=== PATIENT | male | born 1940 | race Caucasian/White ===

== ENCOUNTER 2017-05-17 13:33 | Inpatient (IN) | payer MEDICARE, BC ==
[2017-05-17] MEDS ORDERED: Amiodarone HCl 450 MG, Admixture Fee 1 EACH in Dextrose 5% in Water 250 ML IVPB SCH ×3 (14:00)
[2017-05-17 14:32] LABS: #Basophils 0.1 thou/uL (0.0-0.2); #Eosinphils 0.2 thou/uL (0.0-0.7); #Lymphocytes 1.9 thou/uL (1.20-3.40); #Monocytes 0.5 thou/uL (0.11-0.59); #Neutrophils 5.9 thou/uL (1.40-6.50); %Eosinophils 1.9 % (0.0-10.0); %Lymphocytes 22.5 % (21.0-51.0); %Monocytes 5.3 % (0.0-10.0); %Neutrophils 69.3 % (42.0-75.0); Hemoglobin 15.1 g/dL (14.0-18.0); Mean Corpuscular HGB CONC 33.8 g/dL (32.0-36.0); Mean Corpuscular Hemoglobin 34.8 pg (27.0-31.0); Mean Platelet Volume 7.6 fL (7.4-10.4); Platelet Count 129 thou/uL (130-400); RBC Distribution Width 12.6 % (11.5-14.5); Red Blood Cell (RBC) Count 4.33 mill/uL (4.70-6.10); White Blood Cell (WBC) Count 8.6 thou/uL (4.8-10.8)
[2017-05-17 14:54] LABS: ALT (SGPT) 25 U/L (8-55); AST (SGOT) 25 U/L (5-34); Albumin 3.4 g/dL (3.4-4.8); Alkaline Phosphatase 64 U/L (40-150); Anion Gap 14 mmol/L (10-20); BUN (Urea Nitrogen) 18 mg/dL (8.4-25.7); Bilirubin, Total 0.6 mg/dL (0.2-1.2); CK (CPK) 366 U/L (30-200); Calc. Creatinine Clearance 0 mL/min (70-130); Calcium 8.9 mg/dL (7.8-10.44); Carbon Dioxide 22 mmol/L (23-31); Chloride 109 mmol/L (98-107); Estimated GFR-MDRD 82; Globulin 2.8 g/dL (2.4-3.5); Glucose 146 mg/dL (83-110); Magnesium 2.1 mg/dL (1.6-2.6); Potassium 3.9 mmol/L (3.5-5.1); Protein, Total 6.2 g/dL (5.8-8.1); Sodium 141 mmol/L (136-145)
[2017-05-17 14:57] LABS: Troponin I Less than 0.010 ng/mL (< 0.028)
[2017-05-17] MEDS ORDERED: Magnesium Sulfate 3 GM in Sodium Chloride 0.9% 100 ML IVPB SCH (15:00)
[2017-05-17 15:01] LABS: CKMB 7.5 ng/mL (0-6.6)
--- NOTE | 2017-05-17 15:41 | CON ---
DATE OF CONSULTATION: 05/17/2017 REASON FOR CONSULTATION: Ventricular tachycardia. HISTORY OF PRESENT ILLNESS: Mr. Waddell is a 77-year-old gentleman. The patient has a long history of PVCs, for which he was asymptomatic. He had a history of cardiac catheterization in the remote past and no significant coronary disease. He was actually seen in the office this week, doing well, asym ptomatic, no complaints. Today, he started having episodes of recurrent near syncope and had some ch est discomfort. He called an ambulance and was found to be in a wide complex tachycardia and was bro ught here and was found to have ventricular tachycardia, rate of 200 with the same morphology as his PVCs. He has received amiodarone, now he is having nonsustained ventricular tachycardia and he is cu rrently on amiodarone drip, improving. He is asymptomatic now and doing well. PAST MEDICAL HISTORY: He had a history of PVCs which he had a high burden, although he is fairly asy mptomatic. He underwent cardiac catheterization in 2011. In August, he was found to have 20% LAD ryan que, 20% right coronary plaque, normal ejection fraction. The patient had an echocardiogram done in 05/2016. The ejection fraction 55% to 60%, did have frequent PVCs that time. The patient otherwise had an EKG done recently again showing frequent monomorphic PVCs. MEDICATIONS: Bisoprolol, pravastatin, and Ecotrin. ALLERGIES: None known. SOCIAL HISTORY: No alcohol or tobacco abuse. FAMILY HISTORY: Negative for heart disease at a young age. REVIEW OF SYSTEMS: GENERAL: Beginning to feel better, overall felt very weak when he had the tachycardia. VISION: No changes. HEARING: No changes. PULMONARY: No cough or wheezing. CARDIAC: He had near syncope and chest pain when his heart rate was 200 beats per minute, but these symptoms resolved quickly when tachycardia improved. PHYSICAL EXAMINATION: GENERAL: This is a pleasant gentleman who is resting comfortably now, feeling much better. VITAL SIGNS: His pulse now is 100 beats per minute, still has some nonsustained V-tach intermittentl y, but not the sustained ventricular tachycardia he was having, still having frequent PVCs. NECK: Neck veins are normal. Carotid normal upstrokes. No bruits. HEENT: Eyes: Sclerae nonicteric. LUNGS: Lungs clear anteriorly and laterally. CARDIAC: Frequent episodes of rapid heart rate. No murmur, rub or gallop. ABDOMEN: Soft and nontender. No hepatosplenomegaly. EXTREMITIES: No clubbing or cyanosis. There is no edema. Peripheral pulses are intact. SKIN: Warm and dry. LABORATORY DATA: Laboratories all pending. ASSESSMENT: 1. Ventricular tachycardia, sustained, responded to amiodarone. 2. Normal left ventricular function. 3. Minimal atherosclerosis of the coronaries in 2011. PLAN: 1. Intravenous amiodarone. 2. We will give intravenous magnesium. 3. Arranging for an electrophysiologic consultation. The patient likely will need ablation of ventr icular tachycardia, for which he is highly symptomatic.
--- NOTE | 2017-05-17 15:45 | HP ---
PRIMARY CARE PHYSICIAN: Dr. Luke Hung. PRIMARY DORMITORY SUPERVISOR: Dr. Zapata. REASON FOR ADMISSION: Ventricular tachycardia, presyncope, chest pain. HISTORY OF PRESENT ILLNESS: A 77-year-old male with history of SVT and premature ventricular complex es as well as dyslipidemia who presented today in the emergency room with complaint of dizziness and chest pain. The patient reports that this morning he was not feeling good. He was feeling intermitt ently dizziness as if he is going to pass out. He did not have any associated initially chest pain, palpitation or shortness of breath. He was having increasing number of dizzy spell and woozy spell w ithout any associated symptoms. He was ignoring to come to emergency room, but after lunch, he start ed having chest pain which was substernal in location associated with dizziness which was little bit more prolonged and he was feeling mild shortness of breath, mild nausea and that is why he called par amedics and paramedics brought him to the emergency room. When he came to emergency room, he was having ventricular tachycardia with heart rate about 200. He was given adenosine without any relief. The patient also took aspirin 2 times at home, one in [facility] and one after lunch. Patient was given amiodarone drip and after that his ventricular tachycardia was aborted, but subsequently patient kept getting short runs of ventricular tachycardia and multiple PVCs. Dr. Zapata was notified and Dr. Zapata saw this patient in the emergency room and he recommended CCU admission for close monitoring. When I saw this patient in the emergency room, he was having intermittent bouts of short run of ventr icular tachycardia though patient was not symptomatic. He denies any excessive caffeinated product. He denies any dyspnea on exertion. He denies any angina. He denies any UTI symptoms. He denies an y constipation, diarrhea, melena or hematochezia. He denies any abdominal pain. He denies any alcoh ol abuse. REVIEW OF SYSTEMS: The following complete review of systems was negative, unless otherwise mentioned in the HPI or below: Constitutional: Weight loss or gain, ability to conduct usual activities. Skin: Rash, itching. Eyes: Double vision, pain. ENT/Mouth: Nose bleeding, neck stiffness, pain, tenderness. Cardiovascular: Palpitations, dyspnea on exertion, orthopnea. Respiratory: Shortness of breath, wheezing, cough, hemoptysis, fever or night sweats. Gastrointestinal: Poor appetite, abdominal pain, heartburn, nausea, vomiting, constipation, or diarr hea. Genitourinary: Urgency, frequency, dysuria, nocturia. Musculoskeletal: Pain, swelling. Neurologic/Psychiatric: Anxiety, depression. Allergy/Immunologic: Skin rash, bleeding tendency. Please see my HPI for pertinent positives and negatives. All other review of systems reviewed and ne gative except as mentioned in the HPI. ADDITIONAL INFORMATION: This patient saw yesterday Dr. Zapata in his office and at that time, everyt winter was normal. The patient also has a history of dyslipidemia and he was self-cutting down his sta tin therapy because of muscle cramps. The patient also had cardiac catheterization few years ago whi ch was normal. He also had stress test which was also unremarkable. The patient is not sure when he had echocardiography. PAST MEDICAL HISTORY: Hypertension, dyslipidemia, chronic low back pain, history of irregular heartb eats. PAST SURGICAL HISTORY: Cardiac catheterization by Dr. Zapata. PAST PSYCHIATRIC HISTORY: Reviewed and negative. SOCIAL HISTORY: Patient is and lives at home with his . He drinks alcohol occasionally and rarely. He denies any smoking. He quit smoking in 1979. He denies any other illicit drug abuse . He is retired. FAMILY HISTORY: No strong family history of premature coronary artery disease, stroke or cancer. ALLERGIES: No known drug allergies. CURRENT HOME MEDICATIONS: Flexeril 10 mg t.i.d., Tylenol #3 one or two tablets q.4 hourly p.r.n., as pirin 325 mg p.o. daily, pravastatin 80 mg p.o. at bedtime, bisoprolol 5 mg p.o. daily. EMERGENCY ROOM COURSE: Patient has received magnesium sulfate 3 g, amiodarone 150 mg bolus x2 and th en drip started, IV fluid is given. PHYSICAL EXAMINATION: VITAL SIGNS: On arrival, blood pressure 94/85, pulse 215, respiratory rate 22, temperature 97.8, sat uration 97% on room air, weight 102.06 kilograms. GENERAL: Patient is currently alert, oriented, no acute distress. HEAD: Normocephalic, atraumatic. EYES: Pupils round, reactive to light. Extraocular muscles intact. ENT: Oropharynx within normal limits. Moist mucous membranes. No oral lesions. No pharyngeal eryt glenn, no exudate. NECK: Supple, no JVD, no thyromegaly, no carotid bruit, no jugular venous distention. LUNGS: Clear to auscultation without any rhonchi or rales. CARDIAC: S1, S2 appears irregular. No murmur elicited, no gallop, no rub. ABDOMEN: Soft, bowel sounds present, obesity present. No suprapubic tenderness. BACK: Examination unremarkable, no CVA tenderness. EXTREMITIES: Upper extremity passive movements of all joints are normal. Lower extremities: No celeste ma. Good peripheral pulsation. SKIN: No skin rash. HEMATOLOGICAL SYSTEM: No lymphadenopathy. PSYCHIATRIC: Normal affect. NEUROLOGIC: The patient is alert and oriented x3. Cranial nerves II-XII intact. Motor and sensatio n within normal limits. No focal neurological deficit noted. IMAGING DATA AND SIGNIFICANT LABORATORY DATA: 1. All EKG done in Emergency Room and reviewed. The patient has junctional rhythm, multiple PVCs, s hort run of ventricular tachycardia and one prolonged episode of ventricular tachycardia. 2. CBC: WBC 8.6, hemoglobin 15.1, MCV 103, platelet 129. 3. BMP: Sodium 141, potassium 3.9, chloride 109, carbon dioxide 22, BUN 18, creatinine 0.90, glucos e 146, calcium 8.9, magnesium 2.1. 4. LFT: AST 25, ALT 25, alkaline phosphatase 64, albumin 3.4, CK 366, troponin I less than 0.010, B ASSISTANT FRONT END MANAGER 160.9. ASSESSMENT AND PLAN/IMPRESSION: 1. Ventricular tachycardia, asymptomatic. Patient is hemodynamically unstable in the emergency room , he was hypotensive, he was having chest pain and angina. This patient currently is on amiodarone d rip. I spoke with Dr. Zapata and we will keep in CCU for close monitoring. Patient is also going to get magnesium sulfate in emergency room. We will continue amiodarone drip per protocol. Cardiology will be consulted. We will obtain echocardiography. This patient will need electrophysiologic cons ultation and possibly this patient will need ventricular tachycardia ablation in [place]. We will do serial cardiac enzymes to rule out acute coronary syndrome. Meanwhile, we will continue with aspirin 325 mg p.o. daily. 2. Hypertension. If blood pressure permits, then we will continue bisoprolol 5 mg p.o. daily. 3. Dyslipidemia. We will check lipid profile. We will continue pravastatin 80 mg p.o. at bedtime. We will monitor total CK. 4. Elevated BNP. We will obtain echocardiography to assess ejection fraction and other structural a bnormality. 5. Elevated total CK, may be related with his statin therapy. We will monitor CK level. 6. Macrocytosis and mild thrombocytopenia. We will start folic acid and vitamin B12 therapy. 7. Obesity. Dietary education given and weight loss education given. Healthy lifestyle measures di scussed with the patient. 8. Deep venous thrombosis prophylaxis, Lovenox 40 mg subcutaneously daily. 9. Gastrointestinal prophylaxis. Pepcid 20 mg p.o. b.i.d. 10. Code status: The patient is FULL CODE. The patient's is surrogate decision maker. Disposition plan based on clinical course. We are expecting patient's stay in the hospital more than 2 midnights. Plan of care discussed with the patient in detail in the emergency room.
[2017-05-17] MEDS ORDERED: Zolpidem Tartrate 5 MG TAB PO PRN (17:17)
[2017-05-17] MEDS ORDERED: Loratadine 10 MG TAB PO PRN (17:17)
[2017-05-17] MEDS ORDERED: Labetalol HCl 100 MG/20 ML VIAL SLOW IVP PRN (17:17)
[2017-05-17] MEDS ORDERED: Acetaminophen 325 MG TAB PO PRN (17:17)
[2017-05-17] MEDS ORDERED: Milk Of Magnesia 30 ML UDCUP PO PRN (17:17)
[2017-05-17] MEDS ORDERED: Senokot 8.6 MG TAB PO PRN (17:17)
[2017-05-17] MEDS ORDERED: Eucerin (Mineral Oil/Petrolatum,White) 30 gm Jar TOP PRN (17:17)
[2017-05-17] MEDS ORDERED: Chloraseptic Spray 180 ml Bottle PO PRN (17:17)
[2017-05-17] MEDS ORDERED: Metoclopramide HCl 10 MG/2 ML VIAL IVP PRN (17:17)
[2017-05-17] MEDS ORDERED: Nitroglycerin 0.4 MG TAB (25 Tab Bottle) SL PRN (17:17)
[2017-05-17] MEDS ORDERED: Sodium Chloride 0.65% Nasal 44 ML BOT EA NARE PRN (17:17)
[2017-05-17] MEDS ORDERED: HYDROcodone/Acetaminophen 5/325 mg Tablet PO PRN (17:17)
[2017-05-17] MEDS ORDERED: Diabetic Tussin 200 MG/10 ML UDCUP PO PRN (17:17)
[2017-05-17] MEDS ORDERED: Cyclobenzaprine 10 MG TAB PO PRN (17:17)
[2017-05-17] MEDS ORDERED: Loperamide HCl 2 MG CAP PO PRN (17:17)
[2017-05-17] MEDS ORDERED: Artificial Tears 18 DROP/0.9 ML EA EYE PRN (17:17)
[2017-05-17] MEDS ORDERED: Mag-Al 1200 mg/1200 mg/30 ML UDCUP PO PRN (17:17)
[2017-05-17] MEDS ORDERED: Metoprolol Tartrate 5 MG/5 ML VIAL ONE (18:07)
--- NOTE | 2017-05-17 20:03 | RAD ---
AP VIEW OF THE CHEST: 05/17/17 INDICATION: SVT COMPARISON: Prior exam dated 11/17/15. IMPRESSION: No acute abnormality. COMMENTS: Pacer pads overlie the chest wall. Heart size is within normal limits. The lungs are clear. No pleura l effusion or pneumothorax is evident. No acute osseous abnormality is evident. POS: [facility]
[2017-05-17] MEDS ORDERED: Metoprolol Tartrate 5 MG/5 ML VIAL IVP SCH (20:15)
[2017-05-17] MEDS: Metoprolol Tartrate 50 MG TAB PO SCH (20:36)
[2017-05-17] MEDS: Amiodarone HCl 450 MG in Dextrose 5% in Water 250 ML IVPB SCH ×2 (20:36)
[2017-05-17] MEDS: Famotidine 20 MG TAB PO SCH (20:36)
[2017-05-17] MEDS ORDERED: Pravastatin Sodium 40 MG TAB PO SCH (21:00)
[2017-05-17] MEDS: Nitroglycerin 2% Ointment 1 INCH/1 GM Packet TOP SCH (21:52)
[2017-05-18 04:18] LABS: #Basophils 0.1 thou/uL (0.0-0.2); #Eosinphils 0.3 thou/uL (0.0-0.7); #Lymphocytes 2.4 thou/uL (1.20-3.40); #Monocytes 0.7 thou/uL (0.11-0.59); #Neutrophils 5.7 thou/uL (1.40-6.50); %Basophils 0.8 % (0.0-1.0); %Eosinophils 2.9 % (0.0-10.0); %Lymphocytes 26.6 % (21.0-51.0); %Monocytes 7.9 % (0.0-10.0); %Neutrophils 61.8 % (42.0-75.0); Hemoglobin 14.7 g/dL (14.0-18.0); Mean Corpuscular HGB CONC 33.4 g/dL (32.0-36.0); Mean Corpuscular Hemoglobin 34.4 pg (27.0-31.0); Mean Platelet Volume 7.9 fL (7.4-10.4); Platelet Count 136 thou/uL (130-400); RBC Distribution Width 12.6 % (11.5-14.5); Red Blood Cell (RBC) Count 4.27 mill/uL (4.70-6.10); White Blood Cell (WBC) Count 9.2 thou/uL (4.8-10.8)
[2017-05-18 04:52] LABS: Anion Gap 10 mmol/L (10-20); BUN (Urea Nitrogen) 16 mg/dL (8.4-25.7); Calc. Creatinine Clearance 132 mL/min (70-130); Calcium 8.6 mg/dL (7.8-10.44); Carbon Dioxide 25 mmol/L (23-31); Cardiac Risk 3.7 (Less than 4.5); Chloride 110 mmol/L (98-107); Cholesterol 127 mg/dl (< 200 Desired); Estimated GFR-MDRD Greater than 90; Glucose 107 mg/dL (83-110); HDL Cholesterol 34 mg/dL (>60 Neg Risk); LDL Cholesterol, Calculated 72 mg/dL; Magnesium 2.2 mg/dL (1.6-2.6); Potassium 3.9 mmol/L (3.5-5.1); Sodium 141 mmol/L (136-145); Triglycerides 103 mg/dL (Less than 150)
[2017-05-18] MEDS: Nitroglycerin 2% Ointment 1 INCH/1 GM Packet TOP SCH ×2 (06:33→15:01)
[2017-05-18] MEDS: Metoprolol Tartrate 50 MG TAB PO SCH (08:46)
[2017-05-18] MEDS: Famotidine 20 MG TAB PO SCH (08:49)
[2017-05-18] MEDS ORDERED: Folic Acid 1 MG TAB PO SCH (09:00)
[2017-05-18] MEDS ORDERED: Aspirin 325 MG TAB PO SCH (09:00)
[2017-05-18] MEDS ORDERED: Cyanocobalamin (Vitamin B-12) 1,000 MCG TAB PO SCH (09:00)
[2017-05-18] MEDS ORDERED: Prevnar 13-Val Conj/PF 0.5 ML SYRINGE IM ONE (09:00)
[2017-05-18] MEDS ORDERED: Enoxaparin Sodium 40 MG/0.4 ML SYRINGE SC SCH (09:00)
--- NOTE | 2017-05-18 10:24 | PDOC.PN ---
- Subjective Encounter Start Date: 05/18/17 Encounter Start Time: 09:30 -: old records requested/rev Patient seen and examined. No new complaints. No overnight events still has NSVT - Objective Resuscitation Status: Resuscitation Status FULL:Full Resuscitation MAR Reviewed: Yes Vital Signs & Weight: Vital Signs (12 hours) Temp Pulse Resp Pulse Ox 05/18/17 08:00 97.9 F 77 16 98 05/18/17 07:00 97.9 F 05/18/17 03:00 98.0 F 05/17/17 23:00 98.7 F Weight Admit Weight 246 lb 11.156 oz Weight 246 lb 11.156 oz Most Recent Monitor Data Heart Rate from ECG 74 NIBP 134/82 NIBP BP-Mean 98 Respiration from ECG 25 SpO2 100 I&O: 05/17/17 05/18/17 05/19/17 06:59 06:59 06:59 Intake Total 453 250 Output Total 1070 200 Balance -617 50 Result Diagrams: 05/18/17 03:16 05/18/17 03:16 EKG Reviewed by me: Yes (NSVT) Phys Exam - Physical Examination Constitutional: NAD HEENT: PERRLA, moist MMs, sclera anicteric Neck: no JVD, supple Respiratory: no wheezing, no rales, no rhonchi Cardiovascular: no significant murmur, no rub, irregular Gastrointestinal: soft, non-tender, no distention, positive bowel sounds Musculoskeletal: no edema, pulses present Neurological: non-focal, normal sensation, moves all 4 limbs Psychiatric: normal affect, A&O x 3 Skin: no rash, normal turgor Dx/Plan (1) Chest pain Code(s): R07.9 - CHEST PAIN, UNSPECIFIED Status: Acute (2) Demand ischemia Code(s): I24.8 - OTHER FORMS OF ACUTE ISCHEMIC HEART DISEASE Status: Acute (3) Dizziness Code(s): R42 - DIZZINESS AND GIDDINESS Status: Acute (4) Elevated brain natriuretic peptide (BNP) level Code(s): R79.89 - OTHER SPECIFIED ABNORMAL FINDINGS OF BLOOD CHEMISTRY Status : Acute (5) Ventricular tachycardia Code(s): I47.2 - VENTRICULAR TACHYCARDIA Status: Acute (6) Chronic low back pain Code(s): M54.5 - LOW BACK PAIN; G89.29 - OTHER CHRONIC PAIN Status: Chronic (7) Dyslipidemia Code(s): E78.5 - HYPERLIPIDEMIA, UNSPECIFIED Status: Chronic (8) Hypertension Code(s): I10 - ESSENTIAL (PRIMARY) HYPERTENSION Status: Chronic (9) Macrocytosis Code(s): D75.89 - OTHER SPECIFIED DISEASES OF BLOOD AND BLOOD-FORMING ORGANS Status: Chronic (10) Obesity (BMI 30-39.9) Code(s): E66.9 - OBESITY, UNSPECIFIED Status: Chronic - Plan cont current plan of care * continue amiodaron drip * EP consulted and he will need ablation of VT * so will transfer to [facility] [place] * medication reviewed as below * symptomatic treatment * paper work done. Review of Systems - Review of Systems ENT: negative: Ear Pain, Ear Discharge, Nose Pain, Nose Discharge, Nose Congestion, Mouth Pain, Mouth Swelling, Throat Pain, Throat Swelling, Other Respiratory: negative: Cough, Dry, Shortness of Breath, Hemoptysis, SOB with Excertion, Pleuritic Pain, Sputum, Wheezing Cardiovascular: negative: chest pain, palpitations, orthopnea, paroxysmal nocturnal dyspnea, edema, light headedness, other Gastrointestinal: negative: Nausea, Vomiting, Abdominal Pain, Diarrhea, Constipation, Melena, Hematochezia, Other Genitourinary: negative: Dysuria, Frequency, Incontinence, Hematuria, Retention , Other Musculoskeletal: negative: Neck Pain, Shoulder Pain, Arm Pain, Back Pain, Hand Pain, Leg Pain, Foot Pain, Other Skin: negative: Rash, Lesions, Solomon, Bruising, Other - Medications/Allergies Allergies/Adverse Reactions: Allergies Allergy/AdvReac Type Severity Reaction Status Date / Time No Known Allergies Allergy Verified 05/17/17 19:48 Medications: Current Medications Acetaminophen (Tylenol) 650 mg PO Q4H PRN PRN Reason: Headache/Fever or Pain Last Admin: 05/18/17 08:46 Dose: 650 mg Hydrocodone Bitart/Acetaminophen ([place] 5/325) 1 tab PO Q4H PRN PRN Reason: Moderate Pain (4-6) Al Hydroxide/Mg Hydroxide (Maalox) 30 ml PO Q6H PRN PRN Reason: Heartburn or Indigestion Artificial Tears (Tears Naturale) 0 drop EA EYE PRN PRN PRN Reason: Dry Eyes Aspirin (Aspirin) 325 mg PO DAILY VICKIE Last Admin: 05/18/17 08:46 Dose: 325 mg Cyanocobalamin (Vitamin B-12) 1,000 mcg PO DAILY [facility] Last Admin: 05/18/17 08:52 Dose: 1,000 mcg Cyclobenzaprine HCl (Flexeril) 10 mg PO TID PRN PRN Reason: Muscle Spasm Enoxaparin Sodium (Lovenox) 40 mg SC 0900 [facility] Last Admin: 05/18/17 08:46 Dose: 40 mg Famotidine (Pepcid) 20 mg PO BID [facility] Last Admin: 05/18/17 08:49 Dose: 20 mg Folic Acid (Folvite) 1 mg PO DAILY [facility] Last Admin: 05/18/17 08:46 Dose: 1 mg Guaifenesin (Robitussin Sf) 200 mg PO Q4H PRN PRN Reason: Cough Amiodarone HCl 450 mg/ (Dextrose/Water) 259 mls @ 0 mls/hr IVPB INF [facility]; Per Protocol PRN Reason: Protocol Last Admin: 05/17/17 20:36 Dose: 259 mls Labetalol HCl (Normodyne) 10 mg SLOW IVP Q4H PRN PRN Reason: Systolic BP > 180 Loperamide HCl (Imodium) 2 mg PO PRN PRN PRN Reason: Diarrhea/Loose Stools Loratadine (Claritin) 10 mg PO DAILYPRN PRN PRN Reason: Sinus Symptoms Magnesium Hydroxide (Milk Of Magnesium) 30 ml PO DAILYPRN PRN PRN Reason: Constipation Metoclopramide HCl (Reglan) 10 mg IVP Q6H PRN PRN Reason: Nausea/Vomiting Metoprolol Tartrate (Lopressor) 50 mg PO BID [facility] Last Admin: 05/18/17 08:46 Dose: 50 mg Mineral Oil/White Petrolatum (Eucerin Cream) 0 gm TOP BIDPRN PRN PRN Reason: Dry Skin Nitroglycerin (Nitrostat) 0.4 mg SL Q5MIN PRN PRN Reason: Chest Pain Nitroglycerin (Nitro-Bid 2% Ointment) 0.5 inch TOP Q8HR [facility] Last Admin: 05/18/17 06:33 Dose: Not Given Phenol (Chloraseptic [place] 180 Ml Bot) 0 ml PO PRN PRN PRN Reason: Sore Throat Pravastatin Sodium (Pravachol) 40 mg PO HS [facility] Last Admin: 05/17/17 20:36 Dose: 40 mg Senna (Senokot) 2 tab PO HSPRN PRN PRN Reason: Constipation Sodium Chloride ([place] Nasal [place] 0.65%) 0 ml EA NARE QIDPRN PRN PRN Reason: Nasal Congestion Zolpidem Tartrate (Ambien) 5 mg PO HSPRN PRN PRN Reason: Insomnia
--- NOTE | 2017-05-18 10:52 | PDOC.CTH ---
Cardiology Progress Note - Subjective Pt. seen and eval. No new overnight events. He continues to have asymptonatic NSVTACH. He remains on amiodarone. Waiying for transfer to [facility] for EP eval. and prob. Vtach ablation. - Objective Vital Signs Temp Pulse Resp Pulse Ox 05/18/17 08:00 97.9 F 77 16 98 05/18/17 07:00 97.9 F 05/18/17 03:00 98.0 F 05/17/17 23:00 98.7 F Admit Weight 246 lb 11.156 oz Weight 246 lb 11.156 oz 05/17/17 05/18/17 05/19/17 06:59 06:59 06:59 Intake Total 453 250 Output Total 1070 500 Balance -617 -250 - Physical Examination General/Neuro: alert & oriented x3 Neck: carotid US brisk Lungs: CTA Heart: PMI normal, RRR, other: (occasional runs of rapid rate. Monitor indicates NSVTACH.) Abdomen: no HSM, NT/ND - Labs Result Diagrams: 05/18/17 03:16 05/18/17 03:16 Troponin/CKMB CK-MB (CK-2) 7.5 ng/mL (0-6.6) H* 05/17/17 14:26 Troponin I Less than 0.010 ng/mL (< 0.028) 05/17/17 14:26 - Assessment/Plan 1. NSVTACH. Frequent episodes up to 10-20 beat runs. Transfer to [facility] for probable ablation. 2. Hx. of mild CAD. cath approx. 2 years ago. CIE's unremarkable. No chest pain. He did have 1 episode of chest discomfort prior to admission. It is unlikely to have significant progression of his CAD but this may be a possible cause of the recent onset of NSVTACH. 3. Dyslipidemia. Continue statins. 4. Leg cramps. These are only at night and not likely associated with the statins. Review of Systems - Review of Systems Respiratory: reports: no symptoms reported Cardiac (ROS): reports: no symptoms reported ABD/GI: reports: no symptoms reported Musculoskeletal: reports: no symptoms reported Neurological: reports: no symptoms reported
[2017-05-18] MEDS: Amiodarone HCl 450 MG in Dextrose 5% in Water 250 ML IVPB SCH ×2 (10:56)
--- NOTE | 2017-05-18 11:37 | DIS ---
DATE OF ADMISSION: 05/17/2017 DATE OF DISCHARGE: 05/18/2017 PRIMARY CARE PHYSICIAN: Luke Hung M.D. DISCHARGE DISPOSITION: [facility] for higher level of care. PRIMARY DISCHARGE DIAGNOSES: 1. Chest pain and dizziness due to paroxysmal ventricular tachycardia. 2. Demand ischemia of myocardium. 3. Elevated BNP with normal ejection fraction. 4. Ventricular tachycardia on amiodarone drip. SECONDARY DISCHARGE DIAGNOSES: Obesity with body mass index 30, macrocytosis without anemia, hypertension, dyslipidemia, chronic low back pain, history of PVCs and irregular heartbeat. PRIMARY PROCEDURE/OPERATION: None. RADIOLOGICAL INVESTIGATION: Chest x-ray was normal. SIGNIFICANT LABS: WBC 9.2, hemoglobin 14.7, MCV 103, platelets 136, sodium 141 , potassium 3.9, BUN 16, creatinine 0.73, magnesium 2.2. LFTs normal. CK 366, CK-MB 7.5, troponin I less than 0.010. LDL 72. TSH 1.59. DISCHARGE MEDICATIONS: Patient is on the following medication prior to arrival , aspirin 325 mg p.o. daily, bisoprolol 2.5 mg p.o. daily, pravastatin 20 mg p.o. at bedtime. Currently while in hospital, the patient is getting amiodarone drip as per protocol. We started vitamin B12 1000 mcg p.o. daily, Flexeril 10 mg t.i.d. p.r.n., Pepcid 20 mg p.o. b.i.d., folic acid 1 mg p.o. daily. The patient has received Lopressor during night time and patient is also on metoprolol 50 mg p.o. b.i.d., nitropatch q.8 hourly. The patient also has received magnesium sulfate. CONTRAINDICATIONS: None. CODE STATUS: FULL CODE. INPATIENT CONSULTANTS: Dr. Zapata was consulted while in hospital. TEST RESULTS PENDING ON DISCHARGE: None. ALLERGIES: No known drug allergies. DISCHARGE PLAN: Post hospital, the patient is discharged to [facility] for higher level of care. This patient needs ventricular ablation for ventricular tachycardia. HOSPITAL COURSE: A 77-year-old male who had a cardiac catheterization which was normal and he also had echocardiography which showed normal EF. This patient has a long history of asymptomatic PVCs and which was gradually getting worse, but patient was asymptomatic up until yesterday when he was feeling more dizzy spell as well as he was having angina. The patient had prolonged run of ventricular tachycardia. He was also having several short run of ventricular tachycardia. He was evaluated by Cardiology. They recommended to start amiodarone drip overnight. We kept him in the CCU and we continued the amiodarone drip. He required a couple of doses of Lopressor. In addition to that, he also was given metoprolol 50 mg twice daily. He has reduced frequency of short run of ventricular tachycardia, but he it is still ongoing, though patient is completely asymptomatic and that is why we spoke with sulfuric acid plant supervisor and they recommended to transfer him to [facility] where they can take care of ventricular tachycardia with ablation. Paper work for discharge done and discharge medication reconciliation done. Overall, this patient is clinically stable for discharge for higher level of care. Total time spent to arrange this discharge more than 30 minutes MTDD
[2017-05-18 16:34] VITALS: TEMP 97.4
== END 2017-05-18 18:20 | disposition short-term general hospital (02) | DRG 309 ==
LOC: ERS 13:33 → CCU 15:09
PROVIDERS: ADMIT Internal Medicine; ATTEND Internal Medicine
DX: I47.2 Ventricular tachycardia (principal); I24.8 Other forms of acute ischemic heart disease; D69.6 Thrombocytopenia, unspecified; I95.9 Hypotension, unspecified; I25.10 Atherosclerotic heart disease of native coronary artery without angina pectoris; I10 Essential (primary) hypertension; E78.5 Hyperlipidemia, unspecified; E66.9 Obesity, unspecified; Z68.30 Body mass index [BMI] 30.0-30.9, adult; M54.5 Low back pain; R79.89 Other specified abnormal findings of blood chemistry
CPT/HCPCS: 36415; 71010; 80048; 80053; 80061; 82550; 82553; 83735; 83880; 84443; 84484; 85025; 93005; 93010; 93306; 96360; 96365; 96366; 96368; 96376; J0282; J1650; J3475; J7050; J7070

== ENCOUNTER 2017-06-07 05:17 | Inpatient (IN) | payer MEDICARE, BC ==
[2017-06-07 05:40] LABS: #Basophils 0.1 thou/uL (0.0-0.2); #Eosinphils 0.1 thou/uL (0.0-0.7); #Lymphocytes 3.4 thou/uL (1.20-3.40); #Monocytes 0.6 thou/uL (0.11-0.59); #Neutrophils 7.7 thou/uL (1.40-6.50); %Basophils 0.9 % (0.0-1.0); %Eosinophils 0.8 % (0.0-10.0); %Lymphocytes 28.4 % (21.0-51.0); %Monocytes 5.2 % (0.0-10.0); %Neutrophils 64.7 % (42.0-75.0); Hemoglobin 14.8 g/dL (14.0-18.0); Mean Corpuscular HGB CONC 32.6 g/dL (32.0-36.0); Mean Corpuscular Hemoglobin 33.3 pg (27.0-31.0); Platelet Count 233 thou/uL (130-400); RBC Distribution Width 12.4 % (11.5-14.5); Red Blood Cell (RBC) Count 4.43 mill/uL (4.70-6.10); White Blood Cell (WBC) Count 11.9 thou/uL (4.8-10.8)
[2017-06-07 05:51] LABS: INR-International Normal Ratio 1.1; PTT 27.4 SEC (22.9-36.1); Prothrombin Time 13.9 SEC (12.0-14.7)
[2017-06-07 06:07] LABS: CKMB 2.6 ng/mL (0-6.6)
[2017-06-07] MEDS ORDERED: Amiodarone In Dextrose 200 ML IVPB SCH (06:15)
[2017-06-07] MEDS ORDERED: Lidocaine 2 gm/D5W 500 ml 500 ML ONE (06:59)
[2017-06-07] MEDS ORDERED: Artificial Tears 18 DROP/0.9 ML EA EYE PRN (07:32)
[2017-06-07] MEDS ORDERED: Milk Of Magnesia 30 ML UDCUP PO PRN (07:32)
[2017-06-07] MEDS ORDERED: Sodium Chloride 0.65% Nasal 44 ML BOT EA NARE PRN (07:32)
[2017-06-07] MEDS ORDERED: Zolpidem Tartrate 5 MG TAB PO PRN (07:32)
[2017-06-07] MEDS ORDERED: Loperamide HCl 2 MG CAP PO PRN (07:32)
[2017-06-07] MEDS ORDERED: Mag-Al 1200 mg/1200 mg/30 ML UDCUP PO PRN (07:32)
[2017-06-07] MEDS ORDERED: Ondansetron ODT 4 MG TAB PO PRN (07:32)
[2017-06-07] MEDS ORDERED: Senokot 8.6 MG TAB PO PRN (07:32)
[2017-06-07] MEDS ORDERED: Eucerin (Mineral Oil/Petrolatum,White) 30 gm Jar TOP PRN (07:32)
[2017-06-07] MEDS ORDERED: Loratadine 10 MG TAB PO PRN (07:32)
[2017-06-07] MEDS ORDERED: Nitroglycerin 0.4 MG TAB (25 Tab Bottle) SL PRN (07:32)
[2017-06-07] MEDS ORDERED: Diabetic Tussin 200 MG/10 ML UDCUP PO PRN (07:32)
[2017-06-07] MEDS ORDERED: HYDROcodone/Acetaminophen 5/325 mg Tablet PO PRN (07:32)
[2017-06-07] MEDS ORDERED: Ondansetron HCl/PF 4 MG/2 ML Vial IVP PRN (07:32)
[2017-06-07] MEDS ORDERED: Chloraseptic Spray 180 ml Bottle PO PRN (07:32)
--- NOTE | 2017-06-07 07:38 | RAD ---
SINGLE VIEW OF THE CHEST: COMPARISON: 05/17/17. HISTORY: Ventricular tachycardia and chest pain. FINDINGS: Single view of the chest shows a normal sized cardiomediastinal silhouette. There is no evidence of c onsolidation, mass, or pleural effusion. The bones are unremarkable. IMPRESSION: No evidence of acute cardiopulmonary disease. POS: [facility]
[2017-06-07 08:57] LABS: ALT (SGPT) 31 U/L (8-55); AST (SGOT) 34 U/L (5-34); Albumin 3.5 g/dL (3.4-4.8); Alkaline Phosphatase 61 U/L (40-150); Anion Gap 12 mmol/L (10-20); BUN (Urea Nitrogen) 17 mg/dL (8.4-25.7); Bilirubin, Total 0.6 mg/dL (0.2-1.2); Calc. Creatinine Clearance 0 mL/min (70-130); Calcium 8.8 mg/dL (7.8-10.44); Carbon Dioxide 24 mmol/L (23-31); Chloride 107 mmol/L (98-107); Estimated GFR-MDRD 80; Glucose 143 mg/dL (83-110); Magnesium 2.3 mg/dL (1.6-2.6); Potassium 4.3 mmol/L (3.5-5.1); Protein, Total 6.5 g/dL (5.8-8.1); Sodium 139 mmol/L (136-145)
[2017-06-07 09:00] LABS: Troponin I 0.047 ng/mL (< 0.028)
--- NOTE | 2017-06-07 11:33 | HP ---
PRIMARY CARE PHYSICIAN: Dr. Luke Hung. REASON FOR ADMISSION: Syncope and ventricular tachycardia. HISTORY OF PRESENT ILLNESS: A 77-year-old male who was recently admitted in our hospital for presyncopal episode, at that time, patient had ventricular tachycardia. This patient has history of paroxysmal SVT as well as premature ventricular complexes and he is followed by Dr. Zapata. This patient was recently diagnosed with a symptomatic ventricular tachycardia and subsequently he required admission in ICU. He was treated with amiodarone drip and we transferred him to [facility] on 05/18/2017 for ventricular ablation. At that time, we did echocardiography in our hospital, which showed normal EF and diastolic dysfunction. After discharge from our hospital on 05/18/2017, patient was evaluated by wash mill operator there and patient had a cardiac catheterization on 2017. Per patient, cardiac catheterization was completely clean without any blockage. On Friday05/21/2017, patient had a ventricular tachycardia ablation and subsequently patient was discharged home on 05/22/2017. On discharge, the patient was prescribed propafenone 225 mg twice daily. Patient was advised to take bisoprolol 2.5 mg in the morning. The patient was taking all his medication and he was doing well up until last night. Patient reports that last night when he woke up for PE, he was having difficulty urinating. Subsequently, he felt dizzy and he was stumbling his gait and he fell and he passed out. After that he does not have any recall of event. Whatever he remembers is paramedics tried to get IV access on him. He was diagnosed with ventricular tachycardia and he required cardioversion. This patient also had a ventricular tachycardia in our emergency room, required cardioversion. Subsequently amiodarone drip was started on lidocaine drip was also started. When I saw this patient at that time, patient was asymptomatic. At this point, we are admitting for cardiogenic syncope for ventricular tachycardia. Patient denies any chest pain, palpitation. He denies any angina. He denies any constipation, diarrhea, melena, hematochezia. He denies any UTI symptoms. He denies any focal motor or sensory symptoms. REVIEW OF SYSTEMS: The following complete review of systems was negative, unless otherwise mentioned in the HPI or below: Constitutional: Weight loss or gain, ability to conduct usual activities. Skin : Rash, itching. Eyes: Double vision, pain. ENT/Mouth: Nose bleeding, neck stiffness, pain, tenderness. Cardiovascular: Palpitations, dyspnea on exertion, orthopnea. Respiratory: Shortness of breath, wheezing, cough, hemoptysis, fever or night sweats. Gastrointestinal: Poor appetite, abdominal pain, heartburn, nausea, vomiting, constipation, or diarrhea. Genitourinary: Urgency, frequency, dysuria, nocturia. Musculoskeletal: Pain, swelling. Neurologic/Psychiatric: Anxiety, depression. Allergy/Immunologic: Skin rash, bleeding tendency. Please see HPI for pertinent positives and negatives. All other review of systems reviewed and negative except as mentioned in the HPI. CURRENT HOME MEDICATIONS: Aspirin 325 mg p.o. daily, pravastatin 20 mg p.o. at bedtime, bisoprolol 2.5 mg p.o. daily, and propafenone 225 mg twice daily. PAST MEDICAL HISTORY: Hypertension, dyslipidemia, chronic low back pain, history of paroxysmal ventricular tachycardia, history of frequent premature ventricular complexes, and history of paroxysmal supraventricular tachycardia. PAST SURGICAL HISTORY: Cardiac catheterization was done by Dr. Zapata. Patient also had a cardiac catheterization at [facility] on 2017 as well as ventricular tachycardia ablation on 05/21/2017. PAST PSYCHIATRIC HISTORY: Reviewed and negative. SOCIAL HISTORY: Patient is and lives at home with his . He drinks alcohol occasionally. He denies any smoking. He quit smoking in 1979. He denies any other illicit drug abuse. He is retired. FAMILY HISTORY: No strong family history of premature coronary artery disease, stroke, or cancer. ALLERGIES: No known drug allergies. EMERGENCY ROOM COURSE: Patient is given lidocaine and amiodarone drip. PHYSICAL EXAMINATION: VITAL SIGNS: On arrival, blood pressure 106/70, pulse 85, respiratory rate 15, temperature 97.6, saturation 99%, and weight 106.5 kilograms. GENERAL: Patient is currently alert, awake, in no obvious acute distress. HEAD: Normocephalic, atraumatic. EYES: Pupils round, reactive to light. Extraocular muscles intact. ENT: Oropharynx within normal limits. Moist mucous membranes. No oral lesions. No pharyngeal erythema, no exudate. NECK: Supple. No JVD, no thyromegaly, no carotid bruit, no jugular venous distention. LUNGS: Clear to auscultation without any rhonchi or rales. CARDIAC: S1 and S2 regular. No murmur elicited, no gallop, no rub. ABDOMEN: Soft, bowel sounds present, nontender, nondistended. No organomegaly , no mass, no suprapubic tenderness. BACK: Unremarkable, no CVA tenderness. EXTREMITIES: Upper extremity passive movement of all joints are normal. Lower extremities: No edema. Good peripheral pulsation. SKIN: No skin rash. HEMATOLOGICAL: No lymphadenopathy. NEUROLOGIC: Nonfocal examination. The patient moves all 4 limbs. Plantar bilateral flexor. PSYCHIATRIC: Normal affect. SIGNIFICANT LABORATORY DATA: EKG showing normal sinus rhythm. Currently, the patient had ventricular tachycardia strip. Even in our hospital, patient had ventricular tachycardia. CBC: WBC 11.9, hemoglobin 14.8, platelet 233, MCV 102, INR 1.1. BMP: Sodium 139, potassium 4.3, chloride 107, carbon dioxide 24, BUN 17, creatinine 0.92, glucose 143, calcium 8.8. Magnesium 2.3. LFT: AST 34, ALT 31, alkaline phosphatase 61, albumin 3.5, CK 127, CK-MB 2.6, troponin I 0.010. BNP 93.9. Troponin second one is 0.047. ASSESSMENT AND PLAN: 1. Cardiogenic syncope. Patient does have a syncopal episode at home and which is explained by ventricular tachycardia. The patient will be admitted in the CCU for close monitoring, given his recurrent nature of ventricular tachycardia to address immediately if that happens in CCU. Currently, patient is on amiodarone drip and lidocaine drip. Cardiology is consulted. This patient already had echocardiography in the recent past, so no need of repeating echocardiography. We will do serial cardiac enzymes to rule out acute coronary syndrome. 2. Recurrent ventricular tachycardia. This patient had ventricular tachycardia ablation in [facility] in [place] recently on 05/21/2017 and seems like this patient has failure of VT ablation. We will continue amiodarone drip as well as lidocaine drip as per Cardiology and antiarrhythmic medication will defer to Cardiology. Hydro Mechanic will needed to be consulted again. His magnesium level is normal. We will closely monitor in the CCU. 3. Elevated troponin, likely due to demand ischemia from ventricular tachycardia and cardiogenic syncope. 4. Macrocytosis. We will continue folic acid, vitamin B12 therapy while in hospital. 5. Hypertension. We will continue bisoprolol 2.5 mg p.o. daily. 6. Dyslipidemia. We will continue pravastatin 20 mg p.o. at bedtime. 7. Deep venous thrombosis prophylaxis. Lovenox 40 mg subcu daily. 8. Gastrointestinal prophylaxis. Pepcid 20 mg p.o. b.i.d. 9. Code status: The patient is FULL CODE. The patient's is surrogate decision maker. Disposition plan based on clinical course. We are expecting patient's stay in hospital more than 2 midnights. Plan of care discussed with the patient in detail. MTDD
[2017-06-07] MEDS: Amiodarone In Dextrose 200 ML IVPB SCH ×2 (12:00→23:25)
[2017-06-07 12:08] LABS: Troponin I 0.062 ng/mL (< 0.028)
[2017-06-07 12:54] VITALS: BMI 28.8
[2017-06-07] MEDS ORDERED: Lidocaine 2 gm/D5W 500 ml 500 ML IVPB SCH (16:15)
--- NOTE | 2017-06-07 17:56 | CON ---
DATE OF CONSULTATION: 06/07/2017 PRIMARY COMPUTER PROGRAMMING MANAGER: Tata Zapata M.D. REASON FOR CONSULTATION: Ventricular tachycardia. HISTORY OF PRESENT ILLNESS: Mr. Waddell is a very pleasant 77-year-old white gentleman who comes to [facility] via EMS. He was at home, was not feeling right. He has a pulse oximeter recommended by Nilo Zapata in case he ever wants to see what his heart rate is and he was on his way to the and he jus t collapsed on the floor. He was wedged between two pieces of furniture in the wall apparently. The called 911. They came in and started resuscitation, they put the pads on him and they found phan beauchamp to be in ventricular tachycardia. He was still awake though, he received one single shock which he remembers receiving and converted him into sinus rhythm. He was having a lot of ectopy after that, nonsustained VT and a couple of more episodes of sustained VT. He was loaded on amiodarone and broug ht into the hospital. He has a history of several PVCs in the past and ended up having syncope and s ustained ventricular tachycardia in 05/17. He was admitted, he responded well to amiodarone and was transferred to [place] for an ablation. He actually had 2 procedures done over there. He had a heart catheterization that showed nonobstructive coronary artery disease and eventually had a VT ablation which was apparently successful. He had not had any problems since. PAST MEDICAL HISTORY: 1. Hypertension. 2. Hyperlipidemia. 3. Chronic low back pain. 4. History of VT as above. 5. History of paroxysmal SVT as well. PAST SURGICAL HISTORY: 1. Cardiac [place] [address] Zapata and again recently at [facility]. 2. Recent VT ablation on 05/21. OUTPATIENT MEDICATIONS: Include, 1. Aspirin 325 mg a day. 2. Pravastatin 20 mg at bedtime. 3. Bisoprolol 2.5 mg a day. 4. Propafenone 225 mg twice a day. ALLERGIES: No known drug allergies. FAMILY HISTORY: Noncontributory. SOCIAL HISTORY: Drinks alcohol socially, quit smoking in 1979. No drug use. REVIEW OF SYSTEMS: A 12-point review of systems was done and is all negative unless stated in the hi story of present illness. PHYSICAL EXAMINATION: VITAL SIGNS: Temperature 98.1, pulse 81, respiratory rate 20, satting 98% on 1 liter. GENERAL: Awake, alert, oriented x3, in no distress. HEENT: Normocephalic. He has got a small gash in the left hindu. NECK: Supple. LUNGS: Clear. CARDIOVASCULAR: S1, S2, no S3 or S4, no murmurs. ABDOMEN: Soft. Positive bowel sounds. EXTREMITIES: No edema. SKIN: Warm and dry. LABORATORY WORK: Reviewed. White count 11, hemoglobin 14, hematocrit 45, platelet count 233. Coags were unremarkable. Chemistry unremarkable, normal electrolytes, glucose of 143, troponin was 0.01, 0.04, 0.06. BNP was 93, normal CK and CK-MB. Albumin of 3.5. Chest x-ray showed no acute process. ASSESSMENT AND PLAN: 1. Syncope. 2. Ventricular tachycardia. 3. Irritable LV on amiodarone only, requiring addition of lidocaine. PLAN: 1. At this point, he continues to have a lot of runs of nonsustained VT, even on both amiodarone and lidocaine. We will continue this overnight tomorrow. We will plan on starting to wean off lidocain e. We will obtain an electrophysiology consultation and make sure that we were not missing anything. We will get magnesium drawn to make sure it is not low, but normal potassium suggest otherwise. 2. Continue ICU observation. Thank you for letting us to participate in the care of your patient. We will follow.
[2017-06-07] MEDS: Enoxaparin Sodium 40 MG/0.4 ML SYRINGE SC SCH (18:08)
[2017-06-07] MEDS: Acetaminophen 325 MG TAB PO PRN (20:41)
[2017-06-07] MEDS: Simvastatin 5 MG TAB PO SCH (20:41)
[2017-06-07] MEDS: Famotidine 20 MG TAB PO SCH (20:41)
--- NOTE | 2017-06-07 22:27 | CON ---
DATE OF CONSULTATION: 06/07/2017 HISTORY OF PRESENT ILLNESS: Mr. Waddell is a very pleasant 77-year-old who was admitted for ventricula r tachycardia. He is not intubated. He has been loaded with amiodarone and placed on lidocaine drip. He says he has had a history of mul tiple PVCs for almost his entire life. He was treated with a beta chuck when Dr. Curtis used to take care of him. He recently went to [place] for a V-tach ablation. He has had 2 cardiac catheterizations one here and one over there that showed nonobstructive coronary disease. He is in no distress and in sinus rhythm when I evaluated him in the ICU. I am seeing him because of his presence in the Critical Care Unit. PAST MEDICAL HISTORY: Remarkable for hypertension, lipid disorder, history of back pain. MEDICATIONS: He takes aspirin, pravastatin, bisoprolol, and propafenone prior to admission. ALLERGIES: He has no drug allergies. SOCIAL HISTORY: He is not a smoker or drinker. He denies drug use. FAMILY HISTORY: Negative for lung disease in early age. REVIEW OF SYSTEMS: Twelve-point is otherwise negative. PHYSICAL EXAMINATION: GENERAL: He is afebrile. He is in no distress. VITAL SIGNS: Heart rate is 82, blood pressure 114/73 this evening, respiratory rates in the teens to low 20s. HEAD AND NECK: Unremarkable. LUNGS: Clear. HEART: Regular rhythm. S1 and S2 are normal. ABDOMEN: Soft and nontender. EXTREMITIES: Without asymmetry. LABORATORY DATA: White count 11.9, hemoglobin 14.8, platelets 233. Coags were normal. Electrolytes were normal. Glucose was 143. IMPRESSION: Ventricular tachycardia, recurrent after ventricular tachycardia ablation. Plan per Car diology. There were no respiratory issues at this time. I will be happy to follow while he is in e Critical Care Unit, very pleasant gentleman. This is a 50-minute pulmonary consultation in which greater than 50% of the time was spent on the uni t coordinating care, reviewing records, reviewing radiographs and discussing plan of care.
[2017-06-08 03:38] LABS: #Basophils 0.1 thou/uL (0.0-0.2); #Eosinphils 0.2 thou/uL (0.0-0.7); #Lymphocytes 2.4 thou/uL (1.20-3.40); #Monocytes 0.9 thou/uL (0.11-0.59); %Eosinophils 1.7 % (0.0-10.0); %Lymphocytes 24.9 % (21.0-51.0); %Monocytes 9.6 % (0.0-10.0); %Neutrophils 62.9 % (42.0-75.0); Hemoglobin 14.3 g/dL (14.0-18.0); Mean Corpuscular HGB CONC 33.1 g/dL (32.0-36.0); Mean Corpuscular Hemoglobin 33.6 pg (27.0-31.0); Mean Platelet Volume 6.9 fL (7.4-10.4); Platelet Count 189 thou/uL (130-400); RBC Distribution Width 12.4 % (11.5-14.5); Red Blood Cell (RBC) Count 4.27 mill/uL (4.70-6.10); White Blood Cell (WBC) Count 9.5 thou/uL (4.8-10.8)
[2017-06-08 04:08] LABS: Anion Gap 10 mmol/L (10-20); BUN (Urea Nitrogen) 15 mg/dL (8.4-25.7); Calc. Creatinine Clearance 120 mL/min (70-130); Calcium 8.5 mg/dL (7.8-10.44); Carbon Dioxide 24 mmol/L (23-31); Chloride 107 mmol/L (98-107); Estimated GFR-MDRD Greater than 90; Glucose 125 mg/dL (83-110); Potassium 3.8 mmol/L (3.5-5.1); Sodium 137 mmol/L (136-145)
[2017-06-08] MEDS ORDERED: Clopidogrel Bisulfate 75 MG TAB ONE (08:27)
[2017-06-08] MEDS: Enoxaparin Sodium 40 MG/0.4 ML SYRINGE SC SCH (08:46)
[2017-06-08] MEDS: Famotidine 20 MG TAB PO SCH ×2 (08:46→20:43)
[2017-06-08] MEDS: Cyanocobalamin (Vitamin B-12) 1,000 MCG TAB PO SCH (08:47)
[2017-06-08] MEDS: Aspirin 325 MG TAB PO SCH (08:47)
[2017-06-08] MEDS: Folic Acid 1 MG TAB PO SCH (08:47)
--- NOTE | 2017-06-08 09:39 | PDOC.PN ---
- Subjective Encounter Start Date: 06/08/17 Encounter Start Time: 07:00 -: old records requested/rev pt is on amiodaron drip and lidocaine drip, no further runs of VT, pt is asymtomatic and seated in chair Patient seen and examined. No new complaints. No overnight events - Objective Resuscitation Status: Resuscitation Status FULL:Full Resuscitation MAR Reviewed: Yes Vital Signs & Weight: Vital Signs (12 hours) Temp Pulse Resp Pulse Ox 06/08/17 08:00 98.2 F 88 18 99 06/08/17 07:00 98.2 F 06/08/17 04:00 98.3 F 06/08/17 00:00 98.0 F Most Recent Monitor Data Heart Rate from ECG 94 NIBP 125/85 NIBP BP-Mean 105 Respiration from ECG 20 SpO2 98 I&O: 06/07/17 06/08/17 06/09/17 06:59 06:59 06:59 Intake Total 1593.4 Output Total 1075 200 Balance 518.4 -200 Result Diagrams: 06/08/17 03:29 06/08/17 03:29 EKG Reviewed by me: Yes (nsr) Phys Exam - Physical Examination Constitutional: NAD HEENT: PERRLA, moist MMs, sclera anicteric Neck: no JVD, supple Respiratory: no wheezing, no rales, no rhonchi Cardiovascular: RRR, no significant murmur, no rub Gastrointestinal: soft, non-tender, no distention, positive bowel sounds Musculoskeletal: no edema, pulses present Neurological: non-focal, normal sensation, moves all 4 limbs Lymphatic: no nodes Psychiatric: normal affect, A&O x 3 Skin: no rash, normal turgor Dx/Plan (1) Syncope, cardiogenic Code(s): R55 - SYNCOPE AND COLLAPSE Status: Acute Comment: due to VT (2) Demand ischemia Code(s): I24.8 - OTHER FORMS OF ACUTE ISCHEMIC HEART DISEASE Status: Acute Comment: Due to VT (3) Ventricular tachycardia Code(s): I47.2 - VENTRICULAR TACHYCARDIA Status: Acute Comment: Paroxysmal and recurrent (4) Chronic low back pain Code(s): M54.5 - LOW BACK PAIN; G89.29 - OTHER CHRONIC PAIN Status: Chronic (5) Dyslipidemia Code(s): E78.5 - HYPERLIPIDEMIA, UNSPECIFIED Status: Chronic (6) Hypertension Code(s): I10 - ESSENTIAL (PRIMARY) HYPERTENSION Status: Chronic (7) Macrocytosis Code(s): D75.89 - OTHER SPECIFIED DISEASES OF BLOOD AND BLOOD-FORMING ORGANS Status: Chronic - Plan cont current plan of care * continue amiodrone and lidocaine drip as per cardiology * further plan will defer to cardiology * pt is stable with current treatment * medication reviewed as below * symptomatic treatment. Review of Systems - Review of Systems Constitutional: negative: fever, chills, sweats, weakness, malaise, other ENT: negative: Ear Pain, Ear Discharge, Nose Pain, Nose Discharge, Nose Congestion, Mouth Pain, Mouth Swelling, Throat Pain, Throat Swelling, Other Respiratory: negative: Cough, Dry, Shortness of Breath, Hemoptysis, SOB with Excertion, Pleuritic Pain, Sputum, Wheezing Cardiovascular: negative: chest pain, palpitations, orthopnea, paroxysmal nocturnal dyspnea, edema, light headedness, other Gastrointestinal: negative: Nausea, Vomiting, Abdominal Pain, Diarrhea, Constipation, Melena, Hematochezia, Other Genitourinary: negative: Dysuria, Frequency, Incontinence, Hematuria, Retention , Other Musculoskeletal: negative: Neck Pain, Shoulder Pain, Arm Pain, Back Pain, Hand Pain, Leg Pain, Foot Pain, Other Skin: negative: Rash, Lesions, Solomon, Bruising, Other Neurological: negative: Weakness, Numbness, Incoordination, Change in Speech, Confusion, Seizures, Other - Medications/Allergies Allergies/Adverse Reactions: Allergies Allergy/AdvReac Type Severity Reaction Status Date / Time No Known Allergies Allergy Verified 05/17/17 19:48 Medications: Current Medications Acetaminophen (Tylenol) 650 mg PO Q4H PRN PRN Reason: Headache/Fever or Pain Last Admin: 06/07/17 20:41 Dose: 650 mg Hydrocodone Bitart/Acetaminophen ([place] 5/325) 1 tab PO Q4H PRN PRN Reason: Moderate Pain (4-6) Al Hydroxide/Mg Hydroxide (Maalox) 30 ml PO Q6H PRN PRN Reason: Heartburn or Indigestion Artificial Tears (Tears Naturale) 0 drop EA EYE PRN PRN PRN Reason: Dry Eyes Aspirin (Aspirin) 325 mg PO DAILY VICKIE Last Admin: 06/08/17 08:47 Dose: 325 mg Bisoprolol Fumarate (Zebeta) 2.5 mg PO DAILY [facility] Cyanocobalamin (Vitamin B-12) 1,000 mcg PO DAILY [facility] Last Admin: 06/08/17 08:47 Dose: 1,000 mcg Enoxaparin Sodium (Lovenox) 40 mg SC 0900 [facility] Last Admin: 06/08/17 08:46 Dose: 40 mg Famotidine (Pepcid) 20 mg PO BID [facility] Last Admin: 06/08/17 08:46 Dose: 20 mg Folic Acid (Folvite) 1 mg PO DAILY [facility] Last Admin: 06/08/17 08:47 Dose: 1 mg Guaifenesin (Robitussin Sf) 200 mg PO Q4H PRN PRN Reason: Cough Amiodarone HCl/Dextrose (Nexterone) 200 mls @ 0 mls/hr IVPB INF [facility] PRN Reason: Per Protocol Last Admin: 06/07/17 23:25 Dose: 200 mls Lidocaine HCl/Dextrose (Lidocaine 2 Gm/D5w 500 Ml) 500 mls @ 0 mls/hr IVPB INF [facility]; As Directed PRN Reason: Protocol Loperamide HCl (Imodium) 2 mg PO PRN PRN PRN Reason: Diarrhea/Loose Stools Loratadine (Claritin) 10 mg PO DAILYPRN PRN PRN Reason: Sinus Symptoms Magnesium Hydroxide (Milk Of Magnesium) 30 ml PO DAILYPRN PRN PRN Reason: Constipation Mineral Oil/White Petrolatum (Eucerin Cream) 0 gm TOP BIDPRN PRN PRN Reason: Dry Skin Nitroglycerin (Nitrostat) 0.4 mg SL Q5MIN PRN PRN Reason: Chest Pain Ondansetron HCl (Zofran Odt) 4 mg PO Q6H PRN PRN Reason: Nausea/Vomiting Ondansetron HCl (Zofran) 4 mg IVP Q6H PRN PRN Reason: Nausea/Vomiting Phenol (Chloraseptic [place] 180 Ml Bot) 0 ml PO PRN PRN PRN Reason: Sore Throat Senna (Senokot) 2 tab PO HSPRN PRN PRN Reason: Constipation Simvastatin (Zocor) 10 mg PO HS [facility] Last Admin: 06/07/17 20:41 Dose: 10 mg Sodium Chloride ([place] Nasal [place] 0.65%) 0 ml EA NARE QIDPRN PRN PRN Reason: Nasal Congestion Zolpidem Tartrate (Ambien) 5 mg PO HSPRN PRN PRN Reason: Insomnia
[2017-06-08] MEDS: Bisoprolol Fumarate 5 MG TAB PO SCH (10:02)
[2017-06-08] MEDS: Amiodarone In Dextrose 200 ML IVPB SCH (12:18)
--- NOTE | 2017-06-08 13:55 | PRG ---
DATE OF SERVICE: 06/08/2017 SUBJECTIVE: He has no complaints. He has had no recurrent ventricular tachycardia. OBJECTIVE: VITAL SIGNS: Blood pressure 116/74, heart rate 60, respiratory rate 15, oximetry is 98. LUNGS: Clear. HEART: Regular rhythm. S1 and S2 are normal. ABDOMEN: Soft and nontender. LABORATORY DATA: White count 9.5, hemoglobin 14.3, platelets 189. Sodium 137, potassium 3.8, chlori de 107, bicarbonate 24, BUN 15, creatinine 0.77, glucose 125. IMPRESSION: 1. Ventricular tachycardia, status post emergent cardioversion while he was awake. 2. Recent ventricular tachycardia ablation. 3. Minimal coronary disease. PLAN: Continue supportive care per Cardiology. Appears to be stable at this time. Lidocaine has be en weaned per Cardiology.
--- NOTE | 2017-06-08 17:50 | PDOC.CTH ---
Cardiology Progress Note - Subjective No new issues or concerns. No more syncope but continues to have runs of non sustained VT but much less as compared to yesterday. - Objective Vital Signs Temp Pulse Resp Pulse Ox 06/08/17 16:00 98.3 F 98 06/08/17 12:00 98.1 F 96 06/08/17 08:00 98.2 F 88 18 99 06/08/17 07:00 98.2 F 06/07/17 06/08/17 06/09/17 06:59 06:59 06:59 Intake Total 1593.4 586 Output Total 1075 975 Balance 518.4 -389 - Physical Examination General/Neuro: alert & oriented x3, NAD Neck: no JVD present Lungs: CTA, unlabored respirations Heart: RRR Abdomen: NT/ND Extremities: other: (no edema) - Telemetry Telemetry Rhythm: NSR, NS VT - Labs Result Diagrams: 06/08/17 03:29 06/08/17 03:29 Troponin/CKMB CK-MB (CK-2) 2.6 ng/mL (0-6.6) 06/07/17 05:26 Troponin I 0.062 ng/mL (< 0.028) H 06/07/17 11:33 - Assessment/Plan 1. VT 2. Normal coronaries. PLAN: - Will wean lidocaine - Continue amiodarone gtt. - EP consultation tomorrow.
[2017-06-08] MEDS: Simvastatin 5 MG TAB PO SCH (20:43)
[2017-06-09] MEDS: Amiodarone In Dextrose 200 ML IVPB SCH (00:53)
[2017-06-09] MEDS: Acetaminophen 325 MG TAB PO PRN (07:37)
[2017-06-09] MEDS: Enoxaparin Sodium 40 MG/0.4 ML SYRINGE SC SCH (07:38)
[2017-06-09] MEDS: Folic Acid 1 MG TAB PO SCH (07:38)
[2017-06-09] MEDS: Famotidine 20 MG TAB PO SCH ×2 (07:38→20:32)
[2017-06-09] MEDS: Cyanocobalamin (Vitamin B-12) 1,000 MCG TAB PO SCH (07:38)
[2017-06-09] MEDS: Aspirin 325 MG TAB PO SCH (07:38)
[2017-06-09] MEDS: Bisoprolol Fumarate 5 MG TAB PO SCH (07:38)
[2017-06-09] MEDS ORDERED: Potassium Chloride 20 MEQ TAB PO SCH (11:15)
--- NOTE | 2017-06-09 11:27 | PRG ---
DATE OF SERVICE: 06/09/2017 SUBJECTIVE: Mr. Waddell as outlined in the chart was readmitted to the hospital with recurrent sustain ed ventricular tachycardia. The patient was placed on intravenous amiodarone. He was transiently on lidocaine, but he has stoppe d that now. He is feeling well. OBJECTIVE: VITAL SIGNS: Blood pressure 100/70. Pulse 66, it is regular; it is sinus with occasional PVC. LUNGS: Clear. CARDIAC: Normal S1, normal S2. ABDOMEN: Soft and nontender. EXTREMITIES: No edema. ASSESSMENT: 1. Recurrent ventricular arrhythmia with recent ablation. 2. No significant coronary disease. 3. Indeterminate troponins, probably related to tachycardia and cardioversion. PLAN: 1. Okay to move to telemetry. 2. Dr. Howell is planning on putting a defibrillator tomorrow. 3. We will probably need repeat ablation.
[2017-06-09] MEDS ORDERED: Amiodarone HCl 450 MG, Admixture Fee 1 EACH in Dextrose 5% in Water 250 ML IVPB SCH ×3 (11:30)
[2017-06-09] MEDS ORDERED: Amiodarone 200 MG TAB PO SCH (11:30)
[2017-06-09] MEDS: Amiodarone HCl 450 MG in Dextrose 5% in Water 250 ML IVPB SCH ×2 (12:31)
--- NOTE | 2017-06-09 12:34 | PDOC.PN ---
- Subjective Encounter Start Date: 06/09/17 Encounter Start Time: 09:00 Patient seen and examined. No new complaints. No overnight events - Objective Resuscitation Status: Resuscitation Status FULL:Full Resuscitation MAR Reviewed: Yes Vital Signs & Weight: Vital Signs (12 hours) Temp Pulse Resp Pulse Ox 06/09/17 11:00 98.1 F 06/09/17 08:00 97.9 F 88 16 98 06/09/17 07:32 94 L 06/09/17 07:00 97.9 F 06/09/17 04:00 98.3 F 94 L Most Recent Monitor Data Heart Rate from ECG 70 NIBP 109/78 NIBP BP-Mean 86 Respiration from ECG 16 SpO2 98 I&O: 06/08/17 06/09/17 06/10/17 06:59 06:59 06:59 Intake Total 1593.4 1260 450 Output Total 1075 2625 500 Balance 518.4 -1365 -50 Result Diagrams: 06/08/17 03:29 06/08/17 03:29 EKG Reviewed by me: Yes (nsvt) Phys Exam - Physical Examination Constitutional: NAD HEENT: PERRLA, moist MMs, sclera anicteric Neck: no JVD, supple Respiratory: no wheezing, no rales, no rhonchi Cardiovascular: RRR, no significant murmur, no rub Gastrointestinal: soft, non-tender, no distention, positive bowel sounds Musculoskeletal: no edema, pulses present Neurological: non-focal, normal sensation, moves all 4 limbs Psychiatric: normal affect, A&O x 3 Skin: no rash, normal turgor Dx/Plan (1) Syncope, cardiogenic Code(s): R55 - SYNCOPE AND COLLAPSE Status: Acute Comment: due to VT (2) Demand ischemia Code(s): I24.8 - OTHER FORMS OF ACUTE ISCHEMIC HEART DISEASE Status: Acute Comment: Due to VT (3) Ventricular tachycardia Code(s): I47.2 - VENTRICULAR TACHYCARDIA Status: Acute Comment: Paroxysmal and recurrent (4) Chronic low back pain Code(s): M54.5 - LOW BACK PAIN; G89.29 - OTHER CHRONIC PAIN Status: Chronic (5) Dyslipidemia Code(s): E78.5 - HYPERLIPIDEMIA, UNSPECIFIED Status: Chronic (6) Hypertension Code(s): I10 - ESSENTIAL (PRIMARY) HYPERTENSION Status: Chronic (7) Macrocytosis Code(s): D75.89 - OTHER SPECIFIED DISEASES OF BLOOD AND BLOOD-FORMING ORGANS Status: Chronic - Plan cont current plan of care * continue amiodaron drip * transfer to tele * tomorrow AICD placement * medication reviewed as below * symptomatic treatment. Review of Systems - Review of Systems ENT: negative: Ear Pain, Ear Discharge, Nose Pain, Nose Discharge, Nose Congestion, Mouth Pain, Mouth Swelling, Throat Pain, Throat Swelling, Other Respiratory: negative: Cough, Dry, Shortness of Breath, Hemoptysis, SOB with Excertion, Pleuritic Pain, Sputum, Wheezing Cardiovascular: negative: chest pain, palpitations, orthopnea, paroxysmal nocturnal dyspnea, edema, light headedness, other Gastrointestinal: negative: Nausea, Vomiting, Abdominal Pain, Diarrhea, Constipation, Melena, Hematochezia, Other Genitourinary: negative: Dysuria, Frequency, Incontinence, Hematuria, Retention , Other Musculoskeletal: negative: Neck Pain, Shoulder Pain, Arm Pain, Back Pain, Hand Pain, Leg Pain, Foot Pain, Other Skin: negative: Rash, Lesions, Solomon, Bruising, Other - Medications/Allergies Allergies/Adverse Reactions: Allergies Allergy/AdvReac Type Severity Reaction Status Date / Time No Known Allergies Allergy Verified 05/17/17 19:48 Medications: Current Medications Acetaminophen (Tylenol) 650 mg PO Q4H PRN PRN Reason: Headache/Fever or Pain Last Admin: 06/09/17 07:37 Dose: 650 mg Hydrocodone Bitart/Acetaminophen ([place] 5/325) 1 tab PO Q4H PRN PRN Reason: Moderate Pain (4-6) Al Hydroxide/Mg Hydroxide (Maalox) 30 ml PO Q6H PRN PRN Reason: Heartburn or Indigestion Amiodarone HCl (Cordarone) 200 mg PO TID [facility] Amiodarone HCl (Cordarone) 200 mg PO NOW [facility] Stop: 06/09/17 13:00 Last Admin: 06/09/17 11:42 Dose: 200 mg Artificial Tears (Tears Naturale) 0 drop EA EYE PRN PRN PRN Reason: Dry Eyes Aspirin (Aspirin) 325 mg PO DAILY [facility] Last Admin: 06/09/17 07:38 Dose: 325 mg Bisoprolol Fumarate (Zebeta) 2.5 mg PO DAILY [facility] Last Admin: 06/09/17 07:38 Dose: 2.5 mg Cyanocobalamin (Vitamin B-12) 1,000 mcg PO DAILY [facility] Last Admin: 06/09/17 07:38 Dose: 1,000 mcg Famotidine (Pepcid) 20 mg PO BID [facility] Last Admin: 06/09/17 07:38 Dose: 20 mg Folic Acid (Folvite) 1 mg PO DAILY [facility] Last Admin: 06/09/17 07:38 Dose: 1 mg Guaifenesin (Robitussin Sf) 200 mg PO Q4H PRN PRN Reason: Cough Amiodarone HCl 450 mg/ (Dextrose/Water) 259 mls @ 12 mls/hr IVPB INF [facility] PRN Reason: Protocol Last Admin: 06/09/17 12:31 Dose: 259 mls Loperamide HCl (Imodium) 2 mg PO PRN PRN PRN Reason: Diarrhea/Loose Stools Loratadine (Claritin) 10 mg PO DAILYPRN PRN PRN Reason: Sinus Symptoms Magnesium Hydroxide (Milk Of Magnesium) 30 ml PO DAILYPRN PRN PRN Reason: Constipation Mineral Oil/White Petrolatum (Eucerin Cream) 0 gm TOP BIDPRN PRN PRN Reason: Dry Skin Nitroglycerin (Nitrostat) 0.4 mg SL Q5MIN PRN PRN Reason: Chest Pain Ondansetron HCl (Zofran Odt) 4 mg PO Q6H PRN PRN Reason: Nausea/Vomiting Ondansetron HCl (Zofran) 4 mg IVP Q6H PRN PRN Reason: Nausea/Vomiting Phenol (Chloraseptic [place] 180 Ml Bot) 0 ml PO PRN PRN PRN Reason: Sore Throat Potassium Chloride (K-Dur) 40 meq PO NOW [facility] Stop: 06/09/17 14:00 Last Admin: 06/09/17 11:41 Dose: 40 meq Senna (Senokot) 2 tab PO HSPRN PRN PRN Reason: Constipation Simvastatin (Zocor) 10 mg PO [facility] Last Admin: 06/08/17 20:43 Dose: 10 mg Sodium Chloride ([place] Nasal Foster 0.65%) 0 ml EA NARE QIDPRN PRN PRN Reason: Nasal Congestion Zolpidem Tartrate (Ambien) 5 mg PO HSPRN PRN PRN Reason: Insomnia
--- NOTE | 2017-06-09 13:25 | PRG ---
DATE OF SERVICE: 06/09/2017 SUBJECTIVE: Mr. Waddell has had no more ventricular tachycardia. He is having PVCs. He has been seen by Cardiology and pattern marker today. OBJECTIVE: LUNGS: Clear. HEART: Regular rhythm. ABDOMEN: Soft. LABORATORY DATA: There is no new lab today. IMPRESSION: 1. Status post ventricular tachycardia with emergent cardioversion. 2. Status post ventricular tachycardia ablation. PLAN: EP evaluation.
--- NOTE | 2017-06-09 14:01 | CON ---
DATE OF CONSULTATION: 06/09/2017 ELECTROPHYSIOLOGY CONSULTATION REPORT REFERRING PHYSICIAN: Tata Zapata M.D. I am seeing Mr. Waddell at our [facility] Telemetry Floor as an electrophysiologic excellence consultant. His problems are: 1. Recurrent ventricular tachycardia. A. Syncope due to VT required cardioversion by EMS in the field. 2. On current propafenone use. 3. Prior history of VT on 05/17/2017 requiring transfer to [place] and subsequent ablation on 05/20/2017. 3B. Currently, good response to IV amiodarone and lidocaine. 4. History of left heart catheterization in 2011 and also in 05/2017 reveals only mild coronary artery disease. No intervention was needed. 5. History of preserved LV function, 50-55%, mild aortic regurgitation. No other significant structural heart disease. 6. Coronary risk factors. A. Hypertension. 7. Dyslipidemia. ALLERGIES: None noted. MEDICATIONS: Aspirin, atorvastatin, bisoprolol, propafenone 225 mg twice a day. SUBJECTIVE: Mr. Waddell is here with symptoms of a syncopal spell which happened very suddenly. He had some problems urinating. He was stumbling in his gait and eventually passed out. He cannot recall the event. He woke up with the paramedics present. Eventually required cardioversion, which restored sinus rhythm. Amiodarone was started and lidocaine also. By the time of arrival to the hospital, he was asymptomatic. He currently denies chest pains. No fever, chills, cough, no palpitations. No stroke-like symptoms. No neurological deficits, occasional PVC seen only, The rest of the 12 systems otherwise unremarkable. PAST MEDICAL HISTORY: As above. SOCIAL HISTORY: Patient denies smoking, ETOH or drug use. FAMILY HISTORY: Noncontributory. OBJECTIVE DATA: VITAL SIGNS: Blood pressure is 171, heart rate 70, respirations 13, temperature 98.1 degrees Fahrenheit. GENERAL: He is alert and oriented man in no apparent distress. NECK: Supple. Jugular veins are not distended. CHEST: Coarse without crackles. CARDIAC: Heart sounds are regular rate and rhythm. No murmur or gallop. ABDOMEN: Benign. Bowel sounds are positive. EXTREMITIES: Lower extremities without edema, clubbing or cyanosis. Pulses adequate. NEUROLOGIC: Patient is nonfocal. MUSCULOSKELETAL: Without joint swelling or deformities. SKIN: Without rash. DATABASE: EKG is reviewed, currently in sinus rhythm with some ST-T changes. Telemetry strips from ambulance reveals a wide complex tachycardia, subsequently in sinus rhythm. The wide complex tachycardia is extremely wide duration. The cycle length is about 360 milliseconds. LABORATORY DATA: White count 9.5, hemoglobin 14.3, platelet count is 189. INR 1.1. Sodium 137, potassium 3.8, BUN is 18, creatinine 0.77. ASSESSMENT AND PLAN: Mr. Waddell is a pleasant 77-year-old man with a prior history of ventricular tachycardia in the setting of no significant structural heart disease. He underwent ablation in [place] about 3 weeks ago, but discharged on propafenone. She now has recurrent ventricular tachycardia and arrhythmia, which are sustained. It is now well suppressed with IV amiodarone and lidocaine already discontinued. I discussed these issues with him. At this point, he appears to be stable, but I am still concerned about recurrence of arrhythmias in the future. Hence, his symptoms are more profound than before, has a full loss of consciousness. I think it is reasonable to consider ICD implantation at this time. Hence amiodarone is working well acutely on him. We will continue that as well. Will transition him to p.o. form later depending on his progress and we might consider repeat ablation efforts as well. Risk and benefits of the ICD implant were detailed. Discussed with the patient and nurse as well as made Dr Zapata aware. Thank you again for allowing me to participate in the care of this patient. LENNY
[2017-06-09] MEDS: Amiodarone 200 MG TAB PO SCH ×2 (15:25→20:32)
[2017-06-09] MEDS: Simvastatin 5 MG TAB PO SCH (20:31)
[2017-06-10] MEDS: Famotidine 20 MG TAB PO SCH ×2 (08:30→21:34)
[2017-06-10] MEDS: Bisoprolol Fumarate 5 MG TAB PO SCH (08:30)
[2017-06-10] MEDS: Folic Acid 1 MG TAB PO SCH (08:30)
[2017-06-10] MEDS: Aspirin 325 MG TAB PO SCH (08:31)
[2017-06-10] MEDS: Cyanocobalamin (Vitamin B-12) 1,000 MCG TAB PO SCH (08:31)
[2017-06-10] MEDS: Amiodarone 200 MG TAB PO SCH ×3 (08:31→21:34)
[2017-06-10] MEDS: Amiodarone HCl 450 MG in Dextrose 5% in Water 250 ML IVPB SCH ×2 (10:53)
[2017-06-10] MEDS ORDERED: PHENYLEPHRINE-NS 100 MCG/ML 10 ML SYRINGE ONE (12:39)
[2017-06-10] MEDS ORDERED: Propofol 200 MG/20 ML VIAL ONE (12:39)
[2017-06-10] MEDS ORDERED: ePHEDrine/0.9% NaCl/PF SYRINGE 50 mg/10 ml ONE (12:39)
[2017-06-10] MEDS ORDERED: Glycopyrrolate 0.2 MG/ML 5 ML SYRINGE ONE (12:39)
[2017-06-10] MEDS ORDERED: Propofol 1,000 MG/100 ML VIAL IV ONE (15:09)
[2017-06-10] MEDS ORDERED: Ketamine 50 MG/ML VIAL ONE (15:09)
[2017-06-10] MEDS ORDERED: CEFAZOLIN/Water 2 GM/20 ML SYRINGE ONE (15:53)
[2017-06-10] MEDS ORDERED: Lidocaine 2% Jelly 5 ML TUBE ONE (16:02)
[2017-06-10] MEDS ORDERED: Ondansetron HCl/PF 4 MG/2 ML Vial IVP PRN ×2 (17:20→18:39)
[2017-06-10] MEDS ORDERED: Promethazine HCl 25 MG/ML VIAL SLOW IVP PRN (17:20)
[2017-06-10] MEDS ORDERED: Morphine Sulfate 2 MG/ML SYRINGE SLOW IVP PRN (17:20)
[2017-06-10] MEDS ORDERED: Silver Sulfadiazine 1% Cream 50 GM JAR TOP PRN (18:39)
[2017-06-10] MEDS ORDERED: traMADol HCl 50 MG TAB PO PRN (18:39)
[2017-06-10] MEDS ORDERED: Mag-Al 1200 mg/1200 mg/30 ML UDCUP PO PRN (18:39)
[2017-06-10] MEDS ORDERED: Bisacodyl 5 MG TAB PO PRN (18:39)
[2017-06-10] MEDS ORDERED: Acetaminophen 325 MG TAB PO PRN (18:39)
[2017-06-10] MEDS ORDERED: Temazepam 15 MG CAP PO PRN (18:39)
[2017-06-10] MEDS ORDERED: diphenhydrAMINE 25 MG CAP PO PRN (18:39)
[2017-06-10] MEDS ORDERED: Bisacodyl 10 MG SUPP PR PRN (18:39)
[2017-06-10] MEDS ORDERED: Nitroglycerin 0.4 MG TAB (25 Tab Bottle) SL PRN (18:39)
[2017-06-10] MEDS: Cephalexin 250 MG CAP PO SCH ×2 (19:27→23:36)
[2017-06-10] MEDS ORDERED: Amiodarone HCl 450 MG in Dextrose 5% in Water 250 ML IVPB PRN ×2 (19:30)
--- NOTE | 2017-06-10 21:08 | PDOC.PN ---
- Subjective Encounter Start Date: 06/10/17 Encounter Start Time: 19:00 Subjective: f/u for cardiogenic syncope due to V-tach post cardioversion and now -: AICD placement. Hx of VT ablation on Propafenone outpt now Amiodarone. - Objective Resuscitation Status: Resuscitation Status FULL:Full Resuscitation MAR Reviewed: Yes Vital Signs & Weight: Vital Signs (12 hours) Temp Pulse Resp BP Pulse Ox 06/10/17 17:55 97.7 F 83 19 143/83 H 99 06/10/17 13:55 97.6 F 66 18 122/91 H 96 06/10/17 12:00 97.7 F Most Recent Monitor Data Heart Rate from ECG 66 NIBP 103/67 NIBP BP-Mean 82 Respiration from ECG 19 SpO2 96 I&O: 06/09/17 06/10/17 06/11/17 06:59 06:59 06:59 Intake Total 1260 1522 296 Output Total 2625 2350 400 Balance -1365 -828 -104 Result Diagrams: 06/08/17 03:29 06/08/17 03:29 Additional Labs: Laboratory Tests 06/07/17 06/07/17 06/07/17 05:26 05:26 08:26 Troponin I 0.010 0.047 H B-Natriuretic Peptide 93.9 06/07/17 11:33 Troponin I 0.062 H B-Natriuretic Peptide EKG Reviewed by me: Yes (Tele - SR) Phys Exam - Physical Examination Constitutional: NAD HEENT: PERRLA, oral pharynx no lesions Neck: no JVD, supple Respiratory: no wheezing, clear to auscultation bilateral Cardiovascular: RRR Gastrointestinal: soft, non-tender, no distention, positive bowel sounds Musculoskeletal: no edema, pulses present Neurological: normal sensation, moves all 4 limbs Psychiatric: A&O x 3 Skin: normal turgor, cap refill <2 seconds Dx/Plan (1) Syncope, cardiogenic Code(s): R55 - SYNCOPE AND COLLAPSE Status: Acute Comment: due to VT, s/p AICD placement (2) Chest pain Code(s): R07.9 - CHEST PAIN, UNSPECIFIED Status: Acute Comment: Secondary to #1, LHC with essentially normal coronary anatomy (3) Demand ischemia Code(s): I24.8 - OTHER FORMS OF ACUTE ISCHEMIC HEART DISEASE Status: Acute Comment: Due to VT (4) Ventricular tachycardia Code(s): I47.2 - VENTRICULAR TACHYCARDIA Status: Acute Comment: Paroxysmal and recurrent, post AICD, continue Amiodarone (5) Hypertension Code(s): I10 - ESSENTIAL (PRIMARY) HYPERTENSION Status: Chronic Qualifiers: Hypertension type: essential hypertension Qualified Code(s): I10 - Essential (primary) hypertension Comment: Continue home BP regimen - Plan continue antibiotics, PT/OT, psychologist social, DVT proph w/SCDs Stable overall -: Continue Amiodarone 400mg BID -: ASA 325mg daily -: continue Bisoprolol 2.5mg daily -: PCXR in am * .
[2017-06-10] MEDS: Simvastatin 5 MG TAB PO SCH (21:33)
[2017-06-11] MEDS: Cephalexin 250 MG CAP PO SCH ×2 (05:13→11:49)
--- NOTE | 2017-06-11 08:19 | RAD ---
CHEST ONE VIEW: History: Post cardiac device placement. Comparison: 06-07-17 FINDINGS: There is a new AICD, single lead. No pneumothorax. Cardiac silhouette and mediastinal contours were u nchanged. IMPRESSION: Uncomplicated placement of AICD. POS: [facility]
[2017-06-11] MEDS: Aspirin 325 MG TAB PO SCH (09:14)
[2017-06-11] MEDS: Amiodarone 200 MG TAB PO SCH (09:14)
[2017-06-11] MEDS: Bisoprolol Fumarate 5 MG TAB PO SCH (09:14)
[2017-06-11] MEDS: Famotidine 20 MG TAB PO SCH (09:15)
[2017-06-11] MEDS: Folic Acid 1 MG TAB PO SCH (09:15)
[2017-06-11] MEDS: Cyanocobalamin (Vitamin B-12) 1,000 MCG TAB PO SCH (09:15)
--- NOTE | 2017-06-11 10:02 | PRG ---
DATE OF SERVICE: 06/11/2017 SUBJECTIVE: Mr. Waddell is doing well one day after his implant. He denies dyspnea, no chest pains, m inor ICD insertion site discomfort noted. OBJECTIVE: VITAL SIGNS: Blood pressure 132/84, heart rate 79, respirations 18, temperature 97.9 degrees Fahrenh eit. GENERAL: He is alert and oriented man in no apparent distress. NECK: Supple. Jugular veins not distended. CHEST: Coarse, no crackles. CARDIOVASCULAR: Heart sounds regular rate and rhythm. Left subclavian ICD insertion site is without major reaction, seems to be appropriate one day post-implant. ABDOMEN: Benign. Bowel sounds positive. EXTREMITIES: Lower extremities without edema, clubbing or cyanosis. I reviewed the telemetry strips reveals sinus rhythm, occasional PVCs. No ventricular tachyarrhythmi a's noted. LABORATORY DATA: Chest x-ray this morning reveals no pneumothorax. His labs are unchanged. ICD elizabeth d in adequate location. ASSESSMENT AND PLAN: Mr. Waddell is a pleasant 77-year-old man with history of congestive heart failu re and cardiomyopathy. He has underwent VT ablation, but had recurrent ventricular tachycardia, a sy ncopal spell and we implanted an ICD, currently the arrhythmia's are well suppressed with amiodarone. PLAN: 1. At this point, continue p.o. amiodarone taper. 2. Routine postop ICD care, postop antibiotics recommended. 3. Followup in the office as scheduled. 4. Consider repeat VT ablation at a later date.
[2017-06-11 12:17] VITALS: BP 125/74; TEMP 97.8
--- NOTE | 2017-06-11 13:17 | PRG ---
DATE OF SERVICE: 06/11/2017 Mr. Waddell is doing well. He is about to be released home. No chest pain or pressure. PHYSICAL EXAMINATION: VITAL SIGNS: Blood pressure 125/74, pulse 80 regular. LUNGS: Clear. CARDIAC: Normal S1, normal S2. ASSESSMENT: 1. Status post defibrillator implantation. 2. Recurrent ventricular tachycardia. PLAN: 1. He is on amiodarone 400 mg twice a day for 2 weeks, then 200 mg twice a day. 2. Bisoprolol. 3. He is on Keflex. 4. He is to see me in a few weeks. He will also be seeing Dr. Howell, ultimately will probably need repeat VT ablation.
--- NOTE | 2017-06-11 13:59 | DIS ---
DATE OF ADMISSION: 06/07/2017 DATE OF DISCHARGE: 06/11/2017 DISCHARGE DIAGNOSES: 1. Status post cardiogenic syncope due to ventricular tachycardia. 2. Status post ventricular tachycardia with cardioversion. 3. Status post automatic implantable cardioverter defibrillator placement on 06/10/2017. 4. Demand ischemia secondarily to ventricular tachycardia/cardioversion. 5. Status post left heart catheterization with normal coronary anatomy. 6. History of recurrent ventricular tachycardia. CONSULTATIONS: Dr. Zapata and Ajit with Cardiology Service. Dr. Eddy with Pulmonology Service. Dr. Howell with Electrophysiology Service. PERTINENT LABORATORY AND X-RAY FINDINGS: Basic metabolic profile within normal limits. Magnesium 2. 3. LFTs within normal limits. Troponin I ranged between 0.010 to 0.062. BNP 94. CBC showed a whi te blood cell count ranging between 9.5-11.9, hemoglobin 14.3. Portable chest x-ray dated 06/07/2017 showed no acute cardiopulmonary process. Left heart catheterization dated 06/07/2017, showed normal coronary anatomy. Please see dictated report for full details. 2D transthoracic echocardiogram james ed 05/18/2017 showed ejection fraction of 60% to 65%. Diastolic dysfunction noted. Mild aortic regu rgitation. HOSPITAL COURSE: The patient was admitted to the critical care unit after initially presenting statu s post syncopal episode with associated ventricular tachycardia with prior ablation and outpatient an tiarrhythmic therapy with propafenone. The patient was again noted with recurrent ventricular tachyc ardia undergoing cardioversion in the emergency room then initiated on lidocaine and amiodarone infus ion. The patient was evaluated by the Cardiology Service with recommendations for electrophysiology evaluation. The patient underwent EP evaluation and subsequent AICD placement with continuation of a miodarone therapy. The patient tolerated the procedure on 06/10/2017 with telemetry monitoring showi ng sinus mechanism without evidence of recurrent ventricular tachycardia. Occasional PVCs were noted ; however, the patient remained asymptomatic. Overall, the patient remained clinically stable throug h the hospital course, tolerating regular oral intake, ambulating without assistance or difficulty an d ready for discharge on 06/11/2017. DISCHARGE MEDICATIONS: 1. Amiodarone 200 mg 1 tab p.o. t.i.d. x7 days, followed by 200 mg p.o. b.i.d. x7 days, followed by 200 mg p.o. daily. 2. Enteric coated aspirin 325 mg 1 tab p.o. daily. 3. Bisoprolol 2.5 mg p.o. daily. 4. Keflex 500 mg p.o. q.6 hours x7 days. 5. Pravachol 20 mg p.o. at bedtime. FOLLOWUP: The patient will follow up with his primary care provider, Dr. Edwin Hung within 7 days of d ischarge. The patient will follow up with Dr. Howell with Electrophysiology Service within 10 days of discharge. The patient may follow up with Dr. Zapata with [facility] Cardiology Service and to me ll his office for appointment time and date. CONDITION ON DISCHARGE: Stable. ACTIVITY: Per EP recommendations and guidelines. DIET: Heart healthy. CODE STATUS: FULL. DISPOSITION: Home on 06/11/2017.
== END 2017-06-11 13:17 | disposition home or self-care (01) | DRG 245 ==
LOC: ERS 05:17 → ERHOLD 07:12 → CCU 12:17 → 2NO 06-10 14:06
PROVIDERS: ADMIT Internal Medicine; ATTEND Internal Medicine
PROC: 0JH608Z Insertion of Defibrillator Generator into Chest Subcutaneous Tissue and Fascia, Open Approach (ICD-10-PCS; principal; 2017-06-10)
PROC: 0JH60PZ Insertion of Cardiac Rhythm Related Device into Chest Subcutaneous Tissue and Fascia, Open Approach (ICD-10-PCS; 2017-06-10)
PROC: 3E0102A Introduction of Anti-Infective Envelope into Subcutaneous Tissue, Open Approach (ICD-10-PCS; 2017-06-10)
DX: I47.2 Ventricular tachycardia (principal); I24.8 Other forms of acute ischemic heart disease; I42.9 Cardiomyopathy, unspecified; I11.0 Hypertensive heart disease with heart failure; I50.9 Heart failure, unspecified; E78.5 Hyperlipidemia, unspecified; M54.5 Low back pain; Z87.891 Personal history of nicotine dependence; D75.89 Other specified diseases of blood and blood-forming organs
CPT/HCPCS: 33249; 36415; 71045; 80048; 80053; 82553; 83735; 83880; 84484; 85025; 85610; 85730; 93005; 96365; 96366; C1777; C1786; J0282; J1650; J2001; J2704; J3490; J7070

== ENCOUNTER 2018-02-16 07:47 | Inpatient (IN) | payer MEDICARE, BC ==
[~2018-02-16 07:47] MED LIST: Ondansetron HCl/PF 4 MG/2 ML Vial IVP PRN; Ondansetron ODT 4 MG TAB SL PRN
[2018-02-16 08:20] LABS: PTT 29.1 SEC (22.9-36.1); Prothrombin Time 13.4 SEC (12.0-14.7)
[2018-02-16 08:33] LABS: ALT (SGPT) 17 U/L (8-55); AST (SGOT) 20 U/L (5-34); Alkaline Phosphatase 77 U/L (40-150); Anion Gap 11 mmol/L (10-20); BUN (Urea Nitrogen) 18 mg/dL (8.4-25.7); Bilirubin, Total 0.7 mg/dL (0.2-1.2); CK (CPK) 288 U/L (30-200); Calc. Creatinine Clearance 0 mL/min (70-130); Calcium 9.2 mg/dL (7.8-10.44); Carbon Dioxide 26 mmol/L (23-31); Chloride 106 mmol/L (98-107); Estimated GFR-MDRD 85; Globulin 3.3 g/dL (2.4-3.5); Glucose 120 mg/dL (83-110); Lipase 36 U/L (8-78); Potassium 4.3 mmol/L (3.5-5.1); Protein, Total 7.3 g/dL (5.8-8.1); Sodium 139 mmol/L (136-145)
[2018-02-16 08:36] LABS: CKMB 4.9 ng/mL (0-6.6); Troponin I Less than 0.010 ng/mL (< 0.028)
[2018-02-16 08:45] LABS: Band 3 % (5-11); Eosinophils 1 % (0-10); Hemoglobin 16.7 g/dL (14.0-18.0); Lymphocytes 77 % (21-51); MDiff Complete? YES; Macrocytosis SLIGHT = 6-15 cells (100X) (0-5/hpf); Mean Corpuscular HGB CONC 32.1 g/dL (32.0-36.0); Mean Corpuscular Hemoglobin 32.3 pg (27.0-31.0); Mean Platelet Volume 7.5 fL (7.4-10.4); Monocytes 2 % (0-10); Neutrophil 17 % (42-75); PLT Morphology Comment Appears Decreased; Platelet Count 125 thou/uL (130-400); Polychromasia SLIGHT = 2-3 cells (100X) (0-2/hpf); RBC Distribution Width 12.6 % (11.5-14.5); Red Blood Cell (RBC) Count 5.15 mill/uL (4.70-6.10); White Blood Cell (WBC) Count 2.5 thou/uL (4.8-10.8)
--- NOTE | 2018-02-16 09:07 | RAD ---
CHEST 1 VIEW: Date: 02/16/18 HISTORY: Tachycardia. COMPARISON: 06/11/17. FINDINGS: Cardiac silhouette is magnified by projection. Pulmonary vasculature unremarkable. Mediastinum is mid line with a single lead left subclavian cardiac electronic device. No lobar consolidation or evidence of pneumothorax. Defibrillator patch overlies the right shoulder. IMPRESSION: No active cardiopulmonary abnormalities are demonstrated. POS: [facility]
[2018-02-16] MEDS ORDERED: Amiodarone HCl 450 MG, Admixture Fee 1 EACH in Dextrose 5% in Water 250 ML IVPB SCH (10:00)
[2018-02-16 10:21] LABS: Magnesium 2.2 mg/dL (1.6-2.6); Phosphorus 3.5 mg/dL (2.3-4.7)
[2018-02-16] MEDS ORDERED: Lidocaine 2% PF 100 mg/5 ml Syringe ONE (11:12)
[2018-02-16] MEDS: Lidocaine 2 gm/D5W 500 ml 500 ML IVPB SCH (11:24)
[2018-02-16] MEDS ORDERED: Nitrofurantoin Monohyd/M-Cryst 100 MG CAP PO SCH (11:30)
[2018-02-16] MEDS ORDERED: Lidocaine 2% PF 100 mg/5 ml Syringe IVP SCH (11:30)
[2018-02-16 11:34] LABS: Troponin I Less than 0.010 ng/mL (< 0.028)
[2018-02-16 11:40] VITALS: BMI 28.4
[2018-02-16] MEDS ORDERED: Acetaminophen 650 MG Suppository PR PRN (13:08)
[2018-02-16] MEDS ORDERED: Acetaminophen 325 MG TAB PO PRN (13:08)
[2018-02-16] MEDS ORDERED: Bisacodyl 5 MG TAB PO PRN (13:08)
[2018-02-16] MEDS ORDERED: Sotalol HCl 80 MG TAB PO SCH (13:30)
--- NOTE | 2018-02-16 13:47 | CON ---
DATE OF CONSULTATION: 02/16/2018 REASON FOR CONSULTATION: Repetitive ventricular tachycardia. HISTORY OF PRESENT ILLNESS: Mr. Waddell is a pleasant 77-year-old gentleman with a history of ventricu lar tachycardia. He has undergone ablation on 2 separate occasions for the ventricular tachycardia. He also has had a defibrillator implant. The device was recently interrogated and he was found to h ave some additional ventricular tachycardia. Dr. Howell apparently had a discussion with the patient a bout potentially repeating the ablation. The patient had lightheadedness and dizziness this morning, checked his pulse oximeter found that he had repetitive tachycardia, ultimately came to the emergenc y room where he was found to have repetitive ventricular tachycardia. He had no chest pain or pressure and was not short of breath. PAST MEDICAL HISTORY: He has a history of cardiac catheterization in 2011 only minimal plaquing in t he coronary arteries. The patient otherwise had been doing well. MEDICATIONS: The medication he was taking bisoprolol 5 mg a day and recently started on Macrobid for a urinary tract infection. The patient otherwise is doing well. REVIEW OF SYSTEMS: CONSTITUTIONAL: No significant weight gain or loss. VISION: No changes. HEARING: No changes. PULMONARY: No cough or wheezing. GASTROINTESTINAL: No nausea, vomiting, diarrhea. SKIN: No rashes. NEUROLOGIC: No unilateral weakness or numbness. PSYCHIATRIC: No unusual depression or anxiety. PHYSICAL EXAMINATION: GENERAL: This is a pleasant elderly gentleman resting comfortably. VITAL SIGNS: Current blood pressure 100/60, pulse is in the 70-80 range with still intermittent vent ricular tachycardia, but it has lessened. HEENT: Eyes; sclerae nonicteric. Mouth; mucous membranes moist. NECK: Supple, no lymphadenopathy. LUNGS: Clear, no wheezing, rales or rhonchi. CARDIAC: Normal S1, normal S2. There is no murmur, rub or gallop. ABDOMEN: Soft, nontender. EXTREMITIES: Warm, dry, no clubbing, cyanosis or edema. LABORATORY AND X-RAY FINDINGS: EKG reveals repetitive episodes of ventricular tachycardia, although they have decreased. The heart rate is about 160 beats per minute with the V-tach, potassium is 4.3, magnesium was 2.2. ASSESSMENT: 1. Repetitive ventricular tachycardia. 2. Normal left ventricular function. 3. Urinary tract infection. PLAN: 1. He has been given amiodarone. 2. Lidocaine has been added as the amiodarone alone seemed to be ineffective. Dr. Howell due for the consultation ? additional ablation.
[2018-02-16 14:39] LABS: Troponin I Less than 0.010 ng/mL (< 0.028)
--- NOTE | 2018-02-16 16:05 | ULT ---
RENAL ULTRASOUND: INDICATIONS: History of urinary tract infection. FINDINGS: No focal or renal lesion or hydronephrosis is evident. The right renal cortical thickness was 1.2 cm . The right kidney measured 9 x 4.8 x 5.2 cm in size. The left kidney measured 10.4 x 5.7 x 5 cm. The left renal cortical thickness was 1.7 cm. Bilateral ureteral jets are identified at the level of the bladder. The pre-void bladder volume was 484 mL. IMPRESSION: 1. No focal renal lesion or hydronephrosis. 2. Pre-void bladder volume of 484 mL. POS: [facility]
--- NOTE | 2018-02-16 16:20 | HP ---
PRIMARY CARE PROVIDER: Luke Hung M.D. CHIEF COMPLAINT: Lightheadedness. HISTORY OF PRESENT ILLNESS: Mr. Waddell is a pleasant 77-year-old gentleman who was seen at [facility] on 02/16/2018. He has a history of ventricular tachycardia. He had an ablation in May at [facility]. A couple of weeks later, he had a defibrillator placed at this facility. He underwent a s econd ablation in mid August at [facility]. He saw loan processing supervisor on 01/21/2018. Electrophysio logist recommended another ablation. The patient wanted to wait and see. He saw Dr. Zapata about 5 days ago in the office. He was found to have arrhythmias on interrogation of defibrillator. His bis oprolol dose was increased at that time. Three days ago, he saw urologist as outpatient and was star darshana on antibiotics for urinary tract infection. Over the last few months, he has been having on and off lightheadedness. He denies any syncopal epis odes. He reports that he had to hold onto furniture at times so that he does not fall down. Last co uple of nights, he went to the bathroom during the night and then tried lying on his right side. He reports palpitations. He reports checking the heart rate with a pulse oximeter and he tells me that the heart rate was in the 170s and lasted about 10 seconds. He felt more oozy today than usual. Therefore, he came to the emergency room. REVIEW OF SYSTEMS: All other systems reviewed and found to be negative. PAST MEDICAL HISTORY: Hypertension, dyslipidemia, chronic low back pain, ventricular tachycardia and paroxysmal supraventricular tachycardia. PAST SURGICAL HISTORY: Cardiac catheterization, ventricular tachycardia ablation x2 and ICD placemen t. FAMILY HISTORY: No family history of premature coronary artery disease. ALLERGIES: No known drug allergies. CURRENT MEDICATIONS: Aspirin 325 mg daily, betamethasone/propylene glycol ointment as needed, bisopr olol 5 mg daily, finasteride 5 mg daily, gabapentin 300 mg 2 times a day, pravastatin 40 mg at bedtim e, tamsulosin 0.4 mg 2 times a daily. SOCIAL HISTORY: Patient denies tobacco use, alcohol use or recreational drug use. CODE STATUS: I discussed his code status. He is FULL CODE. His is the surrogate decision make r. PHYSICAL EXAMINATION: GENERAL: On examination, Mr. Waddell is awake and alert, not in acute distress. VITAL SIGNS: Blood pressure is 104/78, pulse 68, respiratory rate 16 and oxygen saturation 100% on 2 liters oxygen. He is afebrile. EYES: No scleral icterus. No conjunctival pallor. ENT: Moist mucosal membranes. No oropharyngeal erythema or exudates. NECK: Supple, nontender. Trachea is midline. RESPIRATORY: Accessory muscles of breathing are not active. Chest wall movements are symmetric bila terally. LUNGS: Clear to auscultation without wheeze, rhonchi or crepitations. CARDIOVASCULAR: S1 and S2 are heard, regular. Peripheral pulses palpable. No carotid bruit, no per icardial rub. ABDOMEN: Soft, nontender, bowel sounds are heard, no hepatomegaly, no splenomegaly. NEUROLOGIC: Cranial nerves II-XII intact. Deep tendon reflexes 2+. MUSCULOSKELETAL: Power is 5/5 in all 4 extremities. SKIN: No rashes or subcutaneous nodules. LYMPHATIC: No cervical lymphadenopathy. PSYCHIATRIC: Normal mood, normal affect, patient is oriented to person, place, and time. IMAGING DATA AND LABORATORY DATA: Mr. Waddell's labs and investigations were reviewed. I reviewed his electrocardiogram from 07:53 hours today, which shows run of ventricular tachycardia, nonsustained. There are no ST changes to suggest an acute coronary syndrome. I also reviewed his chest x-ray, whi ch does not show any pulmonary infiltrates. He has leukopenia with white count of 2,500, of which 77 % are lymphocytes, 17% are neutrophils, normal hemoglobin of 16.7, MCV elevated at 101, platelet coun t decreased at 125, INR 1.0, unremarkable comprehensive metabolic profile and normal troponin I x3. Lipase is normal. Magnesium is normal at 2.2. Potassium is normal at 4.3. ASSESSMENT AND PLAN: Mr. Waddell is a pleasant 77-year-old gentleman who was seen at [facility] on 02/16/2018. His problem list includes: 1. Ventricular tachycardia: Mr. Waddell is presenting with runs of ventricular tachycardia. He has b een started on amiodarone. He will be admitted to the Critical Care Unit. Cardiology Service and lmonary Service are being consulted for ongoing management. Electrophysiology Service will also be c onsulted. 2. Lymphocytosis: Etiology is unclear. We will recheck CBC in the morning. If lymphocytosis persi sts, we will initiate further workup as needed. 3. Urinary tract infection: Urology Service has started patient on antibiotic, which will be contin ued. 4. Hypertension: Monitor vital signs, titrate antihypertensives as needed. 5. Dyslipidemia: Continue statin. 6. Benign prostate hypertrophy: Continue finasteride and tamsulosin. Many thanks for allowing me to participate in your patient's care. Please feel free to contact me wi th any questions or concerns.
[2018-02-16] MEDS: Atorvastatin Calcium 10 MG TAB PO SCH (21:07)
[2018-02-16] MEDS: Nitrofurantoin Monohyd/M-Cryst 100 MG CAP PO SCH (21:08)
[2018-02-16] MEDS: Gabapentin 300 MG CAP PO SCH (21:08)
[2018-02-16] MEDS: Tamsulosin HCl 0.4 MG CAP PO SCH (21:08)
[2018-02-16] MEDS: Sotalol HCl 80 MG TAB PO SCH (21:10)
--- NOTE | 2018-02-16 22:00 | CON ---
DATE OF CONSULTATION: 02/16/2018 CONSULTING PHYSICIAN: Dr. Valdez. REASON FOR CONSULTATION: ICU management following encompasses 50 minutes time, of that time, greater than 50% was spent with the patient and/or on the patient's units in the hospital. HISTORY OF PRESENT ILLNESS: The patient is a 77-year-old male who comes to the hospital with repetit luz elena ventricular tachycardia. He has been seen by Dr. Howell with Dr. Zapata. He has been started on l idocaine drip and sotalol. He has had EP study in the past. He has implantable defibrillator, which did not go off with these episodes because it is not set to go off until he has rates above 180 and apparently his rate got into the 160s. Right now, he is feeling fine and has no complaints. He has had no chest pain or shortness of breath. PAST MEDICAL HISTORY: 1. Ventricular tachycardia. 2. Hypertension. 3. Hyperlipidemia. 4. Chronic back pain. PAST SURGICAL HISTORY: Defibrillator placement. MEDICATIONS PRIOR TO ADMISSION: Propofol and Macrobid. ALLERGIES: None. SOCIAL HISTORY: Nonsmoker, does not consume alcohol. FAMILY MEDICAL HISTORY: Unremarkable. REVIEW OF SYSTEMS: A 12-point review of systems is otherwise negative. PHYSICAL EXAMINATION: VITAL SIGNS: Temperature 97.8, pulse 65, respirations 16, blood pressure 105/72, O2 saturation 96% r oom air. GENERAL: He is awake, alert, in no distress. HEENT: Pupils react. Sclerae icteric. Oropharynx clear. NECK: No adenopathy or JVD, no bruits. LUNGS: Clear without wheezing or rhonchi. CARDIAC: S1, S2 regular, without murmur. He has a defibrillator palpable left upper quadrant of the chest. ABDOMEN: Soft, nontender, nondistended. EXTREMITIES: No clubbing, cyanosis, or edema. LABORATORY DATA: White cell count 2.5, hematocrit 51.9, platelet count 125 with 77% lymphocytes. IN R 1.0. Sodium 139, potassium 4.3, chloride 106, CO2 is 29, BUN 18, creatinine 0.8, glucose 120. ASSESSMENT: 1. Ventricular tachycardia. 2. Leukopenia with elevated lymphocyte count. RECOMMENDATIONS: Cardiology is adjusting his cardiac medications and hopefully, he will avoid second EP study. I would recommend that his lymphocytosis be worked up as an outpatient with Oncology to r ule out such entities as chronic lymphocytic leukemia.
--- NOTE | 2018-02-16 23:06 | CON ---
DATE OF CONSULTATION: 02/16/2018 I was not specifically consulted, but I was told by the that the patient was being admitted and he was recently seen in my office for an infection and I wanted to make sure that he continued to have appropriate treatment for this. Patient reports feeling dizzy, lightheaded with concern for palpitations, so ultimately he was admitted after concerns for abnormal EKGs and for further cardiac monitoring. He reports that he did start the Macrobid on Friday and has taken one dose twice a day since then and he can tell that it helped from a voiding standpoint with burning sensation. Of note, when he was seen in the office on , he had 400 residual and so a straight cath'ed to 0mL, and he has never had retention before. He was already on maximum medications and so I emphasized the need for surgical therapy before he goes into permanent retention, and I was going to see him back for cystoscopy and trus as well as anticipate getting a cardiac workup. PAST MEDICAL HISTORY: Hypertension, high cholesterol, rapid atrial fibrillation , which was treated in 05/2017 and prediabetes. PAST SURGICAL HISTORY: Includes the cardiac ablation, which he had in May of this year as well as an ICD implantation later that month, a pilonidal cyst and tonsils remotely. MEDICATIONS: Aspirin, bisoprolol, pravastatin, clobetasol, tamsulosin, finasteride, cyclobenzaprine, Neurontin. ALLERGIES: None. SOCIAL HISTORY: He smoked for 20 years, but quit in 1979. He does not drink or use drugs. He exercises once or twice a week at the gym. FAMILY HISTORY: Dad at 87 with heart disease. Mom at 77 of unknown reasons. REVIEW OF SYSTEMS: He denies any hematuria, but did have further difficulty early this morning at 3 or 4 in the morning with voiding, but was able to void and feel empty by 06:30. He denies any specific chest pain or shortness of breath. He does not have any cough, diarrhea, or constipation. PHYSICAL EXAMINATION: GENERAL: He is comfortable and alert and oriented in the bed. VITAL SIGNS: He has been afebrile with vital signs stable other than the occasional tachycardia for which he was admitted. He is using a urinal for urination. ABDOMEN: Soft, nondistended, nontender. He did not have significant urgency or need to void when pressed suprapubically. His testes are descended bilaterally without masses. Phallus was circumcised without lesions. No meatal stenosis. LABORATORY DATA: Reveal a low white count, normal H&H and a platelet count of 125. Chemistries were normal with a glucose of 120, but a creatine kinase of 288. There is no urine on this day, but his recent urine from my office had 7- 10 WBCs, 0-3 RBCs, 3+ bacteria and 0-3 squamous cells that was from the catheterized specimen. We drained him with the culture growing Staphylococcus epidermis, which is sensitive to nitrofurantoin. ASSESSMENT AND PLAN: We have a 77-year-old male admitted with cardiac issues with a recent urinary tract infection secondary to incomplete emptying, and BPH on maximum medications. He will ultimately need to be on a laser vaporization of the prostate sooner than later. I discussed this with Dr. Zapata and he suspects if the same thing is occurring as it transpired in May, he may need ablation again. From my standpoin, I have ordered the Macrobid, and I will ensure his tamsulosin and finasteride are restarted. If there is any concern about his emptying, the bladder scan can be obtained, but I would hold off on placement of Olivier unless there is significant discomfort to the patient or residual consistently greater than 300 mL. GIven his recent UTI, I'll also order a ANETTE. MTDD
--- NOTE | 2018-02-17 00:08 | CON ---
DATE OF CONSULTATION: 02/16/2018 REFERRING PHYSICIAN: Tata Zapata M.D. I am seeing Mr. Waddell at our [facility] ICU as an electrophysiology technical solutions consultant. His problem s are: 1. Recurrent ventricular tachyarrhythmias. A. History of PVC and VT ablation in May 2017, redo ablation in 09/10/2017. B. Current admission with nonsustained VT arrhythmias mostly below treatment zone. C. Remote history of syncope in the setting of ventricular tachycardia. 2. Status post ICD implant in May with currently adequately functioning Medtronic dual franchesca mber device. 3. History of structurally normal LVEF and no occlusive coronary arteries in the past heart catheter ization. 4. Risk factors include hypertension, hyperlipidemia. 5. History of paroxysmal supraventricular tachycardia. 6. History of chronic back pain. ALLERGIES: None. MEDICATIONS: At home include bisoprolol 2.5 mg twice a day, aspirin 325 daily, pravastatin 40 mg p.o. at bedtime, tamsulosin 0.4 mg twice a day, gabapentin 300 mg twice a day, finasteride 5 mg da lola. SUBJECTIVE: Mr. Waddell is here with recurrent palpitations. He noted dizziness and palpitations even tually. They were recurrent. He did not receive an ICD shock, he did not pass out. He came to the ER and he was started on amiodarone and subsequently, he was admitted. Currently, he also required lidocaine hence recurrent despite of the amiodarone boluses. Currently, he denies angina, CHF. No PND, orthopnea, no dizziness, loss of consciousness. No stroke -like symptoms, no bleeding issues. REVIEW OF SYSTEMS: Rest of the 12-point review of systems is otherwise unremarkable. PAST MEDICAL HISTORY: As above. SOCIAL HISTORY: The patient denies smoking, ETOH or drug abuse. FAMILY HISTORY: Noncontributory. OBJECTIVE: VITAL SIGNS: Blood pressure 100/60, heart rate 70-80, respirations 12. The patient is afebrile. GENERAL: Alert and oriented man in no apparent distress. NECK: Supple. Jugular veins not distended. CHEST: Coarse without crackles. CARDIOVASCULAR: Heart sounds are regular to rate and rhythm. No murmur or gallop. ABDOMEN: Benign. Bowel sounds positive. EXTREMITIES: No edema, clubbing or cyanosis. Pulses are adequate. NEUROLOGIC: Patient is nonfocal. MUSCULOSKELETAL: No joint swelling or deformities. SKIN: Without rash. DATABASE: EKGs reviewed revealing sinus rhythm with a QTC of [address]-T perera ges. Other EKGs do show runs of wide complex tachycardia without P waves suggestive of true ventricu lar tachycardia which are self-terminating. ICD interrogation revealed adequate function, Medtronic dual chamber ICD. The nonsustained ventricul ar tachycardia episodes are noted, longest episode about 50 seconds noted in the monitor zone not estrella ated. Most recent effective ATP therapy was on the for faster VT. Reprogramming the device low ering the VT zone at 145 beats per minute was performed. LABORATORY DATA: White cell count is 2.5, hemoglobin 16.7, platelet count is 125. INR 1.0. Sodium 139, potassium 4.3, BUN is 18, creatinine 0.87. CK is 288, CK-MB 4.9. Troponin I is negative x3. The AST and ALT are 20 and 17. ASSESSMENT AND PLAN: Mr. Waddell is a pleasant 77-year-old man with history of structurally normal hea rt, but recurrent ventricular arrhythmias. Two prior ablations performed in [place], but despite he s till has recurrences, albeit not as rapid and more responses to ATP than before. Currently, he has frequent recurring episodes without any obvious provoking factors. Amiodarone so f ar has been effective but lidocaine seems to be controlling his rhythm better. My plan would be at this point to consider adding sotalol. We will monitor for arrhythmias. If this fails, repeat VT ablation is a viable possibility. In the meantime, reprogram the ICD to detect slo wer ventricular tachycardia episodes down to 145 beats per minute. A total of 9 ATP schemes are also programmed on to delay any shock necessary. Risks, benefits are discussed of this anti-arrhythmia agent and treatment approach will follow with erlinda bess. Thank you for allowing me to participate in the care of this patient.
[2018-02-17] MEDS: Lidocaine 2 gm/D5W 500 ml 500 ML IVPB SCH (04:45)
[2018-02-17 05:06] LABS: #Eosinphils 0.2 thou/uL (0.0-0.7); #Lymphocytes 2.2 thou/uL (1.20-3.40); #Neutrophils 6.2 thou/uL (1.40-6.50); %Basophils 0.5 % (0.0-1.0); %Eosinophils 2.5 % (0.0-10.0); %Monocytes 9.9 % (0.0-10.0); %Neutrophils 64.2 % (42.0-75.0); Hemoglobin 15.8 g/dL (14.0-18.0); Mean Corpuscular Hemoglobin 32.3 pg (27.0-31.0); Mean Platelet Volume 7.6 fL (7.4-10.4); Platelet Count 156 thou/uL (130-400); RBC Distribution Width 12.6 % (11.5-14.5); Red Blood Cell (RBC) Count 4.88 mill/uL (4.70-6.10); White Blood Cell (WBC) Count 9.7 thou/uL (4.8-10.8)
[2018-02-17 05:14] LABS: Anion Gap 12 mmol/L (10-20); BUN (Urea Nitrogen) 16 mg/dL (8.4-25.7); Calc. Creatinine Clearance 109 mL/min (70-130); Calcium 9.2 mg/dL (7.8-10.44); Carbon Dioxide 23 mmol/L (23-31); Chloride 108 mmol/L (98-107); Estimated GFR-MDRD 88; Glucose 127 mg/dL (83-110); Potassium 4.4 mmol/L (3.5-5.1); Sodium 139 mmol/L (136-145)
--- NOTE | 2018-02-17 08:19 | PRG ---
DATE OF SERVICE: 02/17/2018 Mr. Waddell is doing well, no complaints, no chest pain or pressure. PHYSICAL EXAMINATION: GENERAL: He is alert and oriented. He is on intravenous lidocaine at 2 mg per minute. He is on ora l sotalol. VITAL SIGNS: Blood pressure is 116/77, pulse is 68, it is regular. LUNGS: Clear. CARDIAC: Normal S1, normal S2. ASSESSMENT: 1. Recurrent ventricular tachycardia, stable. 2. Low white blood cell count, resolved. 3. Cystitis, urinary tract infection. 4. Previous ventricular tachycardia ablation. PLAN: 1. Stop lidocaine. 2. Continue sotalol. 3. Transfer to the telemetry area, monitor until tomorrow.
[2018-02-17] MEDS: Sotalol HCl 80 MG TAB PO SCH ×2 (08:51→22:01)
[2018-02-17] MEDS: Finasteride 5 MG TAB PO SCH (08:55)
[2018-02-17] MEDS: Aspirin 325 mg Enteric Coated Tablet PO SCH (08:55)
[2018-02-17] MEDS: Tamsulosin HCl 0.4 MG CAP PO SCH ×2 (08:56→22:01)
[2018-02-17] MEDS: Gabapentin 300 MG CAP PO SCH ×2 (08:56→22:00)
[2018-02-17] MEDS: Nitrofurantoin Monohyd/M-Cryst 100 MG CAP PO SCH ×2 (08:59→22:00)
--- NOTE | 2018-02-17 15:18 | PDOC.PN ---
- Subjective Encounter Start Date: 02/17/18 Encounter Start Time: 11:00 Pt seen for followup re: ventricular tachycardia. Denies chest pain, shortness of breath, fevers or chills. - Objective Resuscitation Status: Resuscitation Status FULL:Full Resuscitation MAR Reviewed: Yes Vital Signs & Weight: Vital Signs (12 hours) Temp Pulse Resp BP BP Pulse Ox 02/17/18 12:26 97.7 F 71 18 119/83 98 02/17/18 12:05 98 02/17/18 08:51 74 101/67 02/17/18 08:00 96.9 F L 02/17/18 07:24 97 02/17/18 06:51 94 L 02/17/18 04:00 97.7 F Weight Weight 233 lb 14.4 oz Most Recent Monitor Data Heart Rate from ECG 70 NIBP 111/72 NIBP BP-Mean 79 Respiration from ECG 20 SpO2 96 I&O: 02/16/18 02/17/18 02/18/18 06:59 06:59 06:59 Intake Total 591 420 Output Total 950 530 Balance -359 -110 Result Diagrams: 02/18/18 04:24 02/18/18 04:24 EKG Reviewed by me: Yes (Tele: NSR) Phys Exam - Physical Examination Constitutional: NAD HEENT: moist MMs Neck: supple Respiratory: clear to auscultation bilateral Cardiovascular: RRR Gastrointestinal: soft Neurological: moves all 4 limbs Psychiatric: normal affect Dx/Plan (1) Ventricular tachycardia Code(s): I47.2 - VENTRICULAR TACHYCARDIA Status: Acute Comment: now on sotalol, lidocaine drip discontinued (2) UTI (urinary tract infection) Status: Acute Comment: continue nitrofurantoin (3) Hypertension Code(s): I10 - ESSENTIAL (PRIMARY) HYPERTENSION Status: Chronic Qualifiers: Hypertension type: essential hypertension Qualified Code(s): I10 - Essential (primary) hypertension Comment: controlled (4) Lymphocytosis Code(s): D72.820 - LYMPHOCYTOSIS (SYMPTOMATIC) Status: Resolved Comment: resolved, etiology unclear - Plan * . Review of Systems - Review of Systems Respiratory: negative: Cough, Shortness of Breath, SOB with Excertion, Pleuritic Pain, Wheezing Cardiovascular: negative: chest pain, palpitations, orthopnea, paroxysmal nocturnal dyspnea, edema, light headedness - Medications/Allergies Allergies/Adverse Reactions: Allergies Allergy/AdvReac Type Severity Reaction Status Date / Time No Known Allergies Allergy Verified 05/17/17 19:48 Medications: Current Medications Acetaminophen (Tylenol) 650 mg PO Q4H PRN PRN Reason: Headache/Fever or Pain Acetaminophen (Tylenol) [address] Q4H PRN PRN Reason: Headache/Fever or Pain Aspirin (Ecotrin) 325 mg PO DAILY [facility] Last Admin: 02/17/18 08:55 Dose: 325 mg Atorvastatin Calcium (Lipitor) 10 mg PO HS [facility] Last Admin: 02/16/18 21:07 Dose: 10 mg Bisacodyl (Dulcolax) 10 mg PO DAILYPRN PRN PRN Reason: Constipation Finasteride (Proscar) 5 mg PO DAILY [facility] Last Admin: 02/17/18 08:55 Dose: 5 mg Gabapentin (Neurontin) 300 mg PO BID [facility] Last Admin: 02/17/18 08:56 Dose: 300 mg Nitrofurantoin Macrocrystals (Macrobid) 100 mg PO BID [facility] Last Admin: 02/17/18 08:59 Dose: 100 mg Sotalol HCl (Betapace) 120 mg PO BID [facility] Last Admin: 02/17/18 08:51 Dose: 120 mg Tamsulosin HCl (Flomax) 0.4 mg PO BID [facility] Last Admin: 02/17/18 08:56 Dose: 0.4 mg
--- NOTE | 2018-02-17 16:04 | PDOC.CTH ---
<Linda Dove - Last Filed: 02/17/18 15:59> Cardiology Progress Note - Subjective EP progress note: Patient seen and evaluated. No new cardiac concerns or complaints. No palpitations or heart racing. No dizziness or passing out. - Objective Vital Signs Temp Pulse Resp BP BP Pulse Ox 02/17/18 12:26 97.7 F 71 18 119/83 98 02/17/18 12:05 98 02/17/18 08:51 74 101/67 02/17/18 08:00 96.9 F L 02/17/18 07:24 97 02/17/18 06:51 94 L 02/17/18 04:00 97.7 F Weight 233 lb 14.4 oz 02/16/18 02/17/18 02/18/18 06:59 06:59 06:59 Intake Total 591 420 Output Total 950 530 Balance -359 -110 - Physical Examination General/Neuro: alert & oriented x3, NAD Neck: carotid US brisk, no JVD present Lungs: CTA, unlabored respirations Heart: PMI normal, RRR Abdomen: NT/ND, soft - Telemetry Telemetry Rhythm: SR - Labs Result Diagrams: 02/17/18 04:33 02/17/18 04:33 Troponin/CKMB CK-MB (CK-2) 4.9 ng/mL (0-6.6) 02/16/18 07:52 Troponin I Less than 0.010 ng/mL (< 0.028) 02/16/18 14:08 - Assessment/Plan 1. Recurrent ventricular tachyarrhythmias -s/p PVC and VT ablation in 05/2017 and 08/2017. Now with recently increaseing burden of NSVT initially asymptomatic but now having dizziness and heart racing prompting ER visit. No obvious provoking factors. Started on Sotalol 120mg BID. QTc is stable, essentially unchanged from baseline. Continue sotalol loading. Avoid other beta chuck therapy. Will consider redo VT ablation if AAD fails. 2. Dual chamber ICD, medtronic: Adjusted VT detect to 145bpm and 9 ATP sequences. Normal operation otherwise. Continue to monitor with tele and 12 lead EKG 2 hours after every dose of Sotalol. <Abraham Howell - Last Filed: 02/17/18 17:36> Cardiology Progress Note - Objective Vital Signs Temp Pulse Resp BP BP Pulse Ox 02/17/18 16:25 98.5 F 68 18 114/67 93 L 02/17/18 12:26 97.7 F 71 18 119/83 98 02/17/18 12:05 98 02/17/18 08:51 74 101/67 02/17/18 08:00 96.9 F L 02/17/18 07:24 97 02/17/18 06:51 94 L Weight 233 lb 14.4 oz 02/16/18 02/17/18 02/18/18 06:59 06:59 06:59 Intake Total 591 420 Output Total 950 530 Balance -359 -110 - Labs Result Diagrams: 02/17/18 04:33 02/17/18 04:33 Troponin/CKMB CK-MB (CK-2) 4.9 ng/mL (0-6.6) 02/16/18 07:52 Troponin I Less than 0.010 ng/mL (< 0.028) 02/16/18 14:08 Attending Addendum - Attending Addendum Date/Time: 02/17/18 [id number] I personally evaluated the patient and discussed the management with Ms Bridges. I agree with the History, Examination, Assessment and Plan documented above with any addition or exceptions noted below.
[2018-02-17] MEDS: Atorvastatin Calcium 10 MG TAB PO SCH (22:00)
[2018-02-18 05:27] LABS: Anion Gap 11 mmol/L (10-20); BUN (Urea Nitrogen) 13 mg/dL (8.4-25.7); Calc. Creatinine Clearance 122 mL/min (70-130); Calcium 8.9 mg/dL (7.8-10.44); Carbon Dioxide 25 mmol/L (23-31); Chloride 107 mmol/L (98-107); Estimated GFR-MDRD Greater than 90; Glucose 117 mg/dL (83-110); Potassium 3.9 mmol/L (3.5-5.1); Sodium 139 mmol/L (136-145)
[2018-02-18 05:28] LABS: #Eosinphils 0.3 thou/uL (0.0-0.7); #Lymphocytes 2.1 thou/uL (1.20-3.40); #Monocytes 0.8 thou/uL (0.11-0.59); #Neutrophils 3.7 thou/uL (1.40-6.50); %Basophils 0.7 % (0.0-1.0); %Eosinophils 3.7 % (0.0-10.0); %Lymphocytes 30.7 % (21.0-51.0); %Monocytes 11.1 % (0.0-10.0); %Neutrophils 53.8 % (42.0-75.0); Mean Corpuscular HGB CONC 33.1 g/dL (32.0-36.0); Mean Corpuscular Hemoglobin 33.1 pg (27.0-31.0); Mean Platelet Volume 7.9 fL (7.4-10.4); Platelet Count 134 thou/uL (130-400); RBC Distribution Width 12.4 % (11.5-14.5); Red Blood Cell (RBC) Count 4.53 mill/uL (4.70-6.10); White Blood Cell (WBC) Count 6.8 thou/uL (4.8-10.8)
[2018-02-18] MEDS: Aspirin 325 mg Enteric Coated Tablet PO SCH (09:24)
[2018-02-18] MEDS: Finasteride 5 MG TAB PO SCH (09:24)
[2018-02-18] MEDS: Tamsulosin HCl 0.4 MG CAP PO SCH ×2 (09:25→21:14)
[2018-02-18] MEDS: Gabapentin 300 MG CAP PO SCH ×2 (09:25→21:13)
[2018-02-18] MEDS: Nitrofurantoin Monohyd/M-Cryst 100 MG CAP PO SCH ×2 (09:25→21:13)
--- NOTE | 2018-02-18 10:02 | CON ---
PROGRESS NOTE: 02/17/2018 SUBJECTIVE: The patient came in with concerns for arrhythmia and has been admitted for further cardiac monitoring. He's done well overnight. We reviewed his normal ANETTE. OBJECTIVE: PHYSICAL EXAMINATION: GENERAL: He is alert and oriented, he appears comfortable and in no distress. LABORATORY DATA: Reveal low WBC of 9.7 and improved plt of 156. Chemistry reveals normal creatinine at 0.84. There is no urine from this stay, but I had one sent last week and he is currently to be on Macrobid for the culture that grew Staph epidermidis. ANETTE (02/16/18) reviewed personally, no hydro/stones/masses, bladder (prevoid) about 430mL ASSESSMENT/PLAN: We have a 77-year-old male admitted for cardiac reasons. He needs further workup regarding this. Cont Macrobid for urinary tract infection related to his incomplete emptying and benign prostatic hypertrophy for which he is on tamsulosin b.i.d. and finasteride. Ultimately, he will need medical and cardiac clearance for GreenLight laser vaporization of the prostate, so depending on what occurs during this stay, we will anticipate planning for this. LENNY
--- NOTE | 2018-02-18 10:07 | PRG ---
DATE OF SERVICE: 02/18/2018 SUBJECTIVE: Subjectively the patient is sitting in the chair without any distress or concerns. He has done well overnight. He actually was able to put out almost 2 liters overnight and he reports that it is a slow stream, but he is feeling adequately empty and not having to strain. He was bladder scanned yesterday for a little over 300 and was not straight cathed; however, the patient felt like possibly the bladder scan was inaccurate. We reviewed how since he is clearly emptying a significant amount that I am not too concerned that he has retention requiring catheterization at this time, but certainly this will need to be monitored if there are any concerns. Vital signs have been stable with a relatively low blood pressure, 108/62. He had 2300 out over the last 24 hours. He is sitting comfortably in the chair and no specific physical exam was taken. LABORATORY VALUES: Reveal creatinine is 0.76, and a CBC that is normal with the platelets back down to 134 today. A/P We reviewed how depending on this hospital stay, he still ultimately needs GreenLight laser vaporization of the prostate and getting approval to hold his aspirin at least 5 days is what I would ask Cardiology depending on what is required for this hospital stay and in the near future. If the patient has any concerns about not emptying or is unable to void, then a bladder scan should be performed per the patient's request and if it is greater than 300, I would straight cath him to empty. For now I would continue all his medications as prescribed and keep his follow up as an outpatient. LENNY
--- NOTE | 2018-02-18 11:14 | PRG ---
DATE OF SERVICE: 02/18/2018 SUBJECTIVE: Mr. Waddell is resting comfortably, doing well. He did have 2 episodes of nonsustained V- tach this morning, they are monomorphic, one 7 beats, one 9 beats. There is no sustained V-tach. OBJECTIVE: VITAL SIGNS: Blood pressure was 93/62, pulse 75. LUNGS: Clear. CARDIAC: Normal S1, normal S2. ABDOMEN: Soft, nontender. EXTREMITIES: There is no edema. ASSESSMENT: 1. Recurrent ventricular tachycardia. 2. Previous ablations. 3. Relatively low blood pressure. PLAN: 1. He is on sotalol. So far, this is suppressing the sustained ventricular tachycardia. 2. He is on tamsulosin. It is probably contributing to the hypotension. 3. We will do an EKG tomorrow, then release home. Do an outpatient PET scan. He does have a histor y of catheterization showing only minimal nonobstructive coronary artery disease several years ago. He is doing well and the ventricular tachycardia is stable. In a couple of weeks, he could probably go ahead and proceed with the prostate surgery.
[2018-02-18] MEDS: Sotalol HCl 80 MG TAB PO SCH ×2 (11:17→21:14)
--- NOTE | 2018-02-18 17:11 | PDOC.CTH ---
<Linda Dove - Last Filed: 02/18/18 17:09> Cardiology Progress Note - Subjective EP progress note: Patient seen and evaluated. No new cardiac concerns or complaints today. Denies chest pain/pressure, dizziness, or passing out. No stroke like symptoms. + for occasional heart racing and palpitations last night around 10pm - Objective Vital Signs Temp Pulse Resp BP BP BP Pulse Ox 02/18/18 15:23 97.8 F 76 18 121/72 95 02/18/18 11:17 72 114/70 02/18/18 11:14 97.8 F 72 18 114/70 95 02/18/18 09:22 98.1 F 75 18 93/62 95 Weight 237 lb 9.6 oz 02/17/18 02/18/18 02/19/18 06:59 06:59 06:59 Intake Total 591 1470 Output Total 950 2305 Balance -359 -835 - Physical Examination General/Neuro: alert & oriented x3, NAD Neck: carotid US brisk, no JVD present Lungs: unlabored respirations Heart: RRR Abdomen: NT/ND, soft - Telemetry Telemetry Rhythm: SR with NSVT - Labs Result Diagrams: 02/18/18 04:24 02/18/18 04:24 Troponin/CKMB CK-MB (CK-2) 4.9 ng/mL (0-6.6) 02/16/18 07:52 Troponin I Less than 0.010 ng/mL (< 0.028) 02/16/18 14:08 - Assessment/Plan . Recurrent ventricular tachyarrhythmias -s/p PVC and VT ablation in 05/2017 and 08/2017. Now with recently increasing burden of NSVT initially asymptomatic but now having dizziness and heart racing prompting ER visit. No obvious provoking factors. Started on Sotalol 120mg BID. QTc is stable, essentially unchanged from baseline. Continue sotalol loading. Avoid other beta chuck therapy. NSVT seen on tele over HS mostly between 10- 11pm. longest 17 beats. 2. Dual chamber ICD, medtronic: Adjusted VT detect to 145bpm and 9 ATP sequences. Normal operation otherwise. 3. Hypotension, borderline this AM. Will continue to monitor. If continues may need to reconsider Sotalol. Continue to monitor with tele and 12 lead EKG 2 hours after every dose of Sotalol. <Abraham Howell - Last Filed: 02/18/18 17:24> Cardiology Progress Note - Objective Vital Signs Temp Pulse Resp BP BP BP Pulse Ox 02/18/18 15:23 97.8 F 76 18 121/72 95 02/18/18 11:17 72 114/70 02/18/18 11:14 97.8 F 72 18 114/70 95 02/18/18 09:22 98.1 F 75 18 93/62 95 Weight 237 lb 9.6 oz 02/17/18 02/18/18 02/19/18 06:59 06:59 06:59 Intake Total 591 1470 Output Total 950 2305 Balance -359 -835 - Labs Result Diagrams: 02/18/18 04:24 02/18/18 04:24 Troponin/CKMB CK-MB (CK-2) 4.9 ng/mL (0-6.6) 02/16/18 07:52 Troponin I Less than 0.010 ng/mL (< 0.028) 02/16/18 14:08 Attending Addendum - Attending Addendum Date/Time: 02/18/18 1771 I personally evaluated the patient and discussed the management with Ms Dove. I agree with the History, Examination, Assessment and Plan documented above with any addition or exceptions noted below.
--- NOTE | 2018-02-18 18:32 | PDOC.PN ---
- Subjective Encounter Start Date: 02/18/18 Encounter Start Time: 08:00 Pt seen for followup re: ventricular tachycardia. No complaints today. - Objective Resuscitation Status: Resuscitation Status FULL:Full Resuscitation MAR Reviewed: Yes Vital Signs & Weight: Vital Signs (12 hours) Temp Pulse Resp BP BP BP Pulse Ox 02/18/18 15:23 97.8 F 76 18 121/72 95 02/18/18 11:17 72 114/70 02/18/18 11:14 97.8 F 72 18 114/70 95 02/18/18 09:22 98.1 F 75 18 93/62 95 Weight Weight 237 lb 9.6 oz Most Recent Monitor Data Heart Rate from ECG 70 NIBP 111/72 NIBP BP-Mean 79 Respiration from ECG 20 SpO2 96 I&O: 02/17/18 02/18/18 02/19/18 06:59 06:59 06:59 Intake Total 591 1470 Output Total 950 2305 Balance -359 -835 Result Diagrams: 02/18/18 04:24 02/18/18 04:24 EKG Reviewed by me: Yes (Tele: NSR) Phys Exam - Physical Examination Constitutional: NAD HEENT: moist MMs Neck: supple Respiratory: clear to auscultation bilateral Cardiovascular: RRR Gastrointestinal: soft Neurological: moves all 4 limbs Psychiatric: normal affect Dx/Plan (1) Ventricular tachycardia Code(s): I47.2 - VENTRICULAR TACHYCARDIA Status: Acute Comment: continue sotalol, monitor on telemetry (2) UTI (urinary tract infection) Status: Acute Comment: on nitrofurantoin (3) Hypertension Code(s): I10 - ESSENTIAL (PRIMARY) HYPERTENSION Status: Chronic Qualifiers: Hypertension type: essential hypertension Qualified Code(s): I10 - Essential (primary) hypertension Comment: controlled (4) Lymphocytosis Code(s): D72.820 - LYMPHOCYTOSIS (SYMPTOMATIC) Status: Resolved Comment: resolved, etiology unclear - Plan * . Review of Systems - Review of Systems Respiratory: negative: Cough, Shortness of Breath, SOB with Excertion, Wheezing Cardiovascular: negative: chest pain, palpitations, orthopnea, edema, light headedness - Medications/Allergies Allergies/Adverse Reactions: Allergies Allergy/AdvReac Type Severity Reaction Status Date / Time No Known Allergies Allergy Verified 05/17/17 19:48 Medications: Current Medications Acetaminophen (Tylenol) 650 mg PO Q4H PRN PRN Reason: Headache/Fever or Pain Acetaminophen (Tylenol) 650 mg [place] Q4H PRN PRN Reason: Headache/Fever or Pain Aspirin (Ecotrin) 325 mg PO DAILY [facility] Last Admin: 02/18/18 09:24 Dose: 325 mg Atorvastatin Calcium (Lipitor) 10 mg PO HS [facility] Last Admin: 02/17/18 22:00 Dose: 10 mg Bisacodyl (Dulcolax) 10 mg PO DAILYPRN PRN PRN Reason: Constipation Finasteride (Proscar) 5 mg PO DAILY [facility] Last Admin: 02/18/18 09:24 Dose: 5 mg Gabapentin (Neurontin) 300 mg PO BID [facility] Last Admin: 02/18/18 09:25 Dose: 300 mg Nitrofurantoin Macrocrystals (Macrobid) 100 mg PO BID [facility] Last Admin: 02/18/18 09:25 Dose: 100 mg Sotalol HCl (Betapace) 120 mg PO BID [facility] Last Admin: 02/18/18 11:17 Dose: 120 mg Tamsulosin HCl (Flomax) 0.4 mg PO BID [facility] Last Admin: 02/18/18 09:25 Dose: 0.4 mg
[2018-02-18] MEDS: Atorvastatin Calcium 10 MG TAB PO SCH (21:13)
[2018-02-19 05:41] LABS: #Eosinphils 0.2 thou/uL (0.0-0.7); #Lymphocytes 2.1 thou/uL (1.20-3.40); #Monocytes 0.9 thou/uL (0.11-0.59); #Neutrophils 4.6 thou/uL (1.40-6.50); %Basophils 0.6 % (0.0-1.0); %Eosinophils 3.1 % (0.0-10.0); %Lymphocytes 26.1 % (21.0-51.0); %Monocytes 11.3 % (0.0-10.0); %Neutrophils 58.8 % (42.0-75.0); Mean Corpuscular HGB CONC 33.8 g/dL (32.0-36.0); Mean Corpuscular Hemoglobin 33.8 pg (27.0-31.0); Mean Platelet Volume 7.5 fL (7.4-10.4); Platelet Count 133 thou/uL (130-400); RBC Distribution Width 12.4 % (11.5-14.5); Red Blood Cell (RBC) Count 4.42 mill/uL (4.70-6.10); White Blood Cell (WBC) Count 7.9 thou/uL (4.8-10.8)
[2018-02-19 05:44] LABS: Anion Gap 9 mmol/L (10-20); BUN (Urea Nitrogen) 15 mg/dL (8.4-25.7); Calc. Creatinine Clearance 108 mL/min (70-130); Calcium 9.1 mg/dL (7.8-10.44); Carbon Dioxide 28 mmol/L (23-31); Chloride 106 mmol/L (98-107); Estimated GFR-MDRD 86; Glucose 116 mg/dL (83-110); Sodium 139 mmol/L (136-145)
[2018-02-19] MEDS: Sotalol HCl 80 MG TAB PO SCH (08:53)
[2018-02-19] MEDS: Finasteride 5 MG TAB PO SCH (08:55)
[2018-02-19] MEDS: Tamsulosin HCl 0.4 MG CAP PO SCH (08:55)
[2018-02-19] MEDS: Gabapentin 300 MG CAP PO SCH (08:56)
[2018-02-19] MEDS: Nitrofurantoin Monohyd/M-Cryst 100 MG CAP PO SCH (08:56)
[2018-02-19] MEDS: Aspirin 325 mg Enteric Coated Tablet PO SCH (08:56)
--- NOTE | 2018-02-19 10:03 | PRG ---
DATE OF SERVICE: 02/19/2018 HISTORY: Mr. Waddell is doing much better today. He has not had any sustained ventricular tachycardia . EKG shows QT intervals are within normal limits. He is awake and alert. PHYSICAL EXAMINATION: VITAL SIGNS: Blood pressure 107/63, pulse 70. LUNGS: Clear. CARDIAC: Normal S1, normal S2. ABDOMEN: Soft, nontender. EXTREMITIES: There is no edema. Potassium is 4.0, magnesium during this hospitalization was normal. ASSESSMENT: 1. Recurrent ventricular tachycardia sustained. 2. Previous defibrillator implantations. 3. Previous ventricular tachycardia ablations. 4. Orthostatic hypotension. 5. Prostatism. 6. Will need intervention of the prostate (GreenLight) therapy. PLAN: 1. He will have outpatient stress testing. 2. He will go home on sotalol 120 mg twice a day. 3. Continue the Flomax for now, ultimately try to reduce dose. This is probably responsible for carol e of the orthostasis, but he needs it now to void. 4. Okay to stop aspirin for urologic testing. 5. If the V-tach is stable within 2 weeks he will be cleared to proceed with the urologic procedure.
[2018-02-19 10:29] VITALS: BP 106/67; TEMP 98.2
--- NOTE | 2018-02-19 11:04 | PDOC.CTH ---
<Linda Dove - Last Filed: 02/19/18 14:11> Cardiology Progress Note - Subjective EP progress note: Patient seen and evaluated. No new cardiac concerns or complaints today. Denies heart racing, palpitations, chest pain/pressure, dizziness, or passing out. No stroke like symptoms. - Objective Vital Signs Temp Pulse Resp BP BP Pulse Ox 02/19/18 08:53 66 02/19/18 08:15 98.2 F 66 16 106/67 94 L 02/19/18 04:00 97.8 F 71 20 107/63 95 Weight 237 lb 02/18/18 02/19/18 02/20/18 06:59 06:59 06:59 Intake Total 1470 1040 Output Total 2305 1950 Balance -835 -910 - Physical Examination General/Neuro: alert & oriented x3, NAD Neck: carotid US brisk, no JVD present Lungs: CTA, unlabored respirations Heart: PMI normal, RRR Abdomen: NT/ND, soft - Telemetry Telemetry Rhythm: SR with occasional PVCs - Labs Result Diagrams: 02/19/18 05:15 02/19/18 05:15 Troponin/CKMB CK-MB (CK-2) 4.9 ng/mL (0-6.6) 02/16/18 07:52 Troponin I Less than 0.010 ng/mL (< 0.028) 02/16/18 14:08 - Assessment/Plan 1. Recurrent ventricular tachyarrhythmias -s/p PVC and VT ablation in 05/2017 and 08/2017. Now with recently increasing burden of NSVT initially asymptomatic but now having dizziness and heart racing prompting ER visit. No obvious provoking factors. Started on Sotalol 120mg BID. QTc is stable at ~450 msec, essentially unchanged from baseline. Continue sotalol loading. Avoid other beta chuck therapy. No NSVT or VT seen in past 24 hours on tele. 2. Dual chamber ICD, medtronic: Adjusted VT detect to 145bpm and 9 ATP sequences. Normal operation otherwise. 3. Hypotension, stable over past 24 hours, no further hypotension which was only slightly low to begin with. OK to DC home on Sotalol 120mg po BID. TCA follow up in 4-6 weeks will be arranged. <Abraham Howell - Last Filed: 02/19/18 16:48> Cardiology Progress Note - Objective Vital Signs Temp Pulse Resp BP Pulse Ox 02/19/18 08:53 66 02/19/18 08:15 98.2 F 66 16 106/67 94 L Weight 237 lb 02/18/18 02/19/18 02/20/18 06:59 06:59 06:59 Intake Total 1470 1040 Output Total 2305 1950 Balance -835 -910 - Labs Result Diagrams: 02/19/18 05:15 02/19/18 05:15 Troponin/CKMB CK-MB (CK-2) 4.9 ng/mL (0-6.6) 02/16/18 07:52 Troponin I Less than 0.010 ng/mL (< 0.028) 02/16/18 14:08 Attending Addendum - Attending Addendum Date/Time: 02/19/18 1883 I personally evaluated the patient and discussed the management with Petty. I agree with the History, Examination, Assessment and Plan documented above with any addition or exceptions noted below.
--- NOTE | 2018-02-19 13:41 | DIS ---
PRIMARY CARE PHYSICIAN: Dr. Luke Hung DATE OF ADMISSION: 02/16/2018 DATE OF DISCHARGE 02/19/2018 DISCHARGE DIAGNOSES: 1. Ventricular tachycardia. 2. Urinary tract infection. CONDITION OF PATIENT ON THE DAY OF DISCHARGE: Stable. I assessed Mr. Waddell on the day of discharge. He denies any chest pain or shortness of breath. Vital signs are stable. S1 and S2 are heard, reg ular. Lungs are clear to auscultation bilaterally. DISCHARGE MEDICATIONS: Betamethasone/propylene glycol ointment p.r.n., finasteride 5 mg daily, gabap entin 300 mg 2 times a day, pravastatin 40 mg at bedtime, tamsulosin 0.4 mg 2 times a day, aspirin 81 mg daily, Macrobid 100 mg 2 times a day as prescribed by Urology Service and sotalol 120 mg 2 times a day. CONSULTATIONS DURING THIS HOSPITALIZATION: Cardiology, Dr. Tata Zapata; Electrophysiology, Dr. Paul Howell; and Urology, Dr. Allie Dickinson and Pulmonology, Dr. Rayo Mace. HOSPITAL COURSE: Mr. Waddell is a pleasant 77-year-old gentleman who was admitted to [facility] Unit on 02/16/2018 for runs of ventricular tachycardia. He was initia lly treated with amiodarone drip, subsequently with lidocaine. He was then started on sotalol. He h ad a renal ultrasound, which did not show any focal lesion or hydronephrosis. He was continued on Ma crobid for a recently diagnosed with urinary tract infection with Staphylococcus epidermidis. He was subsequently transferred to the telemetry floor where he was monitored while being treated wit h sotalol. He continued to improve clinically. He is being discharged home in stable condition. Many thanks for allowing me to participate in your patient's care. Please feel free to contact me wi th any questions or concerns. On the day of discharge, his white count 7900, hemoglobin 15, platelet count 133,000, normal sodium, normal potassium, and normal creatinine. DISCHARGE DISPOSITION: Home. TOTAL AMOUNT OF TIME SPENT COORDINATING THIS DISCHARGE: 32 minutes.
[2018-02-20] MEDS ORDERED: Aspirin 81 mg Enteric Coated Tablet PO SCH (09:00)
== END 2018-02-19 12:57 | disposition home or self-care (01) | DRG 309 ==
LOC: ERS 07:47 → CCU 09:29 → 2NO 02-17 12:15
PROVIDERS: ADMIT Internal Medicine; ATTEND Internal Medicine
DX: I49.01 Ventricular fibrillation (principal); N39.0 Urinary tract infection, site not specified; E78.5 Hyperlipidemia, unspecified; M54.9 Dorsalgia, unspecified; G89.29 Other chronic pain; D72.819 Decreased white blood cell count, unspecified; I95.9 Hypotension, unspecified; N40.0 Benign prostatic hyperplasia without lower urinary tract symptoms; D72.820 Lymphocytosis (symptomatic); Z95.810 Presence of automatic (implantable) cardiac defibrillator
CPT/HCPCS: 36415; 36416; 71045; 76770; 80048; 80053; 82553; 83690; 83735; 84100; 84484; 85025; 85610; 85730; 90471; 90662; 93005; 93010; 93306; 96374; G0008; J0282; J2001; J7070

== ENCOUNTER 2018-03-16 12:00 | Outpatient (CLI) | payer MEDICARE, BC | END 2018-03-16 12:01 | disposition home or self-care (01) | LOC: LABBT 12:00 | PROVIDERS: ATTEND Urology | DX: Z01.812 Encounter for preprocedural laboratory examination (principal); N40.1 Benign prostatic hyperplasia with lower urinary tract symptoms; R35.1 Nocturia; R39.11 Hesitancy of micturition; R39.12 Poor urinary stream; N39.0 Urinary tract infection, site not specified | CPT/HCPCS: 80048; 81001; 85027; 87086 ==

== ENCOUNTER 2018-03-17 09:53 | Outpatient (CLI) | payer MEDICARE, BC ==
[2018-03-17 10:14] LABS: Hemoglobin 15.7 g/dL (14.0-18.0); Mean Corpuscular HGB CONC 33.6 g/dL (32.0-36.0); Mean Corpuscular Hemoglobin 33.4 pg (27.0-31.0); Mean Corpuscular Volume 99.4 fL (78.0-98.0); Platelet Count 162 thou/uL (130-400); RBC Distribution Width 12.4 % (11.5-14.5); White Blood Cell (WBC) Count 8.3 thou/uL (4.8-10.8)
[2018-03-17 10:34] LABS: Anion Gap 10 mmol/L (10-20); BUN (Urea Nitrogen) 17 mg/dL (8.4-25.7); Calc. Creatinine Clearance 0 mL/min (70-130); Calcium 9.2 mg/dL (7.8-10.44); Carbon Dioxide 27 mmol/L (23-31); Chloride 108 mmol/L (98-107); Estimated GFR-MDRD 86; Glucose 105 mg/dL (83-110); Potassium 4.2 mmol/L (3.5-5.1); Sodium 141 mmol/L (136-145)
== END 2018-03-17 09:54 | disposition home or self-care (01) ==
LOC: LABBT 09:53
PROVIDERS: ATTEND Urology
DX: Z01.812 Encounter for preprocedural laboratory examination (principal); N40.1 Benign prostatic hyperplasia with lower urinary tract symptoms; R35.1 Nocturia; R39.11 Hesitancy of micturition; R39.12 Poor urinary stream; N39.0 Urinary tract infection, site not specified
CPT/HCPCS: 80048; 85027

== ENCOUNTER 2018-03-24 07:39 | Day surgery (SDC) | payer MEDICARE, BC ==
[2018-03-16 12:13] VITALS: BMI 28.7
[2018-03-24] MEDS ORDERED: cefTRIAXone\\ROCEPHIN 1 GM VIAL ONE (08:22)
[2018-03-24] MEDS ORDERED: Dexamethasone 4 mg/ml Vial ONE (08:22)
[2018-03-24] MEDS ORDERED: Sodium Chloride 0.9% 100 ML ONE (08:22)
[2018-03-24] MEDS ORDERED: B & O ONE (11:40)
[2018-03-24] MEDS ORDERED: Fentanyl 100 MCG/2 ML VIAL ONE ×2 (11:42→14:13)
[2018-03-24] MEDS ORDERED: Famotidine/PF 20 mg/2ml Vial ONE (11:42)
[2018-03-24] MEDS ORDERED: Furosemide 20 MG/2 ML VIAL ONE (12:40)
[2018-03-24] MEDS ORDERED: PROPOFOL 200 MG/20 ML VIAL ONE (13:50)
[2018-03-24] MEDS ORDERED: Glycopyrrolate 0.2 MG/ML 5 ML SYRINGE ONE (13:50)
[2018-03-24] MEDS ORDERED: Ondansetron PF 4 MG/2 ML Vial ONE (13:50)
[2018-03-24] MEDS ORDERED: ePHEDrine/0.9% NaCl/PF SYRINGE 50 mg/10 ml ONE (13:50)
[2018-03-24] MEDS ORDERED: Lidocaine 1% PF 5 ML VIAL ONE (13:50)
--- NOTE | 2018-03-25 10:24 | OP ---
PREOPERATIVE DIAGNOSIS: Benign prostatic hypertrophy and urinary retention. POSTOPERATIVE DIAGNOSES: Benign prostatic hypertrophy and urinary retention. SURGEON: Allie Dickinson M.D. ANESTHESIA: General with ET tube. FINDINGS: Adequate opening of the prostatic urethra. [id number] used PROCEDURE: GreenLight laser vaporization of the prostate with enucleation of the middle lobe. DRAINS: Drain remaining was a 20-Emirati 2-way. BLOOD LOSS: Minimal. COMPLICATIONS: None. INDICATIONS: Patient is a 77-year-old male who is followed in the office for BPH and set up for an elective surgery for his BPH. After he was already on maximum therapy 3 days before the procedure, he went into retention and required a catheter. This was placed, and he still had it for the procedure. The patient was brought to the room by Anesthesia, laid on table in supine position. After the catheter was removed, his perineum was prepped and draped in sterile fashion. Using a 22.5 Emirati cystoscope and 30-degree lens, urethra was traversed and the bladder inspected. Ureteral orifices were identified and preserved throughout the case. Middle lobe was taken down as well as the trigonal ridge that was elevated and this was taken all the way down to the floor of the bladder. It did allow such that the ureteral orifices were somewhat elevated, but these were still preserved at power level 80. The lateral bladder neck was taken down and power level 80 was used for enucleating the middle lobe at the proximal portion and power level of 80 used to enucleate all the way down to the veru, where power level of 80 was again used nearing this area. All the chips were evacuated. Then, the bladder was filled and the scope removed, a good stream was noted. Scope was put back in and bladder decompressed. Hemostasis was achieved. Power level of 60 was used near the bladder neck to further contour this area and opened up the lateral edges. At this point, the scope was removed final time, and a 20-Emirati catheter was placed to gravity. The patient tolerated procedure well. He was then awakened and transferred back in stable condition. [facility]ITAL[facility]
== END 2018-03-24 16:06 | disposition home or self-care (01) ==
LOC: SDC 07:39
PROVIDERS: ATTEND Urology
PROC: 0V508ZZ Destruction of Prostate, Via Natural or Artificial Opening Endoscopic (ICD-10-PCS; principal; 2018-03-24)
DX: N40.1 Benign prostatic hyperplasia with lower urinary tract symptoms (principal); R33.8 Other retention of urine; R39.11 Hesitancy of micturition; R35.1 Nocturia; R39.12 Poor urinary stream; I10 Essential (primary) hypertension; E78.00 Pure hypercholesterolemia, unspecified; R73.03 Prediabetes; Z87.891 Personal history of nicotine dependence; Z79.82 Long term (current) use of aspirin; Z79.899 Other long term (current) drug therapy; Z95.810 Presence of automatic (implantable) cardiac defibrillator
CPT/HCPCS: 88305; 96374; J0131; J0696; J1100; J1940; J3010; J7050; S0028

== ENCOUNTER 2018-09-08 07:36 | Day surgery (SDC) | payer MEDICARE, BC ==
[2018-09-07 13:21] VITALS: BMI 28.5
[2018-09-08] MEDS ORDERED: ISOVUE-370 76%-LOCM 1 ML ONE (10:29)
[2018-09-08] MEDS ORDERED: Iopamidol 370 76% 50 ML VIAL FS ONE (10:29)
[2018-09-08 13:14] LABS: Calc. Creatinine Clearance 113 mL/min (70-130); Estimated GFR-MDRD Greater than 90
--- NOTE | 2018-09-08 13:25 | OP ---
DATE OF PROCEDURE: 09/08/2018 PROCEDURES PERFORMED: Colonoscopy with biopsy and snare polypectomy, and submucosal injection. PREOPERATIVE DIAGNOSIS: Altered bowel habits. DESCRIPTION OF PROCEDURE: Informed consent was obtained from the patient. He was sedated with total intravenous anesthesia. The rectal exam was performed and was normal. The colonoscope was advanced to the cecum, where the ileocecal valve and appendiceal orifice were clearly identified. The preparation quality was excellent. A 3 mm polyp was removed from the hepatic flexure by cold biopsy forceps. There were 2 polyps in the proximal transverse colon measuring 6 mm and 7 mm, which were removed by snare cautery polypectomy. A 2.5 cm mass was found in the mid to distal transverse colon. This was biopsied and tattooed, was placed on the proximal and distal side of the mass. A 6 mm polyp was removed from the descending colon by snare cautery polypectomy. Two rectal polyps measuring 5 mm were identified. One was removed with snare cautery polypectomy and 1 was removed with cold snare polypectomy. Retroflexed views in the rectum revealed small internal hemorrhoids. IMPRESSION: 1. A 3 mm hepatic flexure polyp. 2. Two proximal transverse colon polyps. 3. Mid to distal transverse colon mass measuring 2.5 to 3 cm. This was biopsied and marked with tattoo. This has a malignant appearance. 4. A 6 mm descending polyp removed. 5. Two rectal polyps. RECOMMENDATIONS: 1. Await histopathology. 2. Check CEA level and CT scan of the abdomen and pelvis. 3. Follow up in GI clinic and we will plan for surgical referral. Job ID: [id number]
[2018-09-08] MEDS ORDERED: Lidocaine 1% PF 5 ML VIAL ONE (13:59)
[2018-09-08] MEDS ORDERED: PROPOFOL 200 MG/20 ML VIAL ONE (13:59)
--- NOTE | 2018-09-08 15:40 | CT ---
CT ABDOMEN AND PELVIS WITH ORAL AND IV CONTRAST: HISTORY: Status post colonoscopy. Colon polyp. FINDINGS: The lung bases are unremarkable. The liver, spleen, pancreas, adrenal glands, and right kidney are n ormal. A splenule/accessory splenule is seen in the left upper quadrant, superiorly. Tiny low densi ty lesions in the left kidney are likely cysts. No calcified gallstones are seen. No free air, free fluid, or lymphadenopathy is seen in the abdomen or pelvis. There are vascular kate cifications without evidence of aneurysmal dilatation of the abdominal aorta. There are degenerative changes in the spine. The small bowel loops are not abnormally dilated. There is sigmoid diverticu losis without diverticulitis. There is suggestion of a mass in the distal transverse colon. IMPRESSION: 1. Sigmoid diverticulosis. 2. Probable mass in the distal transverse colon. POS: TPC
== END 2018-09-08 15:01 | disposition home or self-care (01) ==
LOC: SDC 07:36
PROVIDERS: ATTEND Internal Medicine Gastroenterology
PROC: 0DBE8ZZ Excision of Large Intestine, Via Natural or Artificial Opening Endoscopic (ICD-10-PCS; principal; 2018-09-08)
PROC: 0DBL8ZX Excision of Transverse Colon, Via Natural or Artificial Opening Endoscopic, Diagnostic (ICD-10-PCS; 2018-09-08)
PROC: 3E0H8GC Introduction of Other Therapeutic Substance into Lower GI, Via Natural or Artificial Opening Endoscopic (ICD-10-PCS; 2018-09-08)
DX: R19.4 Change in bowel habit (principal); C18.4 Malignant neoplasm of transverse colon; D12.3 Benign neoplasm of transverse colon; D12.4 Benign neoplasm of descending colon; K63.5 Polyp of colon; K64.8 Other hemorrhoids; Z79.82 Long term (current) use of aspirin; Z79.899 Other long term (current) drug therapy
CPT/HCPCS: 36415; 74177; 82378; 82565; 88305; J2001; J2704; Q9966; Q9967

== ENCOUNTER 2018-09-23 11:33 | Outpatient (CLI) | payer MEDICARE, BC ==
[2018-09-23 13:00] LABS: #Basophils 0.1 thou/uL (0.0-0.2); #Eosinphils 0.3 thou/uL (0.0-0.7); #Lymphocytes 2.7 thou/uL (1.20-3.40); #Neutrophils 5.5 thou/uL (1.40-6.50); %Basophils 0.6 % (0.0-1.0); %Lymphocytes 28.6 % (21.0-51.0); %Monocytes 9.9 % (0.0-10.0); %Neutrophils 57.9 % (42.0-75.0); Hemoglobin 16.2 g/dL (14.0-18.0); Mean Corpuscular HGB CONC 33.8 g/dL (32.0-36.0); Mean Corpuscular Hemoglobin 33.9 pg (27.0-31.0); Mean Platelet Volume 7.6 fL (7.4-10.4); Platelet Count 163 thou/uL (130-400); RBC Distribution Width 13.1 % (11.5-14.5); Red Blood Cell (RBC) Count 4.79 mill/uL (4.70-6.10); White Blood Cell (WBC) Count 9.5 thou/uL (4.8-10.8)
[2018-09-23 13:18] LABS: Anion Gap 12 mmol/L (10-20); BUN (Urea Nitrogen) 16 mg/dL (8.4-25.7); Calc. Creatinine Clearance 0 mL/min (70-130); Calcium 9.5 mg/dL (7.8-10.44); Carbon Dioxide 28 mmol/L (23-31); Chloride 103 mmol/L (98-107); Estimated GFR-MDRD 88; Glucose 111 mg/dL (83-110); Potassium 4.1 mmol/L (3.5-5.1); Sodium 139 mmol/L (136-145)
[2018-09-23 13:20] LABS: Hemoglobin A1c 6.3 % (4.0-6.0)
== END 2018-09-23 11:34 | disposition home or self-care (01) ==
LOC: LABBT 11:33
PROVIDERS: ATTEND Surgery
DX: Z01.818 Encounter for other preprocedural examination (principal); C18.9 Malignant neoplasm of colon, unspecified
CPT/HCPCS: 80048; 83036; 85025; 93005; 93010

== ENCOUNTER 2018-09-23 12:30 | Inpatient (IN) | payer MEDICARE, BC ==
[2018-09-23 12:14] VITALS: BMI 28.5
[2018-09-29] MEDS ORDERED: Sodium Chloride 0.9% 100 ML ONE (06:14)
[2018-09-29] MEDS ORDERED: cefOXitin 2 GM VIAL ONE (06:14)
[2018-09-29] MEDS ORDERED: Fentanyl 100 MCG/2 ML VIAL ONE ×5 (06:46→10:44)
[2018-09-29] MEDS ORDERED: Fentanyl 250 MCG/5 ML VIAL ONE (06:46)
[2018-09-29] MEDS ORDERED: Famotidine/PF 20 mg/2ml Vial ONE (06:46)
[2018-09-29] MEDS ORDERED: Dexamethasone 4 mg/ml Vial ONE (07:11)
[2018-09-29] MEDS ORDERED: Lidocaine 1% (PF) 30 ML VIAL ONE (07:11)
[2018-09-29] MEDS ORDERED: Midazolam HCl 2 mg/2 ml Vial ONE (07:11)
[2018-09-29] MEDS ORDERED: Ondansetron HCl/PF 4 MG/2 ML Vial IVP PRN (09:28)
[2018-09-29] MEDS ORDERED: Promethazine HCl 25 MG/ML VIAL SLOW IVP PRN (09:28)
[2018-09-29] MEDS ORDERED: Promethazine HCl 25 MG/ML VIAL IM PRN ×2 (09:28→14:55)
[2018-09-29] MEDS ORDERED: Bupivacaine HCl 0.5%/Epinephrine 1:200,000/PF 30 ml Vial ONE (10:09)
[2018-09-29] MEDS ORDERED: Rocuronium Bromide 10 MG/ML (10ML VIAL) ONE (10:42)
[2018-09-29] MEDS ORDERED: Lidocaine 1% PF 5 ML VIAL ONE (10:42)
[2018-09-29] MEDS ORDERED: Glycopyrrolate 0.2 MG/ML 5 ML SYRINGE ONE (10:42)
[2018-09-29] MEDS ORDERED: PROPOFOL 200 MG/20 ML VIAL ONE (10:42)
[2018-09-29] MEDS ORDERED: Ketorolac Tromethamine 30 MG/ML VIAL ONE (10:42)
[2018-09-29] MEDS ORDERED: Dexamethasone 20 MG/5 ML VIAL ONE (10:42)
[2018-09-29] MEDS ORDERED: ePHEDrine 50 MG/ML VIAL ONE (10:42)
[2018-09-29] MEDS ORDERED: PHENYLEPHRINE-NS 100 MCG/ML 10 ML SYRINGE ONE (10:42)
[2018-09-29] MEDS ORDERED: Ondansetron PF 4 MG/2 ML Vial ONE (10:42)
--- NOTE | 2018-09-29 11:13 | OP ---
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 PROCEDURE PERFORMED: Extended right colectomy. ANESTHESIA: General. BLOOD LOSS: 50 mL. COMPLICATIONS: None. SPECIMEN: Opened on back table to reveal the mass to be in the specimen. DESCRIPTION OF PROCEDURE: The patient was taken to the operating room and laid supine on the operating room table. After general anesthetic was obtained, the Olivier was placed. The abdomen was shaved, prepped and draped in a sterile fashion. Left subcostal 5-mm Optiview trocar was placed in usual fashion without injury and high-flow pneumoperitoneum was obtained. An additional 5-mm port was placed below the umbilicus. The greater omentum was raised up to expose the transverse colon. There was some blue dye in the area of the distal transverse colon, but the tattooed area could not be seen secondary to being encased in fatty tissue. Midline incision was made from xiphoid to umbilicus. Bookwalter retractor was placed. The lesser sac was entered by opening the lesser omentum. The tattooed area is in the transverse colon just past midline ports towards the left. Right colon was mobilized along the white line of Toldt. Some adhesions in the right lower quadrant were taken down allowing the small intestine to come up without any tension. The hepatic flexure was mobilized in the usual fashion. Ileocolic vessels were taken near their base using Orly clamp, silk tie, TAMARA 75 stapler fired across the distal small intestine near the terminal ileum. The middle colic artery was taken near its base using the Orly clamp and silk tie as well. TAMARA 75 stapler was fired distal to the tattooed area where the known mass is. The small bowel was able to brought up against the colon in an isoperistaltic fashion. Enterotomy was made on the more proximal small intestine and on the end of the distal segment, and a [id number] anastomosis was performed. The common enterotomy was closed using 2 layers of 2-0 Vicryl. A crotch stitch was placed. The mesenteric defect was closed using silk sutures. There was no tension on the anastomosis. There was no evidence of ischemia to the anastomosis. All instrument counts, needle counts, and lap counts were correct. There was no bleeding in the abdomen. Midline fascia was closed using #1 PDS from top to bottom and tied in the middle. Subcutaneous tissues were irrigated. The skin was closed using 3-0 Vicryl, 4-0 Monocryl, and Dermabond. The left subcostal incision was closed using 4-0 Monocryl and Dermabond. The patient was sent to Recovery in stable condition. All instrument counts, needle counts, and lap counts were correct. Job ID: [id number]
[2018-09-29] MEDS ORDERED: hydrALAZINE 20 MG/ML VIAL SLOW IVP PRN (12:44)
[2018-09-29] MEDS ORDERED: Fentanyl 100 MCG/2 ML VIAL SLOW IVP PRN ×2 (12:44)
[2018-09-29] MEDS ORDERED: Ondansetron PF 4 MG/2 ML Vial IVP PRN ×2 (12:44→14:55)
[2018-09-29] MEDS ORDERED: traMADol HCl 50 MG TAB PO PRN (12:44)
[2018-09-29] MEDS: Sodium Chloride 0.9% 1,000 ML IV SCH (13:41)
[2018-09-29] MEDS: Acetaminophen 1,000 MG in Premix Bag 1 BAG IVPB SCH ×2 (13:43→18:12)
[2018-09-29] MEDS: Polyethylene Glycol OPTH DROP 15 ML BOT EA EYE SCH ×3 (14:04→19:42)
[2018-09-29] MEDS ORDERED: Naloxone HCl 0.4 mg/ml Vial IV PRN (14:55)
[2018-09-29] MEDS ORDERED: diphenhydrAMINE 25 MG CAP PO PRN (14:55)
[2018-09-29] MEDS ORDERED: diphenhydrAMINE 50 MG/ML VIAL IM/IV PRN (14:55)
[2018-09-29] MEDS ORDERED: Zolpidem Tartrate 5 MG TAB PO PRN (14:55)
[2018-09-29] MEDS: cefOXitin 2 GM in Sodium Chloride 0.9% 100 ML IVPB SCH ×2 (15:29→23:22)
[2018-09-29] MEDS: Sodium Chloride 5% Opth 15 ML BOT EA EYE SCH ×2 (15:30→19:41)
[2018-09-29] MEDS: fentaNYL Citrate/PF 2,000 MCG in Sodium Chloride 0.9% 60 ML IV PRN (15:50)
[2018-09-29] MEDS: Enoxaparin Sodium 40 MG/0.4 ML SYRINGE SC SCH (19:39)
[2018-09-29] MEDS: Sotalol HCl 80 MG TAB PO SCH (19:39)
[2018-09-29] MEDS: Famotidine 20 MG TAB PO SCH (19:39)
[2018-09-29] MEDS: Gabapentin 300 MG CAP PO SCH (19:41)
[2018-09-29] MEDS: Famotidine/PF 20 mg/2ml Vial SLOW IVP SCH (19:41)
[2018-09-30] MEDS: Sodium Chloride 0.9% 1,000 ML IV SCH (00:53)
[2018-09-30] MEDS: Acetaminophen 1,000 MG in Premix Bag 1 BAG IVPB SCH ×2 (00:53→06:02)
[2018-09-30 06:08] LABS: #Lymphocytes 1.2 thou/uL (1.20-3.40); #Monocytes 1.4 thou/uL (0.11-0.59); #Neutrophils 16.9 thou/uL (1.40-6.50); %Basophils 0.1 % (0.0-1.0); %Eosinophils 0.1 % (0.0-10.0); %Lymphocytes 6.2 % (21.0-51.0); %Monocytes 7.2 % (0.0-10.0); %Neutrophils 86.4 % (42.0-75.0); Hemoglobin 14.4 g/dL (14.0-18.0); Mean Corpuscular HGB CONC 33.4 g/dL (32.0-36.0); Mean Platelet Volume 8.4 fL (7.4-10.4); Platelet Count 139 thou/uL (130-400); RBC Distribution Width 12.8 % (11.5-14.5); Red Blood Cell (RBC) Count 4.23 mill/uL (4.70-6.10); White Blood Cell (WBC) Count 19.6 thou/uL (4.8-10.8)
[2018-09-30 06:27] LABS: Anion Gap 13 mmol/L (10-20); BUN (Urea Nitrogen) 16 mg/dL (8.4-25.7); Calc. Creatinine Clearance 106 mL/min (70-130); Calcium 8.6 mg/dL (7.8-10.44); Carbon Dioxide 23 mmol/L (23-31); Chloride 102 mmol/L (98-107); Estimated GFR-MDRD 87; Glucose 153 mg/dL (83-110); Potassium 3.9 mmol/L (3.5-5.1); Sodium 134 mmol/L (136-145)
[2018-09-30] MEDS: Sotalol HCl 80 MG TAB PO SCH ×2 (09:00→20:38)
[2018-09-30] MEDS: Famotidine/PF 20 mg/2ml Vial SLOW IVP SCH ×2 (09:01→20:39)
[2018-09-30] MEDS: Gabapentin 300 MG CAP PO SCH ×2 (09:01→20:39)
[2018-09-30] MEDS: Famotidine 20 MG TAB PO SCH ×2 (09:01→20:38)
[2018-09-30] MEDS: Polyethylene Glycol OPTH DROP 15 ML BOT EA EYE SCH ×4 (09:01→20:40)
[2018-09-30] MEDS: Sodium Chloride 5% Opth 15 ML BOT EA EYE SCH ×3 (09:02→20:39)
[2018-09-30] MEDS ORDERED: Sodium Chloride 0.9% 1,000 ML IV SCH (09:32)
--- NOTE | 2018-09-30 09:34 | PDOC.GSPN ---
Surgery Progress Note: Subj - Subjective Patient reports: pain well controlled, tolerating liquids well Surgery Progress Note: Obj - Vital signs Vital signs: Vital Signs - Most Recent Temp Pulse Resp BP Pulse Ox 97.5 F L 66 16 106/66 96 09/30/18 07:50 09/30/18 09:00 09/30/18 07:50 09/30/18 07:50 09/30/18 07:50 - Physical Exam General: no distress Cardiovascular: regular rate and rhythm Respiratory: clear to auscultation Abdomen: soft, appropriately tender Wound: healing well Surgery Progress Note: Results - Labs Result Diagrams: 09/30/18 05:29 09/30/18 05:29 Lab results: Laboratory Results - last 24 hr 09/30/18 09/30/18 05:29 05:29 WBC 19.6 H RBC 4.23 L Hgb 14.4 Hct 43.0 MCV 102.0 H MCH 34.0 H MCHC 33.4 RDW 12.8 Plt Count 139 MPV 8.4 Neutrophils % 86.4 H Lymphocytes % 6.2 L Monocytes % 7.2 Eosinophils % 0.1 Basophils % 0.1 Neutrophils # 16.9 H Lymphocytes # 1.2 Monocytes # 1.4 H Eosinophils # 0.0 Basophils # 0.0 Sodium 134 L Potassium 3.9 Chloride 102 Carbon Dioxide 23 Anion Gap 13 BUN 16 Creatinine 0.85 Estimated GFR (MDRD) 87 Glucose 153 H Calcium 8.6 Surgery Progress Note: A/P - Problem (1) Colonic mass Current Visit: Yes Code(s): K63.9 - DISEASE OF INTESTINE, UNSPECIFIED Status : Acute - Plan Plan: POD 1 -leave kinney in given hx of severe bph -start flomax -advance to full liquids
[2018-09-30] MEDS: Enoxaparin Sodium 40 MG/0.4 ML SYRINGE SC SCH (20:38)
[2018-09-30] MEDS ORDERED: Tamsulosin HCl 0.4 MG CAP PO SCH (21:00)
[2018-09-30] MEDS: fentaNYL Citrate/PF 2,000 MCG in Sodium Chloride 0.9% 60 ML IV PRN (21:37)
[2018-10-01] MEDS: Famotidine 20 MG TAB PO SCH (09:22)
[2018-10-01] MEDS: Famotidine/PF 20 mg/2ml Vial SLOW IVP SCH (09:22)
[2018-10-01] MEDS: Gabapentin 300 MG CAP PO SCH (09:22)
[2018-10-01] MEDS: Sotalol HCl 80 MG TAB PO SCH (09:22)
[2018-10-01] MEDS: Sodium Chloride 5% Opth 15 ML BOT EA EYE SCH (09:27)
[2018-10-01] MEDS: Polyethylene Glycol OPTH DROP 15 ML BOT EA EYE SCH ×2 (09:27→12:44)
[2018-10-01] MEDS ORDERED: HYDROcodone/Acetaminophen 7.5/325 mg Tablet PO PRN ×2 (10:04)
[2018-10-01 12:05] VITALS: BP 122/79; TEMP 97.9
== END 2018-10-01 14:23 | disposition home or self-care (01) | DRG 331 ==
LOC: SURG A 09-29 05:41
PROVIDERS: ADMIT Surgery; ATTEND Surgery
PROC: 0DTF0ZZ Resection of Right Large Intestine, Open Approach (ICD-10-PCS; principal; 2018-09-29)
DX: C18.4 Malignant neoplasm of transverse colon (principal); I10 Essential (primary) hypertension; E78.5 Hyperlipidemia, unspecified; I25.10 Atherosclerotic heart disease of native coronary artery without angina pectoris; F41.9 Anxiety disorder, unspecified; N40.0 Benign prostatic hyperplasia without lower urinary tract symptoms; Z87.891 Personal history of nicotine dependence
CPT/HCPCS: 36415; 36416; 80048; 85025; 88309; J0131; J0670; J0694; J1100; J1650; J1885; J2001; J2250; J2405; J2704; J3010; J3490; S0028

== ENCOUNTER 2018-10-03 08:21 | Inpatient (IN) | payer MEDICARE, BC ==
[2018-10-03] MEDS ORDERED: Pantoprazole 40 MG VIAL ONE (09:08)
[2018-10-03] MEDS ORDERED: diphenhydrAMINE 50 MG/ML VIAL ONE (09:08)
[2018-10-03] MEDS ORDERED: Ketorolac Tromethamine 30 MG/ML VIAL ONE (09:08)
[2018-10-03] MEDS ORDERED: Metoclopramide HCl 10 MG/2 ML VIAL ONE (09:08)
[2018-10-03 10:05] LABS: #Lymphocytes 1.2 thou/uL (1.20-3.40); #Monocytes 1.9 thou/uL (0.11-0.59); #Neutrophils 10.6 thou/uL (1.40-6.50); %Basophils 0.3 % (0.0-1.0); %Eosinophils 0.3 % (0.0-10.0); %Lymphocytes 8.8 % (21.0-51.0); %Monocytes 13.7 % (0.0-10.0); %Neutrophils 76.9 % (42.0-75.0); Hemoglobin 17.3 g/dL (14.0-18.0); Mean Corpuscular HGB CONC 33.1 g/dL (32.0-36.0); Mean Corpuscular Hemoglobin 33.8 pg (27.0-31.0); Mean Platelet Volume 8.2 fL (7.4-10.4); Platelet Count 177 thou/uL (130-400); RBC Distribution Width 12.9 % (11.5-14.5); Red Blood Cell (RBC) Count 5.12 mill/uL (4.70-6.10); White Blood Cell (WBC) Count 13.7 thou/uL (4.8-10.8)
[2018-10-03 10:24] LABS: ALT (SGPT) 20 U/L (8-55); AST (SGOT) 21 U/L (5-34); Albumin 3.8 g/dL (3.4-4.8); Alkaline Phosphatase 64 U/L (40-150); Anion Gap 21 mmol/L (10-20); BUN (Urea Nitrogen) 27 mg/dL (8.4-25.7); Bilirubin, Total 1.9 mg/dL (0.2-1.2); Calc. Creatinine Clearance 0 mL/min (70-130); Calcium 10.2 mg/dL (7.8-10.44); Carbon Dioxide 27 mmol/L (23-31); Chloride 94 mmol/L (98-107); Estimated GFR-MDRD 65; Globulin 3.3 g/dL (2.4-3.5); Glucose 179 mg/dL (83-110); Potassium 5.3 mmol/L (3.5-5.1); Protein, Total 7.1 g/dL (5.8-8.1); Sodium 137 mmol/L (136-145)
[2018-10-03] MEDS ORDERED: ISOVUE-370 76%-LOCM 1 ML ONE (11:09)
--- NOTE | 2018-10-03 11:17 | CT ---
CT abdomen with contrast CT pelvis with contrast: DATE: 10/03/2018 HISTORY: 78-year-old male with postsurgical abdominal pain 3 days after partial colectomy COMPARISON: 09/08/2018 TECHNIQUE: IV injection of iodinated contrast media: 100 mL [id number] Oral contrast media:Not administered FINDINGS: There is pneumoperitoneum, with small to moderate amount of free intraperitoneal fluid in the nondepe ndent, ventral upper aspect of the peritoneal cavity, plus multiple tiny scattered foci of free air elsewhere in the peritoneal cavity plus in the right retroperitoneum in the right posterior pararenal space. The right colon is absent from its location. There is a new anastomotic site of the colon at midline in the expected location of the transverse colon. The rest of the colon distal to this rem ains. There is a small amount of free fluid in the dependent portion of the pelvic cavity. Small to moderate amount of free fluid at the right pelvic inlet, Morison's pouch, small amount of free fluid along bilateral paracolic gutters, and small to moderate amount around the liver. No major pathology identified involving pancreas, abdominal aorta, adrenals, kidneys, liver, spleen, or urinar y bladder, other than small amount of air in the urinary bladder, presumably from recent catheterization. No consolidation or pleural effusion at lung bases. Fluid-filled loops of nondilated small intestine and colon. IMPRESSION: 1. Status post partial colectomy. 2. No evidence of abscess. 3. Pneumoperitoneum and free intraperitoneal fluid are nonspecific this soon after laparoscopy. 4. Fluid-filled loops of small intestine with air-fluid levels. Nonspecific, but probably postoperati ve ileus, mild.
[2018-10-03] MEDS ORDERED: Lidocaine Viscous Sol 2% 15 ml UD Cup ONE (11:20)
[2018-10-03] MEDS ORDERED: Benzocaine 20% Spray 60 ML CAN ONE (11:30)
--- NOTE | 2018-10-03 11:54 | HP ---
CHIEF COMPLAINT: Nausea, vomiting, and abdominal distention. HISTORY OF PRESENT ILLNESS: This is a 78-year-old male, who is status post right colectomy on , who presents with a history of abdominal distention that is become gradually worse to the week after discharge, not able to keep even liquids down. He vomited this morning. This is causing more abdominal pain. He had some weakness associated with that. No fevers or chills. His CT scan shows scattered small amounts of free air, which could be consistent with early postop course, fluid in the right pericolic gutter, but no significant stranding around the anastomosis. He is not tachycardic. PAST MEDICAL HISTORY: Includes coronary artery disease, ventricular arrhythmia, and hypercholesterolemia. PAST SURGICAL HISTORY: ICD, heart ablation, pilonidal cyst, tonsillectomy, and prostate. MEDICATIONS: 1. Aspirin. 2. Sotalol. 3. Betamethasone. 4. Pravastatin. 5. Furosemide. 6. Klor-Con. 7. Neurontin. ALLERGIES: NO KNOWN DRUG ALLERGIES. SOCIAL HISTORY: No smoking, alcohol or other drugs. He is . REVIEW OF SYSTEMS: Otherwise negative. PHYSICAL EXAMINATION: VITAL SIGNS: His pulse is 90 and blood pressure is 107/83. He is afebrile. CHEST: Clear. HEART: Regular rate. ABDOMEN: Soft and distended. There are no peritoneal signs. His incision is healing well. LABORATORY DATA: White blood cell count is 13, hemoglobin is 17, platelet count is 177, no bands. Sodium 137, potassium 5.3, creatinine 1.09, and glucose 179. CT scan as above. ASSESSMENT: Postoperative recurrent ileus with small to moderate amount of free air on CT, which would be concerning except for the early postop course. He has a soft abdomen and he has no significant left shift. PLAN: Admission, IV fluids, NG to recheck his labs to the OR if he does not improve or becomes more unstable. Job ID: [id number]
[2018-10-03 13:59] LABS: Lactic Acid 1.8 mmol/L (0.5-2.2)
[2018-10-03] MEDS ORDERED: Promethazine HCl 25 MG/ML VIAL IM PRN (14:13)
[2018-10-03] MEDS ORDERED: hydrALAZINE 20 MG/ML VIAL SLOW IVP PRN (14:13)
[2018-10-03] MEDS ORDERED: Morphine 4 MG/ML VIAL SLOW IVP PRN (14:13)
[2018-10-03] MEDS ORDERED: Dextrose 5% in Water 1,000 ML IV PRN (14:13)
[2018-10-03] MEDS ORDERED: Acetaminophen 1,000 MG in Premix Bag 1 BAG IVPB PRN (14:13)
[2018-10-03] MEDS ORDERED: Dextrose 50% Abboject 50 ML SYRINGE SLOW IVP PRN (14:13)
[2018-10-03] MEDS: Sodium Chloride 0.9% 1,000 ML IV SCH ×2 (15:23→21:41)
[2018-10-03] MEDS: Famotidine/PF 20 mg/2ml Vial SLOW IVP SCH (21:37)
[2018-10-03] MEDS: Enoxaparin Sodium 40 MG/0.4 ML SYRINGE SC SCH (21:38)
[2018-10-03] MEDS: Famotidine 20 MG TAB PO SCH (21:38)
[2018-10-04] MEDS: Ondansetron PF 4 MG/2 ML Vial IVP PRN (03:56)
[2018-10-04] MEDS: Morphine 2 MG/ML SYRINGE SLOW IVP PRN (04:03)
[2018-10-04 05:15] LABS: Anion Gap 14 mmol/L (10-20); BUN (Urea Nitrogen) 24 mg/dL (8.4-25.7); Calc. Creatinine Clearance 109 mL/min (70-130); Carbon Dioxide 29 mmol/L (23-31); Chloride 99 mmol/L (98-107); Estimated GFR-MDRD Greater than 90; Glucose 137 mg/dL (83-110); Potassium 4.5 mmol/L (3.5-5.1); Sodium 137 mmol/L (136-145)
[2018-10-04 05:24] LABS: Band 11 % (5-11); Hemoglobin 15.6 g/dL (14.0-18.0); Lymphocytes 21 % (21-51); MDiff Complete? YES; Mean Corpuscular HGB CONC 33.3 g/dL (32.0-36.0); Mean Corpuscular Hemoglobin 33.8 pg (27.0-31.0); Mean Platelet Volume 8.3 fL (7.4-10.4); Monocytes 15 % (0-10); Neutrophil 51 % (42-75); Platelet Count 157 thou/uL (130-400); Platelet Morphology Comment Appears Adequate; RBC Distribution Width 12.9 % (11.5-14.5); RBC Morphology Normal; Reactive Lymphocytes 2 % (0-10); Red Blood Cell (RBC) Count 4.61 mill/uL (4.70-6.10); White Blood Cell (WBC) Count 5.6 thou/uL (4.8-10.8)
--- NOTE | 2018-10-04 08:29 | PDOC.GSPN ---
Surgery Progress Note: Subj - Subjective Narrative: Still having nausea, no pain Surgery Progress Note: Obj - Vital signs Vital signs: Vital Signs - Most Recent Temp Pulse Resp BP Pulse Ox 98.6 F 95 16 118/72 92 L 10/04/18 04:04 10/04/18 04:04 10/04/18 04:04 10/04/18 04:04 10/04/18 00:38 - Physical Exam General: no distress Cardiovascular: regular rate and rhythm Respiratory: clear to auscultation Abdomen: soft, nondistended, tender (only mild tenderness at incision, no guarding or rebound) Wound: healing well (No infection) Surgery Progress Note: Results - Labs Result Diagrams: 10/04/18 04:19 10/04/18 04:19 Lab results: Laboratory Results - last 24 hr 10/04/18 10/04/18 04:19 04:19 WBC 5.6 RBC 4.61 L Hgb 15.6 Hct 46.9 MCV 102.0 H MCH 33.8 H MCHC 33.3 RDW 12.9 Plt Count 157 MPV 8.3 Neutrophils % (Manual) 51 Band Neuts % (Manual) 11 Lymphocytes % (Manual) 21 Reactive Lymphs % 2 Monocytes % (Manual) 15 H Plt Morphology Comment Appears Adequate RBC Morph Comment Normal Sodium 137 Potassium 4.5 Chloride 99 Carbon Dioxide 29 Anion Gap 14 BUN 24 Creatinine 0.81 Estimated GFR (MDRD) Greater than 90 Glucose 137 H Calcium 9.0 Surgery Progress Note: A/P - Problem (1) Colonic mass Current Visit: No Code(s): K63.9 - DISEASE OF INTESTINE, UNSPECIFIED Status : Acute (2) Ileus following gastrointestinal surgery Current Visit: Yes Code(s): K91.89 - OTH POSTPROCEDURAL COMPLICATIONS AND DISORDERS OF DGSTV SYS; K56.7 - ILEUS, UNSPECIFIED Status: Acute - Plan Plan: He has good bowel sounds. -Likely DC NG later today -path is T2, N0, Mx invasive adeno -continue ice chips
[2018-10-04] MEDS: Sodium Chloride 0.9% 1,000 ML IV SCH ×3 (08:46→21:30)
[2018-10-04] MEDS: Famotidine/PF 20 mg/2ml Vial SLOW IVP SCH ×2 (08:46→21:32)
[2018-10-04] MEDS: Famotidine 20 MG TAB PO SCH ×2 (08:46→21:33)
[2018-10-04] MEDS: Sotalol HCl 80 MG TAB PO SCH (21:32)
[2018-10-04] MEDS: Enoxaparin Sodium 40 MG/0.4 ML SYRINGE SC SCH (21:32)
[2018-10-05] MEDS: Sodium Chloride 0.9% 1,000 ML IV SCH ×3 (06:20→20:29)
[2018-10-05 06:28] LABS: Band 14 % (5-11); Eosinophils 1 % (0-10); Hemoglobin 14.7 g/dL (14.0-18.0); Lymphocytes 36 % (21-51); MDiff Complete? YES; Mean Corpuscular Hemoglobin 33.6 pg (27.0-31.0); Mean Platelet Volume 8.2 fL (7.4-10.4); Monocytes 8 % (0-10); Neutrophil 39 % (42-75); Platelet Count 166 thou/uL (130-400); Platelet Morphology Comment Appears Adequate; RBC Distribution Width 12.9 % (11.5-14.5); Reactive Lymphocytes 1 % (0-10); Red Blood Cell (RBC) Count 4.37 mill/uL (4.70-6.10); White Blood Cell (WBC) Count 8.2 thou/uL (4.8-10.8)
[2018-10-05] MEDS: Famotidine 20 MG TAB PO SCH ×2 (10:14→20:10)
[2018-10-05] MEDS: Sotalol HCl 80 MG TAB PO SCH ×2 (10:15→20:09)
[2018-10-05] MEDS: Famotidine/PF 20 mg/2ml Vial SLOW IVP SCH (10:17)
[2018-10-05] MEDS ORDERED: Sotalol HCl 80 MG TAB PO SCH (12:30)
[2018-10-05] MEDS ORDERED: Digoxin 0.5 MG/2 ML AMP SLOW IVP SCH ×3 (12:45→20:00)
--- NOTE | 2018-10-05 12:46 | PDOC.GSPN ---
Surgery Progress Note: Subj - Subjective Narrative: Afib RVR this am, no nausea, he is hungry Surgery Progress Note: Obj - Vital signs Vital signs: Vital Signs - Most Recent Temp Pulse Resp BP Pulse Ox 98.1 F 110 H 20 97/62 91 L 10/05/18 07:33 10/05/18 10:15 10/05/18 07:33 10/05/18 10:15 10/05/18 07:33 - Physical Exam General: no distress Neck: diffuse goiter Respiratory: clear to auscultation Abdomen: soft, non tender, nondistended, positive bowel sounds Wound: healing well Surgery Progress Note: Results - Labs Result Diagrams: 10/05/18 05:45 10/04/18 04:19 Lab results: Laboratory Results - last 24 hr 10/05/18 05:45 WBC 8.2 RBC 4.37 L Hgb 14.7 Hct 44.7 MCV 102.0 H MCH 33.6 H MCHC 33.0 RDW 12.9 Plt Count 166 MPV 8.2 Neutrophils % (Manual) 39 L Band Neuts % (Manual) 14 H Lymphocytes % (Manual) 36 Reactive Lymphs % 1 Monocytes % (Manual) 8 Eosinophils % (Manual) 1 Basophils % (Manual) 1 Plt Morphology Comment Appears Adequate Surgery Progress Note: A/P - Problem (1) Colonic mass Current Visit: No Code(s): K63.9 - DISEASE OF INTESTINE, UNSPECIFIED Status : Acute (2) Ileus following gastrointestinal surgery Current Visit: Yes Code(s): K91.89 - OTH POSTPROCEDURAL COMPLICATIONS AND DISORDERS OF DGSTV SYS; K56.7 - ILEUS, UNSPECIFIED Status: Acute - Plan Plan: Ileus resolved -full liquid diet -appreciate cardiology recs
[2018-10-05] MEDS ORDERED: traMADol HCl 50 MG TAB PO PRN (12:47)
[2018-10-05] MEDS: Polyethylene Glycol OPTH DROP 15 ML BOT EA EYE SCH ×3 (13:24→20:28)
[2018-10-05] MEDS ORDERED: Sodium Chloride 5% Opth 15 ML BOT EA EYE SCH (15:00)
--- NOTE | 2018-10-05 15:41 | PDOC.PN ---
- Subjective Encounter Start Date: 10/05/18 Encounter Start Time: 15:40 Subjective: seen & examined. Admitted [facility] for post-ip ileus.s/p Colectomy recently -: PCP Dr. Hung. -: consulted for A-fib w RVR. 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 Zapata and DR. Howell's pt - Objective MAR Reviewed: Yes Vital Signs & Weight: Vital Signs (12 hours) Temp Pulse Resp BP BP Pulse Ox 10/05/18 13:23 132 H 10/05/18 10:15 110 H 97/62 10/05/18 07:33 98.1 F 110 H 20 97/62 91 L 10/05/18 04:00 98.5 F 81 18 102/59 L 92 L Weight Weight 230 lb 0.012 oz I&O: 10/04/18 10/05/18 10/06/18 06:59 06:59 06:59 Intake Total 1939 7389 Output Total 1340 400 Balance 599 6989 Result Diagrams: 10/05/18 05:45 10/04/18 04:19 Additional Labs: Microbiology 10/03/18 12:05 Venous blood - Right Arm Blood Culture - Preliminary NO GROWTH AT 48 HOURS 10/03/18 12:05 Venous blood - Left Hand Blood Culture - Preliminary NO GROWTH AT 48 HOURS Laboratory Tests 10/03/18 10/03/18 09:39 13:28 Lactic Acid 4.6 H* 1.8 Phys Exam - Physical Examination Constitutional: NAD HEENT: PERRLA, moist MMs, sclera anicteric, oral pharynx no lesions, 2+ tonsils Neck: no nodes, no JVD, supple, full ROM Respiratory: no wheezing, no rales, no rhonchi, clear to auscultation bilateral Cardiovascular: irregular Gastrointestinal: soft, non-tender, no distention Musculoskeletal: no edema, pulses present Neurological: non-focal, normal sensation, moves all 4 limbs Psychiatric: normal affect, A&O x 3 Skin: no rash Dx/Plan (1) Atrial fibrillation with RVR Code(s): I48.91 - UNSPECIFIED ATRIAL FIBRILLATION Status: Acute (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 - MALIGNANT NEOPLASM OF COLON, UNSPECIFIED Status: Chronic Comment: s/p colectomy 09/29/18 (3) Ileus following gastrointestinal surgery Code(s): K91.89 - OTH POSTPROCEDURAL COMPLICATIONS AND DISORDERS OF DGSTV SYS; K56.7 - ILEUS, UNSPECIFIED Status: Acute Comment: resolved (4) Dyslipidemia Code(s): E78.5 - HYPERLIPIDEMIA, UNSPECIFIED Status: Chronic (5) Hypertension Code(s): I10 - ESSENTIAL (PRIMARY) HYPERTENSION Status: Chronic Qualifiers: Hypertension type: essential hypertension Qualified Code(s): I10 - Essential (primary) hypertension Comment: controlled - Plan DVT proph w/SCDs continue Sotalol. pt asymptomatic . 1 dose digoxin for RVR -: last ECHO in 03/05 w recent Outpt f/u w Dr. Nj & Dr. Howell -: will get AICD interrogated -: start CCB drip if HR remains uncontrolled otherwise per Cardiology -: will also consult EP given h/o multiple ablations * .HD stable * cont home meds * IM team will follow * ECHO to be repeated if recommended by Cardiology * tele monitoring Review of Systems - Review of Systems Constitutional: negative: fever, chills, sweats, weakness, malaise, other ENT: negative: Ear Pain, Ear Discharge, Nose Pain, Nose Discharge, Nose Congestion, Mouth Pain, Mouth Swelling, Throat Pain, Throat Swelling, Other Respiratory: negative: Cough, Dry, Shortness of Breath, Hemoptysis, SOB with Excertion, Pleuritic Pain, Sputum, Wheezing Cardiovascular: negative: chest pain, palpitations, orthopnea, paroxysmal nocturnal dyspnea, edema, light headedness, other Gastrointestinal: negative: Nausea, Vomiting, Abdominal Pain, Diarrhea, Constipation, Melena, Hematochezia, Other Genitourinary: negative: Dysuria, Frequency, Incontinence, Hematuria, Retention , Other Musculoskeletal: negative: Neck Pain, Shoulder Pain, Arm Pain, Back Pain, Hand Pain, Leg Pain, Foot Pain, Other Skin: negative: Rash, Lesions, Solomon, Bruising, Other Neurological: negative: Weakness, Numbness, Incoordination, Change in Speech, Confusion, Seizures, Other - Medications/Allergies Allergies/Adverse Reactions: Allergies Allergy/AdvReac Type Severity Reaction Status Date / Time No Known Allergies Allergy Verified 09/23/18 12:14 Medications: Current Medications Albuterol/Ipratropium (Duoneb) 3 ml NEB Q4H PRN PRN Reason: Wheezing Atorvastatin Calcium (Lipitor) 10 mg PO HS [facility] Dextrose/Water (Dextrose 50%) 25 gm SLOW IVP PRN PRN PRN Reason: Hypoglycemia Enoxaparin Sodium (Lovenox) 40 mg SC 2100 [facility] Last Admin: 10/04/18 21:32 Dose: 40 mg Famotidine (Pepcid) 20 mg PO Q12HR [facility] Last Admin: 10/05/18 10:14 Dose: 20 mg Gabapentin (Neurontin) 300 mg PO BID [facility] Glucagon (Glucagon) 1 mg IM PRN PRN PRN Reason: Hypoglycemia Hydralazine HCl (Apresoline) 10 mg SLOW IVP Q4H PRN PRN Reason: SBP > 170 or DBP > 100 Dextrose/Water (D5w) 1,000 mls @ 0 mls/hr IV .Q0M PRN PRN Reason: Hypoglycemia Sodium Chloride (Normal Saline 0.9%) 1,000 mls @ 120 mls/hr IV .Q8H20M [facility] Last Admin: 10/05/18 06:20 Dose: 1,000 mls Morphine Sulfate (Morphine) 2 mg SLOW IVP Q2H PRN PRN Reason: Moderate Pain (4-6) Last Admin: 10/04/18 04:03 Dose: 2 mg Morphine Sulfate (Morphine) 4 mg SLOW IVP Q2H PRN PRN Reason: Severe Pain (7-10) Multivitamins/Minerals (Ocuvite With Lutein) 1 tab PO DAILY [facility] Ondansetron HCl (Zofran) 4 mg IVP Q6H PRN PRN Reason: Nausea/Vomiting Last Admin: 10/04/18 03:56 Dose: 4 mg Promethazine HCl (Phenergan) 12.5 mg IM Q4H PRN PRN Reason: Nausea/Vomiting Propylene Glycol (Systane Opth Drop 15ml Bot) 1 drop EA EYE QID [facility] Last Admin: 10/05/18 13:24 Dose: 1 drop Sodium Chloride (Flush - Normal Saline) 10 ml IVF PRN PRN PRN Reason: Saline Flush Sodium Chloride (Pierre-128 5% Oph Mag) 1 drop EA EYE TID [facility] Sotalol HCl (Betapace) 120 mg PO BID [facility] Tamsulosin HCl (Flomax) 0.4 mg PO DAILY [facility] Tramadol HCl (Ultram) 50 mg PO Q6H PRN PRN Reason: Mild-Moderate Pain (1-5) Tramadol HCl (Ultram) 100 mg PO Q6H PRN PRN Reason: Moderate to Severe Pain (6-10)
[2018-10-05] MEDS ORDERED: Digoxin 0.5 MG/2 ML AMP SLOW IVP PRN (16:59)
[2018-10-05] MEDS: Sodium Chloride 5% Opth 15 ML BOT EA EYE SCH ×2 (18:30→20:29)
[2018-10-05] MEDS: traMADol HCl 50 MG TAB PO PRN (18:31)
[2018-10-05] MEDS: Atorvastatin Calcium 10 MG TAB PO SCH (20:10)
[2018-10-05] MEDS: Gabapentin 300 MG CAP PO SCH (20:10)
[2018-10-05] MEDS: Enoxaparin Sodium 100 MG/ML SYRINGE SC SCH (20:11)
[2018-10-05] MEDS: Morphine 2 MG/ML SYRINGE SLOW IVP PRN (23:09)
--- NOTE | 2018-10-05 23:53 | CON ---
DATE OF CONSULTATION: 10/05/2018 PROBLEMS: I am seeing Mr. Waddell at our [facility] Telemetry Floor as electrophysiology testing consultant. His problems are: 1. Newly found atrial fibrillation with rapid rates, which persists. 2. Prior history of recurrent ventricular tachycardia, status post 2 prior ablations to a good suppression of arrhythmia with sotalol. 3. History of sustained VT requiring ICD implantation in May 2017 with a Medtronic device. 4. History of structurally normal heart in the past. 5. History of colon cancer requiring colon resection recently. 6. History of paroxysmal SVT. 7. Risk factors including hypertension and hyperlipidemia. ALLERGIES: NONE. MEDICATIONS: At home included atorvastatin, gabapentin, sotalol 120 mg twice a day, potassium chloride, vitamin E and vitamin C, sodium chloride, tamsulosin and eyedrops. SUBJECTIVE: Mr. Waddell is here as referred from our rehabilitation facility from in-house hence developing rapid heart beats. He was noted to be in atrial fibrillation on transfer to the inpatient unit. Originally admission was though on the with abdominal distention, nausea, vomiting, unable to keep fluids and food down, he was noted to be having a postoperative recurrent ileus and just started on IV fluids. Eventually, the ileus has resolved. He has improved from this standpoint. Currently has mild fatigue. Denies nausea and vomiting. No chest pains. Abdominal discomforts are resolving. No fever, chills, or cough. No angina-like discomfort. No stroke-like problems. No bleeding issues. The rest of 12-point system otherwise unremarkable. PAST MEDICAL HISTORY: As above. PAST SURGICAL HISTORY: Significant for the ICD implant as noted above, recent colon surgery for colon cancer, two ablations in [facility] for ventricular tachycardia, history of pilonidal cyst, tonsillectomy, and prostate surgery also noted. SOCIAL HISTORY: Denies smoking, EtOH, or drug abuse. FAMILY HISTORY: Not significant. OBJECTIVE DATA: VITAL SIGNS: Blood pressure is 97/62, heart rate 110, respirations 12, the patient is afebrile. GENERAL: Alert and oriented man, in no apparent distress. NECK: Supple. Jugular veins not distended. CHEST: Coarse without crackles. HEART: Irregularly irregular. S1 and S2 variable. I could not appreciate murmur or gallop. PMI is not displaced. Left precordial ICD insertion site is well healed. ABDOMEN: Benign with surgical scar. Bowel sounds are positive. EXTREMITIES: Lower extremities without edema clubbing or cyanosis. Pulses are adequate. NEUROLOGIC: The patient is nonfocal. MUSCULOSKELETAL: Exam without joint swelling or deformity. SKIN: Without rash. DATABASE: EKG is revealing atrial fibrillation, rate of 110-130 beats per minute. LABORATORY DATA: White count is 8.2, hemoglobin 14.7, platelet count is ___, sodium 137, potassium 4.5, BUN is 24, creatinine 0.81, bilirubin is 1.9. Lactic acid is 4.6, now 1.8. ASSESSMENT AND PLAN: Mr. Waddell is a very pleasant 78-year-old male with history of recurrent ventricular arrhythmias status post ablation and no recurrence on sotalol, implantable cardioverter defibrillator implantation, otherwise structurally normal heart noted in the past, who presented with initially ileus, thought to be secondary to recent colon surgery, but then while in the hospital, developed atrial fibrillation with rapid rates, which still persists. I suspect the afib episode may be provoked by his ileus and poor sotalol absorption, as well as the stress of the recent abdominal surgery. Resuming to regular sotalol with adequate absorption may help to supress bith atrila and ventricular arrhythmia s as well. We have discussed the potential treatment options to include cardioversion, hence the short duration of atrial fibrillation, we are not expecting high clot burden. Nevertheless, anticoagulation would be reasonable and I would increase his Lovenox if that is reasonable for surgical standpoint. His rate control is suboptimal, resuming his prior medications including sotalol to be continued. Digoxin and IV diltiazem could be considered. Although, his blood pressure is still borderline. He might need further boluses to prevent further blood pressure drops. We will follow with you. Thank you again for letting me participate in the care of this patient. Job ID: [id number] [facility]
--- NOTE | 2018-10-05 23:53 | CON ---
DATE OF CONSULTATION: HISTORY: Nilesh Waddell is a pleasant 78-year-old white male, followed by Dr. Zapata. He has a long time history of ventricular tachycardia. In August 2011, he underwent cardiac catheterization. He had ejection fraction of 55%. He had 20% proximal LAD plaque, 20% mid RCA and 20% distal RCA plaquing. He has had an ICD placed. He also has undergone ventricular tachycardia ablation x2. He is most recently admitted in February 2018 with recurrent ventricular tachycardia. He was placed on sotalol, which apparently has done a good job of suppressing his ventricular tachycardia. On September 29, 2018, he underwent extended right colectomy due to invasive adenocarcinoma of the transverse colon. He was discharged 2 days later. However, he returned on October 03, 2 days after discharge, with recurrent nausea and vomiting. He was kept n.p.o. except for medications for 2 days and now he has been started back on ice chips. It was noted that his heart rate was very rapid today. The EKG shows atrial fibrillation with fast ventricular response. PAST MEDICAL HISTORY: Mild coronary artery disease, hypercholesterolemia, hypertension, nonsustained ventricular tachycardia. PAST SURGICAL HISTORY: Tonsillectomy, AICD placement, ventricular tachycardia ablation x2. MEDICATIONS: Gabapentin 300 b.i.d., potassium chloride 10 mEq q.a.m., pravastatin 40 q.h.s., sotalol 120 b.i.d., Flomax 0.4 daily. ALLERGIES: NONE. SOCIAL HISTORY: He does not smoke. REVIEW OF SYSTEMS: A 10-point review of systems is otherwise unremarkable. PHYSICAL EXAMINATION: VITAL SIGNS: Blood pressure 105/80, pulse ranging from 97 up to 132 per minute and irregularly irregular. HEENT: PERRL. NECK: Supple. CHEST: Clear. CARDIAC: S1 and S2 normal without any S3, S4, or murmurs. ABDOMEN: Normal bowel sounds without tenderness. EXTREMITIES: Reveal no clubbing, cyanosis, or edema. NEUROLOGIC: Grossly intact. SKIN: Warm and dry. LABORATORY DATA: EKG reveals atrial fibrillation with rapid ventricular response of 148 per minute, nonspecific ST and T-wave changes. Hemoglobin 14.7, hematocrit 44.7, white count 8200, platelets 166,000. Sodium 137, potassium 4.5, chloride 99, carbon dioxide 29, BUN 24, creatinine 0.81. IMPRESSION: 1. New onset atrial fibrillation with rapid ventricular response. Some of this certainly may have been due to inadequate dosing of sotalol. He is being kept n.p.o. with his ileus after surgery. 2. Status post transverse colon cancer resection. Readmitted with postoperative ileus, which appears to be resolving at this time. 3. History of recurrent ventricular tachycardia, status post two ablations, which appears to be well-suppressed now with sotalol. 4. Minimal coronary artery disease. 5. Status post implantable cardioverter-defibrillator placement. 6. Hypertension. 7. Hypercholesterolemia. PLAN: Mr. Waddell has been started on Lovenox 1 mg/kg b.i.d. He has been given doses of digoxin for better rate control. He will be continued on the sotalol 120 b.i.d. and probably undergo electrocardioversion. Job ID: [id number]
[2018-10-06] MEDS: Sodium Chloride 0.9% 1,000 ML IV SCH (05:55)
[2018-10-06] MEDS: Sodium Chloride 5% Opth 15 ML BOT EA EYE SCH ×3 (07:57→21:04)
[2018-10-06] MEDS: Enoxaparin Sodium 100 MG/ML SYRINGE SC SCH (07:57)
[2018-10-06] MEDS: Polyethylene Glycol OPTH DROP 15 ML BOT EA EYE SCH ×4 (07:58→21:04)
[2018-10-06] MEDS: Gabapentin 300 MG CAP PO SCH ×2 (07:58→20:45)
[2018-10-06] MEDS: Famotidine 20 MG TAB PO SCH ×2 (07:58→20:45)
[2018-10-06] MEDS: Sotalol HCl 80 MG TAB PO SCH ×2 (07:58→20:43)
[2018-10-06] MEDS: Tamsulosin HCl 0.4 MG CAP PO SCH (07:59)
[2018-10-06] MEDS: Vit A,C & E/Lutein/Minerals Tablet PO SCH (07:59)
--- NOTE | 2018-10-06 10:43 | PRG ---
DATE OF SERVICE: 10/06/2018 DISCUSSION: Mr. Waddell, seen by Dr. Howell, who is going to ablate him today. He tolerated the full liquids. He has been n.p.o. since midnight. He is hungry. He is afebrile. Vital signs are stable. His abdomen is soft. His wounds are healing well. He has active bowel sounds. No abdominal pain. ASSESSMENT: 1. Resolved ileus. 2. Atrial fibrillation, RVR to undergo ablation today. PLAN: We will allow GI soft diet after his procedure today. I suspect he would be ready to go home tomorrow from my standpoint. Job ID: [id number]
[2018-10-06 12:05] VITALS: BMI 25.3
--- NOTE | 2018-10-06 12:31 | PDOC.CTH ---
Cardiology Progress Note - Subjective EP PROGRESS NOTE: 10/06/18 Mr. Waddell is here as referred from our rehabilitation facility from in-house hence developing rapid heart beats. He was noted to be in atrial fibrillation on transfer to the inpatient unit. Originally admission was though on the with abdominal distention, nausea, vomiting, unable to keep fluids and food down, he was noted to be having a postoperative recurrent ileus and just started on IV fluids. Eventually, the ileus has resolved. He was scheduled for cardioversion but was found to have converted to NSR last night by review of tele. He is feeling well today. No cardiac concerns or complaints. No bleeding issues seen. - Objective Vital Signs Temp Pulse Resp BP Pulse Ox 10/06/18 12:00 97.2 F L 78 18 124/85 92 L 10/06/18 07:58 82 10/06/18 07:54 97.8 F 82 20 126/82 97 10/06/18 04:00 97.8 F 75 16 105/67 96 Admit Weight 230 lb 0.012 oz Weight 208 lb 10/05/18 10/06/18 10/07/18 06:59 06:59 06:59 Intake Total 7389 1440 Output Total 400 Balance 6989 1440 - Physical Examination General/Neuro: alert & oriented x3, NAD Neck: carotid US brisk, no JVD present Lungs: CTA, unlabored respirations Heart: PMI normal, RRR Abdomen: NT/ND, soft - Telemetry Telemetry Rhythm: SR - Labs Result Diagrams: 10/05/18 05:45 10/04/18 04:19 - Assessment/Plan 1. Newly found atrial fibrillation with rapid rates -on lovenox for anticoagulation. Will need Eliquis 5mg PO BID if OK with surgeon after recent colon resection - Sotalol was resumed, spontaneously converted to SR last night. brief paroxysmal A Flutter since then but largely SR. - Expect better absoprtion of sotalol now that ileus is resolved. 2. History of recurrent ventricular tachycardia, status post 2 prior ablations -good suppression of arrhythmia with sotalol. 3. ICD implantation in May 2017 with a Medtronic device. 4. Colon cancer requiring colon resection recently. 5. CHADS2-VASC: </= 3 - OAC indicated senior living. see above Continue sotalol and will need to start OAC with Eliquis before DC home.
--- NOTE | 2018-10-06 15:11 | PDOC.EVN ---
Event Note - Event Note Event Note: Went to see pt but he was downstairs for attempted DC EXPEDITER CLERK reported that it was not done as pt had converted to NSR Cont sotalol,Lovenox BID per Cardiology & EP Will follow peripherally. HD stable
[2018-10-06] MEDS: traMADol HCl 50 MG TAB PO PRN ×3 (20:45→21:55)
[2018-10-06] MEDS: Atorvastatin Calcium 10 MG TAB PO SCH (20:45)
[2018-10-06] MEDS: Apixaban 5 MG TAB PO SCH (20:45)
[2018-10-06] MEDS: Ondansetron PF 4 MG/2 ML Vial IVP PRN (21:54)
[2018-10-07] MEDS: Gabapentin 300 MG CAP PO SCH (08:04)
[2018-10-07] MEDS: Tamsulosin HCl 0.4 MG CAP PO SCH (08:04)
[2018-10-07] MEDS: Sotalol HCl 80 MG TAB PO SCH (08:04)
[2018-10-07] MEDS: Vit A,C & E/Lutein/Minerals Tablet PO SCH (08:05)
[2018-10-07] MEDS: Famotidine 20 MG TAB PO SCH (08:06)
[2018-10-07] MEDS: Apixaban 5 MG TAB PO SCH (08:06)
[2018-10-07] MEDS: Polyethylene Glycol OPTH DROP 15 ML BOT EA EYE SCH ×2 (08:06→13:02)
[2018-10-07] MEDS: Sodium Chloride 5% Opth 15 ML BOT EA EYE SCH ×2 (08:14→14:48)
--- NOTE | 2018-10-07 11:50 | EKG ---
Test Reason : PREOP Blood Pressure : / mmHG Vent. Rate : 148 BPM Atrial Rate : 178 BPM P-R Int : 000 ms QRS Dur : 092 ms QT Int : 298 ms P-R-T Axes : 000 033 237 degrees QTc Int : 467 ms Atrial fibrillation with rapid ventricular response Abnormal ECG When compared with ECG of 03-OCT-2018 10:55, (Unconfirmed) Atrial fibrillation has replaced Sinus rhythm Vent. rate has increased BY [address] now depressed in Inferior leads ST now depressed in Lateral leads T wave inversion now evident in Lateral leads Confirmed by DR. Ludy CUELLO ([id number]) on 10/07/2018 11:49:53 AM Referred By: CATHY Confirmed By:DR. Ludy CUELLO
[2018-10-07 12:21] VITALS: BP 112/78; TEMP 97.8
--- NOTE | 2018-10-07 12:21 | PDOC.CTH ---
Cardiology Progress Note - Subjective EP PROGRESS NOTE: 10/07/18 Mr. Waddell is here as referred from our rehabilitation facility from in-house hence developing rapid heart beats. He was noted to be in atrial fibrillation on transfer to the inpatient unit. Originally admission was though on the with abdominal distention, nausea, vomiting, unable to keep fluids and food down, he was noted to be having a postoperative recurrent ileus and just started on IV fluids. Eventually, the ileus has resolved. He was scheduled for cardioversion but was found to have converted to NSR spontaneously. He is feeling well today. No cardiac concerns or complaints. No bleeding issues seen. - Objective Vital Signs Temp Pulse Resp BP BP Pulse Ox 10/07/18 08:04 71 138/84 10/07/18 07:49 97.6 F 71 20 138/84 93 L 10/07/18 04:00 97.8 F 65 16 108/78 98 Admit Weight 230 lb 0.012 oz Weight 208 lb 10/06/18 10/07/18 10/08/18 06:59 06:59 06:59 Intake Total 2039 Balance 2039 - Physical Examination General/Neuro: alert & oriented x3, NAD Neck: carotid US brisk, no JVD present Lungs: CTA, unlabored respirations Heart: PMI normal, RRR Abdomen: NT/ND, soft - Telemetry Telemetry Rhythm: SR - Labs Result Diagrams: 10/05/18 05:45 10/04/18 04:19 - Assessment/Plan 1. Newly found atrial fibrillation with rapid rates - Eliquis 5mg PO BID for OAC - Sotalol was resumed, spontaneously converted to SR last night. brief paroxysmal A Flutter since then but SR - Expect better absoprtion of sotalol now that ileus is resolved. 2. History of recurrent ventricular tachycardia, status post 2 prior ablations -good suppression of arrhythmia with sotalol. 3. ICD implantation in May 2017 with a [employer] device. 4. Colon cancer requiring colon resection recently. 5. CHADS2-VASC: </= 3 - OAC indicated prison. see above Continue sotalol and eliquis as currently dosed upon DC. OK for DC by EP. Will call him to arrange 6 week f/up appt.
--- NOTE | 2018-10-07 12:48 | PRG ---
DATE OF SERVICE: 10/07/2018 SUBJECTIVE: Mr. Waddell is doing well. He has been maintaining sinus rhythm. He converted to sinus rhythm yesterday. He has no chest pain or pressure. No shortness of breath. OBJECTIVE: VITAL SIGNS: Blood pressure 112/78. Pulse 75, it is regular. LUNGS: Clear. CARDIAC: Normal S1 and normal S2. ABDOMEN: Soft and nontender. EXTREMITIES: No edema. ASSESSMENT: 1. Paroxysmal atrial fibrillation, maintaining sinus rhythm. 2. Resolved ileus. PLAN: Can be released home from a cardiac standpoint at any time. Job ID: [id number]
--- NOTE | 2018-10-07 12:58 | PDOC.PN ---
- Subjective Encounter Start Date: 10/07/18 Encounter Start Time: 12:56 Subjective: feels well except one episode of abdominal pain and vomiting last evening -: tolerated a regular meal this morning -: no N/V/abd pain - Objective MAR Reviewed: Yes Vital Signs & Weight: Vital Signs (12 hours) Temp Pulse Resp BP BP Pulse Ox 10/07/18 12:00 97.8 F 75 20 112/78 96 10/07/18 08:04 71 138/84 10/07/18 07:49 97.6 F 71 20 138/84 93 L 10/07/18 04:00 97.8 F 65 16 108/78 98 Weight Admit Weight 230 lb 0.012 oz Weight 208 lb I&O: 10/06/18 10/07/18 10/08/18 06:59 06:59 06:59 Intake Total 2039 Balance 2039 Result Diagrams: 10/05/18 05:45 10/04/18 04:19 Phys Exam - Physical Examination Constitutional: NAD HEENT: PERRLA, moist MMs, sclera anicteric, oral pharynx no lesions Neck: no nodes, no JVD, supple, full ROM Respiratory: no wheezing, no rales, no rhonchi, clear to auscultation bilateral Cardiovascular: RRR, no significant murmur, no rub Gastrointestinal: soft, non-tender, no distention, positive bowel sounds surgical incision clean and dry Musculoskeletal: no edema, pulses present Neurological: non-focal, normal sensation, moves all 4 limbs Psychiatric: normal affect, A&O x 3 Skin: no rash Dx/Plan (1) Atrial fibrillation with RVR Code(s): I48.91 - UNSPECIFIED ATRIAL FIBRILLATION Status: Acute Comment: NSR now. Started on eliquis .cont Sotalol.OP EP F/U (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 - MALIGNANT NEOPLASM OF COLON, UNSPECIFIED Status: Chronic Comment: s/p colectomy 09/29/18 (3) Ileus following gastrointestinal surgery Code(s): K91.89 - OTH POSTPROCEDURAL COMPLICATIONS AND DISORDERS OF DGSTV SYS; K56.7 - ILEUS, UNSPECIFIED Status: Acute Comment: resolved (4) Dyslipidemia Code(s): E78.5 - HYPERLIPIDEMIA, UNSPECIFIED Status: Chronic (5) Hypertension Code(s): I10 - ESSENTIAL (PRIMARY) HYPERTENSION Status: Chronic Qualifiers: Hypertension type: essential hypertension Qualified Code(s): I10 - Essential (primary) hypertension Comment: controlled - Plan DVT proph w/SCDs Pt requesting US of abdomen for pain.will do but do not suspect acute issue -: Ok to DC from IM stand point f abdominal US without acute issues -: HD stable * . Review of Systems - Review of Systems Constitutional: negative: fever, chills, sweats, weakness, malaise, other ENT: negative: Ear Pain, Ear Discharge, Nose Pain, Nose Discharge, Nose Congestion, Mouth Pain, Mouth Swelling, Throat Pain, Throat Swelling, Other Respiratory: negative: Cough, Dry, Shortness of Breath, Hemoptysis, SOB with Excertion, Pleuritic Pain, Sputum, Wheezing Cardiovascular: negative: chest pain, palpitations, orthopnea, paroxysmal nocturnal dyspnea, edema, light headedness, other Gastrointestinal: negative: Nausea, Vomiting, Abdominal Pain, Diarrhea, Constipation, Melena, Hematochezia, Other Genitourinary: negative: Dysuria, Frequency, Incontinence, Hematuria, Retention , Other Musculoskeletal: negative: Neck Pain, Shoulder Pain, Arm Pain, Back Pain, Hand Pain, Leg Pain, Foot Pain, Other Neurological: negative: Weakness, Numbness, Incoordination, Change in Speech, Confusion, Seizures, Other - Medications/Allergies Allergies/Adverse Reactions: Allergies Allergy/AdvReac Type Severity Reaction Status Date / Time No Known Allergies Allergy Verified 09/23/18 12:14 Medications: Current Medications Albuterol/Ipratropium (Duoneb) 3 ml NEB Q4H PRN PRN Reason: Wheezing Apixaban (Eliquis) 5 mg PO BID [facility] Last Admin: 10/07/18 08:06 Dose: 5 mg Atorvastatin Calcium (Lipitor) 10 mg PO HS [facility] Last Admin: 10/06/18 20:45 Dose: 10 mg Dextrose/Water (Dextrose 50%) 25 gm SLOW IVP PRN PRN PRN Reason: Hypoglycemia Famotidine (Pepcid) 20 mg PO Q12HR [facility] Last Admin: 10/07/18 08:06 Dose: 20 mg Gabapentin (Neurontin) 300 mg PO BID [facility] Last Admin: 10/07/18 08:04 Dose: 300 mg Glucagon (Glucagon) 1 mg IM PRN PRN PRN Reason: Hypoglycemia Hydralazine HCl (Apresoline) 10 mg SLOW IVP Q4H PRN PRN Reason: SBP > 170 or DBP > 100 Dextrose/Water (D5w) 1,000 mls @ 0 mls/hr IV .Q0M PRN PRN Reason: Hypoglycemia Morphine Sulfate (Morphine) 2 mg SLOW IVP Q2H PRN PRN Reason: Moderate Pain (4-6) Last Admin: 10/05/18 23:09 Dose: 2 mg Morphine Sulfate (Morphine) 4 mg SLOW IVP Q2H PRN PRN Reason: Severe Pain (7-10) Multivitamins/Minerals (Ocuvite With Lutein) 1 tab PO DAILY [facility] Last Admin: 10/07/18 08:05 Dose: 1 tab Ondansetron HCl (Zofran) 4 mg IVP Q6H PRN PRN Reason: Nausea/Vomiting Last Admin: 10/06/18 21:54 Dose: 4 mg Promethazine HCl (Phenergan) 12.5 mg IM Q4H PRN PRN Reason: Nausea/Vomiting Propylene Glycol (Systane Opth Drop 15ml Bot) 1 drop EA EYE QID [facility] Last Admin: 10/07/18 08:06 Dose: 1 drop Sodium Chloride (Flush - Normal Saline) 10 ml IVF PRN PRN PRN Reason: Saline Flush Last Admin: 10/06/18 20:48 Dose: 10 ml Sodium Chloride (Pierre-128 5% Oph Mag) 1 drop EA EYE TID [facility] Last Admin: 10/07/18 08:14 Dose: Not Given Sotalol HCl (Betapace) 120 mg PO BID [facility] Last Admin: 10/07/18 08:04 Dose: 120 mg Tamsulosin HCl (Flomax) 0.4 mg PO DAILY [facility] Last Admin: 10/07/18 08:04 Dose: 0.4 mg Tramadol HCl (Ultram) 50 mg PO Q6H PRN PRN Reason: Mild-Moderate Pain (1-5) Last Admin: 10/06/18 21:55 Dose: 50 mg Tramadol HCl (Ultram) 100 mg PO Q6H PRN PRN Reason: Moderate to Severe Pain (6-10)
--- NOTE | 2018-10-07 13:49 | DIS ---
DATE OF ADMISSION: 10/06/2018 DATE OF DISCHARGE: 10/07/2018 ADMISSION DIAGNOSIS: Recurrent ileus, status post colectomy. DISCHARGE DIAGNOSES: Recurrent ileus, status post colectomy, history of cardiac arrhythmias, transient atrial fibrillation with rapid ventricular response. PROCEDURES: None. CONDITION ON DISCHARGE: Improved. HOSPITAL COURSE: The patient admitted with recurrent ileus. This did slowly resolve. As we were getting him back on his oral medications and regular food, he developed transient atrial fibrillation with RVR, was seen by both Dr. Zapata as well as Dr. Howell. He converted on his own. No ablation was necessary. He is going to resume his home medications including his home Eliquis. He will be discharged home today. We will follow up with me next week in the office. Job ID: [id number]
== END 2018-10-07 15:27 | disposition home or self-care (01) | DRG 389 ==
LOC: ERS 08:21 → SURG B 13:53 → 2SE 10-05 10:24 → OBSVTOIN 10-06 08:36
PROVIDERS: ADMIT Surgery; ATTEND Surgery
DX: K56.7 Ileus, unspecified (principal); I48.92 Unspecified atrial flutter; I25.10 Atherosclerotic heart disease of native coronary artery without angina pectoris; E78.00 Pure hypercholesterolemia, unspecified; I48.91 Unspecified atrial fibrillation; E78.5 Hyperlipidemia, unspecified; I10 Essential (primary) hypertension; Z79.899 Other long term (current) drug therapy; Z79.82 Long term (current) use of aspirin; Z90.49 Acquired absence of other specified parts of digestive tract; Z95.810 Presence of automatic (implantable) cardiac defibrillator; Z85.038 Personal history of other malignant neoplasm of large intestine
CPT/HCPCS: 36415; 74177; 80048; 80053; 83605; 85025; 87040; 93005; 93010; 96361; 96374; 96375; C9113; J1160; J1200; J1650; J1885; J2270; J2405; J2765; Q9966; S0028

== ENCOUNTER 2018-10-08 20:34 | Inpatient (IN) | payer MEDICARE, BC ==
[2018-10-08] MEDS ORDERED: Ondansetron PF 4 MG/2 ML Vial ONE (21:00)
[2018-10-08] MEDS ORDERED: Morphine 4 MG/ML VIAL ONE ×2 (21:00→22:09)
[2018-10-08 21:14] LABS: #Eosinphils 0.3 thou/uL (0.0-0.7); #Lymphocytes 2.3 thou/uL (1.20-3.40); #Monocytes 1.4 thou/uL (0.11-0.59); #Neutrophils 11.2 thou/uL (1.40-6.50); %Eosinophils 1.8 % (0.0-10.0); %Lymphocytes 15.2 % (21.0-51.0); %Monocytes 9.4 % (0.0-10.0); %Neutrophils 73.6 % (42.0-75.0); Hemoglobin 13.6 g/dL (14.0-18.0); Mean Corpuscular HGB CONC 33.6 g/dL (32.0-36.0); Mean Corpuscular Hemoglobin 33.6 pg (27.0-31.0); Mean Platelet Volume 8.1 fL (7.4-10.4); Platelet Count 206 thou/uL (130-400); RBC Distribution Width 12.8 % (11.5-14.5); Red Blood Cell (RBC) Count 4.05 mill/uL (4.70-6.10); White Blood Cell (WBC) Count 15.2 thou/uL (4.8-10.8)
[2018-10-08 21:34] LABS: ALT (SGPT) 26 U/L (8-55); AST (SGOT) 20 U/L (5-34); Albumin 2.9 g/dL (3.4-4.8); Alkaline Phosphatase 50 U/L (40-150); Anion Gap 11 mmol/L (10-20); BUN (Urea Nitrogen) 9 mg/dL (8.4-25.7); Bilirubin, Total 0.7 mg/dL (0.2-1.2); Calc. Creatinine Clearance 0 mL/min (70-130); Calcium 7.9 mg/dL (7.8-10.44); Carbon Dioxide 27 mmol/L (23-31); Chloride 103 mmol/L (98-107); Estimated GFR-MDRD Greater than 90; Globulin 2.1 g/dL (2.4-3.5); Glucose 147 mg/dL (83-110); Sodium 138 mmol/L (136-145)
--- NOTE | 2018-10-08 21:35 | RAD ---
RADIOGRAPH CHEST ONE VIEW RADIOGRAPH ABDOMEN 2 VIEWS: DATE: 10/08/2018 HISTORY: 78-year-old male with persistent generalized abdominal pain. FINDINGS: Small, mild infiltrate-like density at left lower lung zone, acute versus chronic. Rest of lungs are clear. Cardiomediastinal silhouette normal. Single lead left subclavian AICD. No pneumothorax. As was the case on the 10/03/2028 CT, there continues to be free intraperitoneal air, small amount, ab utting the undersurface of the right hemidiaphragm. There is gas throughout multiple nondilated loops of small and large intestine. There is mild to moderate small bowel fold thickening. Scattered air-fluid levels. IMPRESSION: 1) nonspecific bowel gas pattern, but without evidence of obstruction. 2) pneumoperitoneum.
[2018-10-08 21:40] LABS: Potassium 2.7 mmol/L (3.5-5.1)
[2018-10-08 21:54] LABS: CKMB 3.5 ng/mL (0-6.6)
[2018-10-08] MEDS ORDERED: Potassium Chloride 20 MEQ TAB ONE (22:10)
[2018-10-08] MEDS ORDERED: Potassium Chloride 40 MEQ in Sodium Chloride 0.9% 500 ML IVPB SCH (22:45)
[2018-10-08] MEDS ORDERED: Sotalol HCl 80 MG TAB PO SCH (23:15)
[2018-10-08] MEDS ORDERED: Vancomycin HCl 25 MG/ML Oral PO SCH (23:45)
[2018-10-09] MEDS ORDERED: Morphine 4 MG/ML VIAL SLOW IVP PRN (01:44)
[2018-10-09 01:58] VITALS: BMI 27.7
[2018-10-09] MEDS ORDERED: Pantoprazole 40 MG VIAL IVP SCH ×2 (02:00→21:00)
[2018-10-09] MEDS ORDERED: Sodium Chloride 0.9% 1,000 ML IV SCH (02:15)
[2018-10-09 03:14] LABS: Troponin I 0.039 ng/mL (< 0.028)
[2018-10-09 05:14] LABS: Troponin I 0.034 ng/mL (< 0.028)
[2018-10-09] MEDS ORDERED: Vancomycin HCl 25 MG/ML Oral PO SCH (06:00)
[2018-10-09] MEDS ORDERED: Ondansetron ODT 4 MG TAB PO PRN (07:29)
[2018-10-09] MEDS ORDERED: Diabetic Tussin 200 MG/10 ML UDCUP PO PRN (07:29)
[2018-10-09] MEDS ORDERED: Cepastat Lozenges 1 LOZ PO PRN (07:29)
[2018-10-09] MEDS ORDERED: Calcium Carbonate 500 MG ChewTAB PO PRN (07:29)
[2018-10-09] MEDS ORDERED: Ondansetron PF 4 MG/2 ML Vial IVP PRN (07:29)
[2018-10-09] MEDS ORDERED: hydrALAZINE 20 MG/ML VIAL SLOW IVP PRN (07:29)
[2018-10-09] MEDS ORDERED: HYDROcodone/Acetaminophen 5/325 mg Tablet PO PRN (07:29)
[2018-10-09] MEDS ORDERED: Acetaminophen 325 MG TAB PO PRN (07:29)
[2018-10-09] MEDS ORDERED: Senokot S 8.6-50 MG TAB PO PRN (07:29)
[2018-10-09] MEDS ORDERED: Zolpidem Tartrate 5 MG TAB PO PRN (07:29)
[2018-10-09] MEDS ORDERED: Sodium Chloride 0.65% Nasal 44 ML BOT EA NARE PRN (07:29)
[2018-10-09] MEDS ORDERED: Loratadine 10 MG TAB PO PRN (07:29)
[2018-10-09] MEDS ORDERED: Metoclopramide HCl 10 MG/2 ML VIAL IVP PRN (07:30)
[2018-10-09] MEDS: Saccharomyces boulardii 250 MG CAP PO SCH (08:37)
[2018-10-09] MEDS: Apixaban 5 MG TAB PO SCH ×2 (08:37→20:18)
[2018-10-09] MEDS: Tamsulosin HCl 0.4 MG CAP PO SCH (08:37)
[2018-10-09] MEDS: Potassium Chloride 10 MEQ TAB PO SCH (08:37)
[2018-10-09] MEDS: Gabapentin 300 MG CAP PO SCH ×2 (08:37→20:17)
[2018-10-09] MEDS: Multivit, Therapeutic 1 TAB PO SCH (08:38)
[2018-10-09] MEDS: Famotidine 20 MG TAB PO SCH ×2 (08:38→20:17)
[2018-10-09] MEDS: Furosemide 20 MG TAB PO SCH (08:38)
[2018-10-09] MEDS: Sotalol HCl 80 MG TAB PO SCH ×2 (08:41→20:16)
[2018-10-09] MEDS ORDERED: COPPER PO SCH (09:00)
[2018-10-09] MEDS ORDERED: VIT A PO SCH (09:00)
[2018-10-09] MEDS ORDERED: Potassium Chloride 10 MEQ TAB PO SCH (09:00)
[2018-10-09] MEDS ORDERED: Non-Formulary Item 1 EACH (Sotalol Hcl [Sotalol] 120 MG) PO SCH (09:00)
[2018-10-09] MEDS ORDERED: VIT C PO SCH (09:00)
[2018-10-09] MEDS ORDERED: VIT E PO SCH (09:00)
[2018-10-09] MEDS ORDERED: Tamsulosin HCl 0.4 MG CAP PO SCH (09:00)
[2018-10-09] MEDS ORDERED: ZINC PO SCH (09:00)
[2018-10-09] MEDS ORDERED: [UNRECOGNIZED DRUG - OTHER] EA EYE SCH (09:00)
[2018-10-09] MEDS: Polyethylene Glycol OPTH DROP 15 ML BOT EA EYE SCH ×4 (09:35→20:16)
[2018-10-09] MEDS: Sodium Chloride 5% Opth 15 ML BOT EA EYE SCH ×3 (09:35→20:16)
[2018-10-09] MEDS: Vancomycin HCl 25 MG/ML Oral PO SCH ×3 (09:40→20:16)
[2018-10-09] MEDS: NS 0.9% w/ 40 MEQ KCL 1,000 ML IV SCH ×2 (09:41→22:26)
--- NOTE | 2018-10-09 12:15 | HP ---
PRIMARY CARE PHYSICIAN: Dr. Luke Hung. REASON FOR ADMISSION: C. diff colitis, C. diff diarrhea, and hypokalemia. 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 He was admitted in the hospital 1st time on 09/29/2018 and the patient underwent extended right hemicolectomy. Subsequently, he was discharged home. The patient came back in again in the emergency room on 10/03/2018 for nausea, vomiting, abdominal distention, and the patient was admitted for postoperative ileus. During that admission, he was admitted under Dr. Michelle, and Sound Team was consulted for medical comanagement. During that hospital course, the patient's hospital course was complicated by AFib with RVR, and Dr. Zapata and Dr. Howell were on the case. The patient was spontaneously converted to sinus rhythm and he did not require any ablation or any cardioversion. The patient was discharged home on 10/[address] Michelle. The patient was having a lot of diarrhea after discharge, and he called Dr. Michelle, who prescribed Flagyl. The patient just started taking Flagyl yesterday, but he was having severe recurrent lower abdominal pain along with diarrhea, that is why he decided to come to emergency room. He does not have any nausea, vomiting, hematemesis, melena, or hematochezia. He does not have any fever or chills. He denies any UTI symptoms. The patient does recall that he was given perioperatively antibiotic therapy as well as recently his primary care physician prescribed some antibiotic for Staph infection. The patient was evaluated in the emergency room and he was found with a leukocytosis with left shift. He has an x-ray of abdomen, which showed nonspecific bowel gas pattern and routine blood test also showed elevated troponin, though he was not complaining of any chest pain, and he was also found with hypokalemia. The patient had stool study done in the emergency room, which showed C diff positive and Campylobacter positive. The patient was overnight admitted as observation status to telemetry floor. REVIEW OF SYSTEMS: CONSTITUTIONAL: Negative for weight loss or gain, ability to conduct usual activities. SKIN: Negative for rash, itching. EYES: Negative for double vision, pain. ENT/MOUTH: Negative for nose bleeding, neck stiffness, pain, tenderness. CARDIOVASCULAR: Negative for palpitations, dyspnea on exertion, orthopnea. RESPIRATORY: Negative for shortness of breath, wheezing, cough, hemoptysis, fever or night sweats. GASTROINTESTINAL: Negative for poor appetite, abdominal pain, heartburn, nausea, vomiting, constipation, or diarrhea. GENITOURINARY: Negative for urgency, frequency, dysuria, nocturia. MUSCULOSKELETAL: Negative for pain, swelling. NEUROLOGIC/PSYCHIATRIC: Negative for anxiety, depression. ALLERGY/IMMUNOLOGIC: Negative for skin rash, bleeding tendency. Please see my HPI for pertinent positives and negatives. All other review of systems reviewed and negative except as mentioned in HPI. PAST MEDICAL HISTORY: 1. Hypertension. 2. Dyslipidemia. 3. Chronic low back pain. 4. Paroxysmal ventricular tachycardia. 5. Paroxysmal atrial fibrillation. 6. Chronic anticoagulation. 7. 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 8. Benign enlargement of prostate. PAST SURGICAL HISTORY: 1. Cardiac catheterization, done by Dr. Zapata. 2. The patient had ventricular tachycardia ablation at [facility]. 3. The patient underwent recent right hemicolectomy by Dr. Michelle. PAST PSYCHIATRIC HISTORY: Reviewed and negative. SOCIAL HISTORY: The patient is and lives at home with his . He drinks alcohol occasionally. He denies any smoking, he quit smoking in 1979. He denies any other illicit drug abuse. He is retired. FAMILY HISTORY: No strong family history of premature coronary artery disease, stroke, or cancer. ALLERGIES: NO KNOWN DRUG ALLERGIES. EMERGENCY ROOM COURSE: The patient was given vancomycin oral, sotalol 120 mg, potassium chloride 40 mEq p.o. and 40 mEq IV, IV fluid, morphine 4 mg, and Zofran 4 mg. CURRENT HOME MEDICATIONS: The patient is on following medications; 1. Eliquis 5 mg b.i.d. 2. Lasix 20 mg daily. 3. Gabapentin 300 mg b.i.d. 4. Flagyl 500 mg t.i.d. 5. Potassium chloride 10 mEq p.o. daily. 6. Pravastatin 40 mg p.o. nightly. 7. Flomax 0.4 mg p.o. daily. 8. Sotalol 120 mg b.i.d. 9. Ocuvite one tablet p.o. b.i.d. PHYSICAL EXAMINATION: VITAL SIGNS: On arrival; blood pressure 143/85, pulse 103, respiratory rate 17, temperature 98.1, and saturation 97% on room air. Weight 104.3 kg. GENERAL: The patient is currently alert and awake, in no obvious acute distress, on room air. HEAD: Normocephalic and atraumatic. EYES: Pupils round and reactive to light. Extraocular muscles intact. ENT: Oropharynx within normal limits. Moist mucous membranes. No oral lesion. No pharyngeal erythema. No exudate. NECK: Supple. No JVD. No thyromegaly. No carotid bruit. No jugular venous distention. LUNGS: Clear to auscultation without any rhonchi or rales. CARDIAC: S1 and S2 regular. No murmur. No gallop. No rub. ABDOMEN: Soft. Surgical site is clean and healthy. Bowel sounds present. No distention. No suprapubic tenderness. BACK: Unremarkable. No CVA tenderness. EXTREMITIES: Upper extremities; passive movement of all joints are normal. Lower extremities; no edema, no calf tenderness. Good distal pulsation. SKIN: No skin rash. HEMATOLOGICAL SYSTEM: No lymphadenopathy. NEUROLOGIC: Nonfocal examination. SIGNIFICANT LABORATORY DATA: EKG showing normal sinus rhythm, premature ventricular and atrial complexes, nonspecific ST-T changes. X-ray of abdomen showing pneumoperitoneum and nonspecific bowel gas pattern. No obstruction. CBC; WBC 15.2, hemoglobin 13.6, MCV 100, and platelets 206. BMP; sodium 138, potassium 2.7, chloride 103, carbon dioxide 27, anion gap 11, BUN 9, creatinine 0.72, glucose 147, and calcium 7.9. LFT; AST 20, ALT 26, alkaline phosphatase 50, and albumin 2.9. CK-MB 3.5 and troponin 0.057, 0.039 and then 0.034. ASSESSMENT AND PLAN: Impression: 1. Acute Clostridium difficile colitis with Clostridium difficile diarrhea. The patient will be treated with vancomycin orally 125 mg q.6 h. and Florastor 250 mg p.o. daily. 2. Campylobacter antigen positive. This is likely false positive. No need to treat. 3. Hypokalemia. The patient has been replaced potassium in the emergency room. We will continue with gentle IV fluid with potassium and we will repeat labs tomorrow. We will also check magnesium and phosphorus level tomorrow and replace electrolytes accordingly. 4. Severe sepsis. The patient has a sepsis with a leukocytosis with left shift, likely due to underlying Clostridium difficile colitis. He also has associated [id number] myocardial infarction type 2. 5. Type [address] elevation, likely due to underlying sepsis from Clostridium difficile colitis. 6. Chronic anticoagulation for underlying paroxysmal atrial fibrillation. We will continue Eliquis 5 mg p.o. b.i.d. 7. Chronic low back pain, currently well controlled. We will use p.r.n. basis pain medication. 8. Recent history of invasive adenocarcinoma of colon status post colectomy. Dr. Michelle will be consulted for his opinion as the patient was recently admitted for surgery. 9. Dyslipidemia. We will continue the patient's home medication, pravastatin 40 mg p.o. nightly. 10. Benign enlargement of prostate. We will continue Flomax 0.4 mg p.o. daily. 11. Hypertension. We will continue the patient's home medication if the blood pressure permits. 12. Paroxysmal atrial fibrillation. The patient is on chronic anticoagulation. We will continue sotalol 120 mg p.o. b.i.d. Currently, he is in sinus rhythm and rate controlled. 13. Deep venous thrombosis prophylaxis. The patient is already on chronic anticoagulation therapy with Eliquis. 14. Gastrointestinal prophylaxis. Pepcid 20 mg p.o. b.i.d. CODE STATUS: The patient is full code. The patient's is surrogate decision maker. DISPOSITION PLAN: Based on clinical course, we are expecting the patient's stay in hospital 24 to 48 hours. Depending upon clinical course, if the patient does not improve, then we will consider changing to inpatient status. While in hospital, we will continue PT, OT, and we will also continue gabapentin for his chronic low back pain. Job ID: [id number]
--- NOTE | 2018-10-09 12:32 | PDOC.GSPN ---
Surgery Progress Note: Subj - Subjective Patient reports: feels better Surgery Progress Note: Obj - Vital signs Vital signs: Vital Signs - Most Recent Temp Pulse Resp BP Pulse Ox 98.1 F 76 16 122/81 98 10/09/18 11:45 10/09/18 11:45 10/09/18 11:45 10/09/18 11:45 10/09/18 11:45 - Physical Exam General: no distress Respiratory: clear to auscultation Abdomen: soft, non tender, nondistended Wound: healing well Surgery Progress Note: Results - Labs Result Diagrams: 10/08/18 20:57 10/08/18 20:57 Lab results: Laboratory Results - last 24 hr 10/09/18 10/09/18 00:39 04:21 Troponin I 0.039 H 0.034 H Surgery Progress Note: A/P - Problem (1) C. difficile colitis Current Visit: Yes Status: Acute - Plan Plan: on vanc -likely home in next few days -f/u [place] next week -Dr. Baig covering weekend prn
[2018-10-09] MEDS: Atorvastatin Calcium 10 MG TAB PO SCH (20:17)
[2018-10-09] MEDS ORDERED: Non-Formulary Item 1 EACH (Pravastatin Sodium [Pravastatin Sodium] 40 MG) PO SCH (21:00)
[2018-10-10] MEDS: Vancomycin HCl 25 MG/ML Oral PO SCH ×4 (02:20→21:04)
[2018-10-10 05:53] LABS: #Basophils 0.1 thou/uL (0.0-0.2); #Eosinphils 0.3 thou/uL (0.0-0.7); #Lymphocytes 2.2 thou/uL (1.20-3.40); #Monocytes 1.6 thou/uL (0.11-0.59); #Neutrophils 9.6 thou/uL (1.40-6.50); %Basophils 0.6 % (0.0-1.0); %Eosinophils 2.2 % (0.0-10.0); %Lymphocytes 15.9 % (21.0-51.0); %Monocytes 11.4 % (0.0-10.0); %Neutrophils 69.9 % (42.0-75.0); Hemoglobin 13.5 g/dL (14.0-18.0); Mean Corpuscular HGB CONC 35.4 g/dL (32.0-36.0); Mean Corpuscular Hemoglobin 35.3 pg (27.0-31.0); Mean Corpuscular Volume 99.9 fL (78.0-98.0); Mean Platelet Volume 8.1 fL (7.4-10.4); Platelet Count 188 thou/uL (130-400); Red Blood Cell (RBC) Count 3.83 mill/uL (4.70-6.10); White Blood Cell (WBC) Count 13.8 thou/uL (4.8-10.8)
[2018-10-10 06:22] LABS: Phosphorus 2.2 mg/dL (2.3-4.7)
[2018-10-10 06:28] LABS: ALT (SGPT) 20 U/L (8-55); AST (SGOT) 14 U/L (5-34); Albumin 2.9 g/dL (3.4-4.8); Alkaline Phosphatase 47 U/L (40-150); Anion Gap 11 mmol/L (10-20); BUN (Urea Nitrogen) 5 mg/dL (8.4-25.7); Bilirubin, Total 0.9 mg/dL (0.2-1.2); Calc. Creatinine Clearance 138 mL/min (70-130); Calcium 8.1 mg/dL (7.8-10.44); Carbon Dioxide 23 mmol/L (23-31); Chloride 105 mmol/L (98-107); Estimated GFR-MDRD Greater than 90; Globulin 2.5 g/dL (2.4-3.5); Glucose 111 mg/dL (83-110); Magnesium 1.5 mg/dL (1.6-2.6); Potassium 3.3 mmol/L (3.5-5.1); Protein, Total 5.4 g/dL (5.8-8.1); Sodium 136 mmol/L (136-145)
[2018-10-10] MEDS ORDERED: Magnesium Sulfate 4 GM in Sodium Chloride 0.9% 250 ML 250 ML IVPB SCH (07:00)
[2018-10-10] MEDS ORDERED: Potassium Phosphate 30 MMOL in Sodium Chloride 0.9% 500 ML IVPB SCH (07:00)
[2018-10-10] MEDS: Sotalol HCl 80 MG TAB PO SCH ×2 (08:03→21:08)
[2018-10-10] MEDS: Gabapentin 300 MG CAP PO SCH ×2 (08:04→21:09)
[2018-10-10] MEDS: Famotidine 20 MG TAB PO SCH ×2 (08:04→21:10)
[2018-10-10] MEDS: Potassium Chloride 10 MEQ TAB PO SCH (08:04)
[2018-10-10] MEDS: Multivit, Therapeutic 1 TAB PO SCH (08:04)
[2018-10-10] MEDS: Apixaban 5 MG TAB PO SCH ×2 (08:04→21:07)
[2018-10-10] MEDS: Tamsulosin HCl 0.4 MG CAP PO SCH (08:04)
[2018-10-10] MEDS: Furosemide 20 MG TAB PO SCH (08:04)
[2018-10-10] MEDS: Saccharomyces boulardii 250 MG CAP PO SCH (08:04)
[2018-10-10] MEDS: Polyethylene Glycol OPTH DROP 15 ML BOT EA EYE SCH ×4 (08:05→21:07)
[2018-10-10] MEDS: Sodium Chloride 5% Opth 15 ML BOT EA EYE SCH ×3 (08:05→21:05)
--- NOTE | 2018-10-10 10:05 | PDOC.PN ---
- Subjective Encounter Start Date: 10/10/18 Encounter Start Time: 07:20 -: old records requested/rev pt has still many diarrhoea, no vomiting, no fever Patient seen and examined. No overnight events - Objective Resuscitation Status - Order Detail: 10/09/18 07:25 Resuscitation Status Routine Resuscitation Status: FULL: Full Resuscitation MAR Reviewed: Yes Vital Signs & Weight: Vital Signs (12 hours) Temp Pulse Resp BP BP Pulse Ox 10/10/18 08:03 82 10/10/18 07:57 98 F 82 16 128/76 96 10/10/18 02:20 98.5 F 78 18 136/71 98 10/10/18 00:00 98.2 F 63 16 127/76 98 Weight Admit Weight 227 lb 9.6 oz Weight 226 lb 3.2 oz I&O: 10/09/18 10/10/18 10/11/18 06:59 06:59 06:59 Intake Total 1034 2430 148 Balance 1034 2430 148 Result Diagrams: 10/10/18 04:52 10/10/18 04:52 EKG Reviewed by me: Yes Phys Exam - Physical Examination Constitutional: NAD HEENT: PERRLA, moist MMs, sclera anicteric Neck: no JVD, supple Respiratory: no wheezing, no rales, no rhonchi Cardiovascular: RRR, no significant murmur, no rub Gastrointestinal: soft, non-tender, no distention, positive bowel sounds surgical site clean, subjective discomfort Musculoskeletal: no edema, pulses present Neurological: non-focal, normal sensation, moves all 4 limbs Lymphatic: no nodes Psychiatric: normal affect, A&O x 3 Skin: no rash, normal turgor Dx/Plan (1) C. difficile colitis Status: Acute (2) Campylobacter antigen positive Code(s): A04.5 - CAMPYLOBACTER ENTERITIS Status: Acute Comment: likely false positive (3) Hypokalemia Code(s): E87.6 - HYPOKALEMIA Status: Acute (4) Hypomagnesemia Code(s): E83.42 - HYPOMAGNESEMIA Status: Acute (5) Hypophosphatemia Code(s): E83.39 - OTHER DISORDERS OF PHOSPHORUS METABOLISM Status: Acute (6) Severe sepsis Code(s): A41.9 - SEPSIS, UNSPECIFIED ORGANISM; R65.20 - SEVERE SEPSIS WITHOUT SEPTIC SHOCK Status: Acute Comment: due to c-diff colitis (7) Type [address] elevation Code(s): I21.A1 - MYOCARDIAL INFARCTION TYPE 2 Status: Acute Comment: due to demand ischemia (8) Chronic anticoagulation Code(s): Z79.01 - SIDE BOSS (CURRENT) USE OF ANTICOAGULANTS Status: Chronic (9) Chronic low back pain Code(s): M54.5 - LOW BACK PAIN; G89.29 - OTHER CHRONIC PAIN Status: Chronic (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 - MALIGNANT NEOPLASM OF COLON, UNSPECIFIED Status: Chronic Comment: s/p colectomy 09/29/18 (11) Dyslipidemia Code(s): E78.5 - HYPERLIPIDEMIA, UNSPECIFIED Status: Chronic (12) Hypertension Code(s): I10 - ESSENTIAL (PRIMARY) HYPERTENSION Status: Chronic Qualifiers: Hypertension type: essential hypertension Qualified Code(s): I10 - Essential (primary) hypertension Comment: (13) Macrocytosis Code(s): D75.89 - OTHER SPECIFIED DISEASES OF BLOOD AND BLOOD-FORMING ORGANS Status: Chronic (14) PAF (paroxysmal atrial fibrillation) Code(s): I48.0 - PAROXYSMAL ATRIAL FIBRILLATION Status: Chronic - Plan cont current plan of care, continue antibiotics * replace potassium phosphate * replace magnesium sulfate * continue oral vancomycin * medication reviewed as below * symptomatic treatment * repeat labs tomorrow * change to inpt status. Review of Systems - Review of Systems Constitutional: weakness. negative: fever, chills, sweats, malaise, other ENT: negative: Ear Pain, Ear Discharge, Nose Pain, Nose Discharge, Nose Congestion, Mouth Pain, Mouth Swelling, Throat Pain, Throat Swelling, Other Respiratory: negative: Cough, Dry, Shortness of Breath, Hemoptysis, SOB with Excertion, Pleuritic Pain, Sputum, Wheezing Cardiovascular: negative: chest pain, palpitations, orthopnea, paroxysmal nocturnal dyspnea, edema, light headedness, other Gastrointestinal: Diarrhea. negative: Nausea, Vomiting, Abdominal Pain, Constipation, Melena, Hematochezia, Other Genitourinary: negative: Dysuria, Frequency, Incontinence, Hematuria, Retention , Other Musculoskeletal: negative: Neck Pain, Shoulder Pain, Arm Pain, Back Pain, Hand Pain, Leg Pain, Foot Pain, Other Skin: negative: Rash, Lesions, Solomon, Bruising, Other - Medications/Allergies Allergies/Adverse Reactions: Allergies Allergy/AdvReac Type Severity Reaction Status Date / Time No Known Allergies Allergy Verified 09/23/18 12:14 Medications: Current Medications Acetaminophen (Tylenol) 650 mg PO Q4H PRN PRN Reason: Headache/Fever/Mild Pain (1-3) Hydrocodone Bitart/Acetaminophen ([place] 5/325) 1 tab PO Q4H PRN PRN Reason: Moderate Pain (4-6) Apixaban (Eliquis) 5 mg PO BID [facility] Last Admin: 10/10/18 08:04 Dose: 5 mg Atorvastatin Calcium (Lipitor) 10 mg PO HS [facility] Last Admin: 10/09/18 20:17 Dose: 10 mg Calcium Carbonate (Tums) 1,000 mg PO Q4H PRN PRN Reason: Heartburn or Indigestion Famotidine (Pepcid) 20 mg PO BID [facility] Last Admin: 10/10/18 08:04 Dose: 20 mg Furosemide (Lasix) 20 mg PO QAM [facility] Last Admin: 10/10/18 08:04 Dose: 20 mg Gabapentin (Neurontin) 300 mg PO BID [facility] Last Admin: 10/10/18 08:04 Dose: 300 mg Guaifenesin (Robitussin Sf) 200 mg PO Q4H PRN PRN Reason: Cough Hydralazine HCl (Apresoline) 10 mg SLOW IVP Q4H PRN PRN Reason: SBP > 180 and HR < 70 Potassium Phosphate 30 mmol/ (Sodium Chloride) 510 mls @ 63.75 mls/hr IVPB NOW [facility] Stop: 10/10/18 14:59 Last Admin: 10/10/18 09:13 Dose: 510 mls Potassium Chloride/Sodium Chloride (1/2 Ns W/Kcl 20 Meq) 1,000 mls @ 50 mls/hr IV .Q20H [facility] Loratadine (Claritin) 10 mg PO DAILYPRN PRN PRN Reason: Sinus Symptoms Metoclopramide HCl (Reglan) 10 mg IVP Q6H PRN PRN Reason: Nausea/Vomiting Multivitamins (Theragran) 1 tab PO DAILY [facility] Last Admin: 10/10/18 08:04 Dose: 1 tab Potassium Chloride (Klor-Con 10) 20 meq PO QAM [facility] Last Admin: 10/10/18 08:04 Dose: 20 meq Propylene Glycol (Systane Opth Drop 15ml Bot) 1 drop EA EYE QID [facility] Last Admin: 10/10/18 08:05 Dose: 1 drop Saccharomyces Boulardii (Florastor) 250 mg PO DAILY [facility] Last Admin: 10/10/18 08:04 Dose: 250 mg Senna/Docusate Sodium (Senokot S) 2 tab PO BID PRN PRN Reason: Constipation Sodium Chloride (Pierre-128 5% Oph Mag) 1 drop EA EYE TID [facility] Last Admin: 10/10/18 08:05 Dose: 1 drop Sodium Chloride ([place] Nasal [place] 0.65%) 0 ml EA NARE QIDPRN PRN PRN Reason: Nasal Congestion Sodium Chloride (Flush - Normal Saline) 10 ml IVF Q12HR [facility] Last Admin: 10/10/18 08:06 Dose: 10 ml Sodium Chloride (Flush - Normal Saline) 10 ml IVF PRN PRN PRN Reason: Saline Flush Sotalol HCl (Betapace) 120 mg PO BID [facility] Last Admin: 10/10/18 08:03 Dose: 120 mg Tamsulosin HCl (Flomax) 0.4 mg PO DAILY [facility] Last Admin: 10/10/18 08:04 Dose: 0.4 mg Throat Lozenges (Cepastat Lozenges) 1 daniel PO Q2H PRN PRN Reason: Sore Throat Vancomycin HCl (First Vancomycin) 125 mg PO 0200,0800,1400,2000 [facility] Last Admin: 10/10/18 09:28 Dose: 125 mg Zolpidem Tartrate (Ambien) 5 mg PO HSPRN PRN PRN Reason: Insomnia
[2018-10-10] MEDS: 1/2 NS w/KCL 20 mEq 1,000 ML IV SCH (21:04)
[2018-10-10] MEDS: Atorvastatin Calcium 10 MG TAB PO SCH (21:09)
[2018-10-11] MEDS: Vancomycin HCl 25 MG/ML Oral PO SCH ×4 (01:33→20:20)
[2018-10-11 05:19] LABS: #Basophils 0.1 thou/uL (0.0-0.2); #Eosinphils 0.3 thou/uL (0.0-0.7); #Lymphocytes 2.4 thou/uL (1.20-3.40); #Monocytes 1.5 thou/uL (0.11-0.59); #Neutrophils 7.8 thou/uL (1.40-6.50); %Basophils 0.5 % (0.0-1.0); %Eosinophils 2.4 % (0.0-10.0); %Lymphocytes 20.2 % (21.0-51.0); %Monocytes 12.1 % (0.0-10.0); %Neutrophils 64.7 % (42.0-75.0); Hemoglobin 13.7 g/dL (14.0-18.0); Mean Corpuscular HGB CONC 33.3 g/dL (32.0-36.0); Mean Corpuscular Hemoglobin 33.5 pg (27.0-31.0); Mean Platelet Volume 7.7 fL (7.4-10.4); Platelet Count 215 thou/uL (130-400); RBC Distribution Width 13.1 % (11.5-14.5); Red Blood Cell (RBC) Count 4.09 mill/uL (4.70-6.10)
[2018-10-11 05:27] LABS: Anion Gap 12 mmol/L (10-20); BUN (Urea Nitrogen) 5 mg/dL (8.4-25.7); Calc. Creatinine Clearance 130 mL/min (70-130); Calcium 8.3 mg/dL (7.8-10.44); Carbon Dioxide 23 mmol/L (23-31); Chloride 106 mmol/L (98-107); Estimated GFR-MDRD Greater than 90; Glucose 113 mg/dL (83-110); Magnesium 2.1 mg/dL (1.6-2.6); Phosphorus 2.7 mg/dL (2.3-4.7); Potassium 3.5 mmol/L (3.5-5.1); Sodium 137 mmol/L (136-145)
[2018-10-11] MEDS: 1/2 NS w/KCL 20 mEq 1,000 ML IV SCH ×2 (07:22→17:38)
[2018-10-11] MEDS: Furosemide 20 MG TAB PO SCH (09:32)
[2018-10-11] MEDS: Apixaban 5 MG TAB PO SCH ×2 (09:32→20:19)
[2018-10-11] MEDS: Famotidine 20 MG TAB PO SCH ×2 (09:32→20:19)
[2018-10-11] MEDS: Multivit, Therapeutic 1 TAB PO SCH (09:33)
[2018-10-11] MEDS: Gabapentin 300 MG CAP PO SCH ×2 (09:33→20:19)
[2018-10-11] MEDS: Saccharomyces boulardii 250 MG CAP PO SCH (09:33)
[2018-10-11] MEDS: Tamsulosin HCl 0.4 MG CAP PO SCH (09:33)
[2018-10-11] MEDS: Potassium Chloride 10 MEQ TAB PO SCH (09:33)
[2018-10-11] MEDS: Sotalol HCl 80 MG TAB PO SCH ×2 (09:33→20:17)
[2018-10-11] MEDS: Polyethylene Glycol OPTH DROP 15 ML BOT EA EYE SCH ×4 (09:34→20:23)
[2018-10-11] MEDS: Sodium Chloride 5% Opth 15 ML BOT EA EYE SCH ×3 (09:34→20:23)
--- NOTE | 2018-10-11 09:53 | PDOC.PN ---
- Subjective Encounter Start Date: 10/11/18 Encounter Start Time: 08:00 pt still c/o lot of diarrhoea ( 9 times), no fever, no abdominal pain Patient seen and examined. No overnight events - Objective Resuscitation Status - Order Detail: 10/09/18 07:25 Resuscitation Status Routine Resuscitation Status: FULL: Full Resuscitation MAR Reviewed: Yes Vital Signs & Weight: Vital Signs (12 hours) Temp Pulse Resp BP Pulse Ox 10/11/18 07:23 97.9 F 66 14 122/75 95 10/11/18 03:19 97.7 F 72 20 123/75 95 Weight Admit Weight 227 lb 9.6 oz Weight 223 lb 6.4 oz I&O: 10/10/18 10/11/18 10/12/18 06:59 06:59 06:59 Intake Total 2430 2588 Balance 2430 2588 Result Diagrams: 10/11/18 04:35 10/11/18 04:35 EKG Reviewed by me: Yes Phys Exam - Physical Examination Constitutional: NAD HEENT: PERRLA, moist MMs, sclera anicteric Neck: no JVD, supple Respiratory: no wheezing, no rales, no rhonchi Cardiovascular: RRR, no significant murmur, no rub Gastrointestinal: soft, non-tender, no distention, positive bowel sounds Musculoskeletal: no edema, pulses present Neurological: non-focal, normal sensation, moves all 4 limbs Lymphatic: no nodes Psychiatric: normal affect, A&O x 3 Skin: no rash, normal turgor Dx/Plan (1) C. difficile colitis Status: Acute (2) Campylobacter antigen positive Code(s): A04.5 - CAMPYLOBACTER ENTERITIS Status: Acute Comment: likely false positive (3) Hypokalemia Code(s): E87.6 - HYPOKALEMIA Status: Acute (4) Hypomagnesemia Code(s): E83.42 - HYPOMAGNESEMIA Status: Acute (5) Hypophosphatemia Code(s): E83.39 - OTHER DISORDERS OF PHOSPHORUS METABOLISM Status: Acute (6) Severe sepsis Code(s): A41.9 - SEPSIS, UNSPECIFIED ORGANISM; R65.20 - SEVERE SEPSIS WITHOUT SEPTIC SHOCK Status: Acute Comment: due to c-diff colitis (7) Type [address] elevation Code(s): I21.A1 - MYOCARDIAL INFARCTION TYPE 2 Status: Acute Comment: due to demand ischemia (8) Chronic anticoagulation Code(s): Z79.01 - DIRECTOR PAID MEDIA (CURRENT) USE OF ANTICOAGULANTS Status: Chronic (9) Chronic low back pain Code(s): M54.5 - LOW BACK PAIN; G89.29 - OTHER CHRONIC PAIN Status: Chronic (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 - MALIGNANT NEOPLASM OF COLON, UNSPECIFIED Status: Chronic Comment: s/p colectomy 09/29/18 (11) Dyslipidemia Code(s): E78.5 - HYPERLIPIDEMIA, UNSPECIFIED Status: Chronic (12) Hypertension Code(s): I10 - ESSENTIAL (PRIMARY) HYPERTENSION Status: Chronic Qualifiers: Hypertension type: essential hypertension Qualified Code(s): I10 - Essential (primary) hypertension Comment: (13) Macrocytosis Code(s): D75.89 - OTHER SPECIFIED DISEASES OF BLOOD AND BLOOD-FORMING ORGANS Status: Chronic (14) PAF (paroxysmal atrial fibrillation) Code(s): I48.0 - PAROXYSMAL ATRIAL FIBRILLATION Status: Chronic - Plan cont current plan of care, continue antibiotics * medication reviewed as below * symptomatic treatment * continue gentle fluid * continue PO vancomycin * repeat labs tomorrow * expecting discharge soon. Review of Systems - Review of Systems Eyes: negative: Pain, Vision Change, Conjunctivae Inflammation, Eyelid Inflammation, Redness, Other ENT: negative: Ear Pain, Ear Discharge, Nose Pain, Nose Discharge, Nose Congestion, Mouth Pain, Mouth Swelling, Throat Pain, Throat Swelling, Other Respiratory: negative: Cough, Dry, Shortness of Breath, Hemoptysis, SOB with Excertion, Pleuritic Pain, Sputum, Wheezing Cardiovascular: negative: chest pain, palpitations, orthopnea, paroxysmal nocturnal dyspnea, edema, light headedness, other Gastrointestinal: Diarrhea. negative: Nausea, Vomiting, Abdominal Pain, Constipation, Melena, Hematochezia, Other Genitourinary: negative: Dysuria, Frequency, Incontinence, Hematuria, Retention , Other Musculoskeletal: negative: Neck Pain, Shoulder Pain, Arm Pain, Back Pain, Hand Pain, Leg Pain, Foot Pain, Other Skin: negative: Rash, Lesions, Solomon, Bruising, Other - Medications/Allergies Allergies/Adverse Reactions: Allergies Allergy/AdvReac Type Severity Reaction Status Date / Time No Known Allergies Allergy Verified 09/23/18 12:14 Medications: Current Medications Acetaminophen (Tylenol) 650 mg PO Q4H PRN PRN Reason: Headache/Fever/Mild Pain (1-3) Hydrocodone Bitart/Acetaminophen ([place] 5/325) 1 tab PO Q4H PRN PRN Reason: Moderate Pain (4-6) Apixaban (Eliquis) 5 mg PO BID [facility] Last Admin: 10/11/18 09:32 Dose: 5 mg Atorvastatin Calcium (Lipitor) 10 mg PO HS [facility] Last Admin: 10/10/18 21:09 Dose: 10 mg Calcium Carbonate (Tums) 1,000 mg PO Q4H PRN PRN Reason: Heartburn or Indigestion Famotidine (Pepcid) 20 mg PO BID [facility] Last Admin: 10/11/18 09:32 Dose: 20 mg Furosemide (Lasix) 20 mg PO QAM [facility] Last Admin: 10/11/18 09:32 Dose: 20 mg Gabapentin (Neurontin) 300 mg PO BID [facility] Last Admin: 10/11/18 09:33 Dose: 300 mg Guaifenesin (Robitussin Sf) 200 mg PO Q4H PRN PRN Reason: Cough Hydralazine HCl (Apresoline) 10 mg SLOW IVP Q4H PRN PRN Reason: SBP > 180 and HR < 70 Potassium Chloride/Sodium Chloride (1/2 Ns W/Kcl 20 Meq) 1,000 mls @ 50 mls/hr IV .Q20H [facility] Last Admin: 10/11/18 07:22 Dose: Not Given Loratadine (Claritin) 10 mg PO DAILYPRN PRN PRN Reason: Sinus Symptoms Metoclopramide HCl (Reglan) 10 mg IVP Q6H PRN PRN Reason: Nausea/Vomiting Multivitamins (Theragran) 1 tab PO DAILY [facility] Last Admin: 10/11/18 09:33 Dose: 1 tab Potassium Chloride (Klor-Con 10) 20 meq PO QAM [facility] Last Admin: 10/11/18 09:33 Dose: 20 meq Propylene Glycol (Systane Opth Drop 15ml Bot) 1 drop EA EYE QID [facility] Last Admin: 10/11/18 09:34 Dose: 1 drop Saccharomyces Boulardii (Florastor) 250 mg PO DAILY [facility] Last Admin: 10/11/18 09:33 Dose: 250 mg Senna/Docusate Sodium (Senokot S) 2 tab PO BID PRN PRN Reason: Constipation Sodium Chloride (Pierre-128 5% Oph Mag) 1 drop EA EYE TID [facility] Last Admin: 10/11/18 09:34 Dose: 1 drop Sodium Chloride ([place] Nasal [place] 0.65%) 0 ml EA NARE QIDPRN PRN PRN Reason: Nasal Congestion Sodium Chloride (Flush - Normal Saline) 10 ml IVF Q12HR [facility] Last Admin: 10/11/18 09:34 Dose: Not Given Sodium Chloride (Flush - Normal Saline) 10 ml IVF PRN PRN PRN Reason: Saline Flush Sotalol HCl (Betapace) 120 mg PO BID [facility] Last Admin: 10/11/18 09:33 Dose: 120 mg Tamsulosin HCl (Flomax) 0.4 mg PO DAILY [facility] Last Admin: 10/11/18 09:33 Dose: 0.4 mg Throat Lozenges (Cepastat Lozenges) 1 daniel PO Q2H PRN PRN Reason: Sore Throat Vancomycin HCl (First Vancomycin) 125 mg PO 0200,0800,1400,2000 [facility] Last Admin: 10/11/18 09:32 Dose: 125 mg Zolpidem Tartrate (Ambien) 5 mg PO HSPRN PRN PRN Reason: Insomnia
[2018-10-11] MEDS: Atorvastatin Calcium 10 MG TAB PO SCH (20:19)
[2018-10-12] MEDS: Vancomycin HCl 25 MG/ML Oral PO SCH ×4 (01:39→19:46)
[2018-10-12] MEDS: Sotalol HCl 80 MG TAB PO SCH ×2 (08:49→19:47)
[2018-10-12] MEDS: Multivit, Therapeutic 1 TAB PO SCH (08:50)
[2018-10-12] MEDS: Famotidine 20 MG TAB PO SCH ×2 (08:50→19:48)
[2018-10-12] MEDS: Potassium Chloride 10 MEQ TAB PO SCH (08:50)
[2018-10-12] MEDS: Furosemide 20 MG TAB PO SCH (08:50)
[2018-10-12] MEDS: Apixaban 5 MG TAB PO SCH ×2 (08:50→19:47)
[2018-10-12] MEDS: Tamsulosin HCl 0.4 MG CAP PO SCH (08:50)
[2018-10-12] MEDS: Saccharomyces boulardii 250 MG CAP PO SCH (08:50)
[2018-10-12] MEDS: Gabapentin 300 MG CAP PO SCH ×2 (08:50→19:48)
[2018-10-12] MEDS: Sodium Chloride 5% Opth 15 ML BOT EA EYE SCH ×3 (08:51→19:48)
[2018-10-12] MEDS: Polyethylene Glycol OPTH DROP 15 ML BOT EA EYE SCH ×4 (08:51→19:49)
--- NOTE | 2018-10-12 14:39 | PDOC.PN ---
- Subjective Encounter Start Date: 10/12/18 Encounter Start Time: 11:45 Subjective: pt up in bed still has frequent bm, however has improved - Objective Resuscitation Status - Order Detail: 10/09/18 07:25 Resuscitation Status Routine Resuscitation Status: FULL: Full Resuscitation Vital Signs & Weight: Vital Signs (12 hours) Temp Pulse Resp BP BP Pulse Ox 10/12/18 12:56 97.9 F 89 18 123/62 10/12/18 08:49 79 10/12/18 07:20 98.2 F 88 18 134/71 88 L 10/12/18 04:00 98.2 F 79 17 100/60 96 Weight Admit Weight 227 lb 9.6 oz Weight 220 lb 8 oz I&O: 10/11/18 10/12/18 10/13/18 06:59 06:59 06:59 Intake Total 2588 2277 Balance 2588 2277 Result Diagrams: 10/11/18 04:35 10/11/18 04:35 Phys Exam - Physical Examination Respiratory: no wheezing, no rales, no rhonchi, wheezing present, clear to auscultation bilateral Cardiovascular: RRR, no significant murmur, no rub, gallop, irregular Gastrointestinal: soft, non-tender, no distention, positive bowel sounds Musculoskeletal: no edema, pulses present, edema present Dx/Plan (1) C. difficile colitis Status: Acute (2) Campylobacter antigen positive Code(s): A04.5 - CAMPYLOBACTER ENTERITIS Status: Acute Comment: likely false positive (3) Hypokalemia Code(s): E87.6 - HYPOKALEMIA Status: Acute (4) Hypomagnesemia Code(s): E83.42 - HYPOMAGNESEMIA Status: Acute (5) Hypophosphatemia Code(s): E83.39 - OTHER DISORDERS OF PHOSPHORUS METABOLISM Status: Acute - Plan per pt his stool is starting to form but still is going frequently -: will continue oral vanco. 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 -: will check labs in am * . Review of Systems - Review of Systems Respiratory: negative: Cough, Dry, Shortness of Breath, Hemoptysis, SOB with Excertion, Pleuritic Pain, Sputum, Wheezing Cardiovascular: negative: chest pain, palpitations, orthopnea, paroxysmal nocturnal dyspnea, edema, light headedness, other Gastrointestinal: Diarrhea. negative: Nausea, Vomiting, Abdominal Pain, Constipation, Melena, Hematochezia, Other - Medications/Allergies Allergies/Adverse Reactions: Allergies Allergy/AdvReac Type Severity Reaction Status Date / Time No Known Allergies Allergy Verified 09/23/18 12:14 Medications: Current Medications Acetaminophen (Tylenol) 650 mg PO Q4H PRN PRN Reason: Headache/Fever/Mild Pain (1-3) Hydrocodone Bitart/Acetaminophen ([place] 5/325) 1 tab PO Q4H PRN PRN Reason: Moderate Pain (4-6) Apixaban (Eliquis) 5 mg PO BID [facility] Last Admin: 10/12/18 08:50 Dose: 5 mg Atorvastatin Calcium (Lipitor) 10 mg PO HS [facility] Last Admin: 10/11/18 20:19 Dose: 10 mg Calcium Carbonate (Tums) 1,000 mg PO Q4H PRN PRN Reason: Heartburn or Indigestion Famotidine (Pepcid) 20 mg PO BID [facility] Last Admin: 10/12/18 08:50 Dose: 20 mg [facility] ([facility]ix) [facility] [place] Last Admin: 10/12/18 08:50 Dose: 20 mg Gabapentin (Neurontin) 300 mg PO BID [facility] Last Admin: 10/12/18 08:50 Dose: 300 mg Guaifenesin (Robitussin Sf) 200 mg PO Q4H PRN PRN Reason: Cough Hydralazine HCl (Apresoline) 10 mg SLOW IVP Q4H PRN PRN Reason: SBP > 180 and HR < 70 Potassium Chloride/Sodium Chloride (1/2 Ns W/Kcl 20 Meq) 1,000 mls @ 50 mls/hr IV .Q20H [facility] Last Admin: 10/11/18 17:38 Dose: 1,000 mls Loratadine (Claritin) 10 mg PO DAILYPRN PRN PRN Reason: Sinus Symptoms Metoclopramide HCl (Reglan) 10 mg IVP Q6H PRN PRN Reason: Nausea/Vomiting Multivitamins (Theragran) 1 tab PO DAILY [facility] Last Admin: 10/12/18 08:50 Dose: 1 tab Potassium Chloride (Klor-Con 10) 20 meq PO QAM [facility] Last Admin: 10/12/18 08:50 Dose: 20 meq Propylene Glycol (Systane Opth Drop 15ml Bot) 1 drop EA EYE QID [facility] Last Admin: 10/12/18 08:51 Dose: 1 drop Saccharomyces Boulardii (Florastor) 250 mg PO DAILY [facility] Last Admin: 10/12/18 08:50 Dose: 250 mg Senna/Docusate Sodium (Senokot S) 2 tab PO BID PRN PRN Reason: Constipation Sodium Chloride (Pierre-128 5% Oph Mag) 1 drop EA EYE TID [facility] Last Admin: 10/12/18 08:51 Dose: 1 drop Sodium Chloride ([place] Nasal [place] 0.65%) 0 ml EA NARE QIDPRN PRN PRN Reason: Nasal Congestion Sodium Chloride (Flush - Normal Saline) 10 ml IVF Q12HR [facility] Last Admin: 10/12/18 09:21 Dose: 10 ml Sodium Chloride (Flush - Normal Saline) 10 ml IVF PRN PRN PRN Reason: Saline Flush Sotalol HCl (Betapace) 120 mg PO BID [facility] Last Admin: 10/12/18 08:49 Dose: 120 mg Tamsulosin HCl (Flomax) 0.4 mg PO DAILY [facility] Last Admin: 10/12/18 08:50 Dose: 0.4 mg Throat Lozenges (Cepastat Lozenges) 1 daniel PO Q2H PRN PRN Reason: Sore Throat Vancomycin HCl (First Vancomycin) 125 mg PO 0200,0800,1400,2000 [facility] Last Admin: 10/12/18 08:50 Dose: 125 mg Zolpidem Tartrate (Ambien) 5 mg PO HSPRN PRN PRN Reason: Insomnia
[2018-10-12] MEDS: 1/2 NS w/KCL 20 mEq 1,000 ML IV SCH (15:08)
[2018-10-12] MEDS: Atorvastatin Calcium 10 MG TAB PO SCH (19:47)
[2018-10-13] MEDS: Vancomycin HCl 25 MG/ML Oral PO SCH ×2 (02:20→08:10)
[2018-10-13 06:26] LABS: #Basophils 0.1 thou/uL (0.0-0.2); #Eosinphils 0.3 thou/uL (0.0-0.7); #Lymphocytes 2.1 thou/uL (1.20-3.40); #Monocytes 1.2 thou/uL (0.11-0.59); #Neutrophils 8.1 thou/uL (1.40-6.50); %Basophils 0.4 % (0.0-1.0); %Eosinophils 2.6 % (0.0-10.0); %Monocytes 10.1 % (0.0-10.0); %Neutrophils 68.8 % (42.0-75.0); Hemoglobin 13.5 g/dL (14.0-18.0); Mean Corpuscular HGB CONC 32.5 g/dL (32.0-36.0); Mean Corpuscular Hemoglobin 32.9 pg (27.0-31.0); Mean Platelet Volume 7.6 fL (7.4-10.4); Platelet Count 246 thou/uL (130-400); RBC Distribution Width 12.9 % (11.5-14.5); Red Blood Cell (RBC) Count 4.09 mill/uL (4.70-6.10); White Blood Cell (WBC) Count 11.8 thou/uL (4.8-10.8)
[2018-10-13 06:53] LABS: ALT (SGPT) 22 U/L (8-55); AST (SGOT) 17 U/L (5-34); Albumin 3.2 g/dL (3.4-4.8); Alkaline Phosphatase 56 U/L (40-150); Anion Gap 12 mmol/L (10-20); BUN (Urea Nitrogen) 7 mg/dL (8.4-25.7); Bilirubin, Total 0.7 mg/dL (0.2-1.2); Calc. Creatinine Clearance 119 mL/min (70-130); Calcium 8.7 mg/dL (7.8-10.44); Carbon Dioxide 23 mmol/L (23-31); Chloride 104 mmol/L (98-107); Estimated GFR-MDRD Greater than 90; Globulin 3.2 g/dL (2.4-3.5); Glucose 124 mg/dL (83-110); Phosphorus 3.7 mg/dL (2.3-4.7); Potassium 3.9 mmol/L (3.5-5.1); Protein, Total 6.4 g/dL (5.8-8.1); Sodium 135 mmol/L (136-145)
[2018-10-13] MEDS: Sotalol HCl 80 MG TAB PO SCH (08:10)
[2018-10-13] MEDS: Apixaban 5 MG TAB PO SCH (08:10)
[2018-10-13] MEDS: Gabapentin 300 MG CAP PO SCH (08:10)
[2018-10-13] MEDS: Famotidine 20 MG TAB PO SCH (08:11)
[2018-10-13] MEDS: Potassium Chloride 10 MEQ TAB PO SCH (08:11)
[2018-10-13] MEDS: Multivit, Therapeutic 1 TAB PO SCH (08:11)
[2018-10-13] MEDS: Saccharomyces boulardii 250 MG CAP PO SCH (08:11)
[2018-10-13] MEDS: Tamsulosin HCl 0.4 MG CAP PO SCH (08:11)
[2018-10-13] MEDS: Polyethylene Glycol OPTH DROP 15 ML BOT EA EYE SCH (08:11)
[2018-10-13] MEDS: Furosemide 20 MG TAB PO SCH (08:11)
[2018-10-13] MEDS: Sodium Chloride 5% Opth 15 ML BOT EA EYE SCH (08:12)
--- NOTE | 2018-10-13 10:45 | PDOC.PN ---
- Subjective Encounter Start Date: 10/13/18 Encounter Start Time: 07:50 -: old records requested/rev Patient seen and examined. No new complaints. No overnight events - Objective Resuscitation Status - Order Detail: 10/09/18 07:25 Resuscitation Status Routine Resuscitation Status: FULL: Full Resuscitation MAR Reviewed: Yes Vital Signs & Weight: Vital Signs (12 hours) Temp Pulse Resp BP Pulse Ox 10/13/18 08:11 100 10/13/18 07:05 98.4 F 77 16 109/75 100 10/13/18 03:59 99.0 F 76 16 116/56 L 97 Weight Admit Weight 227 lb 9.6 oz Weight 220 lb 8 oz I&O: 10/12/18 10/13/18 10/14/18 06:59 06:59 06:59 Intake Total 2277 3200 Output Total 980 Balance 2277 2220 Result Diagrams: 10/13/18 05:35 10/13/18 05:35 EKG Reviewed by me: Yes Phys Exam - Physical Examination Constitutional: NAD HEENT: PERRLA, moist MMs, sclera anicteric Neck: no JVD, supple Respiratory: no wheezing, no rales, no rhonchi Cardiovascular: RRR, no significant murmur, no rub Gastrointestinal: soft, non-tender, no distention, positive bowel sounds Musculoskeletal: no edema, pulses present Neurological: non-focal, normal sensation, moves all 4 limbs Psychiatric: normal affect, A&O x 3 Skin: no rash, normal turgor Dx/Plan (1) C. difficile colitis Status: Acute (2) Campylobacter antigen positive Code(s): A04.5 - CAMPYLOBACTER ENTERITIS Status: Acute Comment: likely false positive (3) Hypokalemia Code(s): E87.6 - HYPOKALEMIA Status: Acute (4) Hypomagnesemia Code(s): E83.42 - HYPOMAGNESEMIA Status: Acute (5) Hypophosphatemia Code(s): E83.39 - OTHER DISORDERS OF PHOSPHORUS METABOLISM Status: Acute (6) Severe sepsis Code(s): A41.9 - SEPSIS, UNSPECIFIED ORGANISM; R65.20 - SEVERE SEPSIS WITHOUT SEPTIC SHOCK Status: Acute Comment: due to c-diff colitis (7) Type [address] elevation Code(s): I21.A1 - MYOCARDIAL INFARCTION TYPE 2 Status: Acute Comment: due to demand ischemia (8) Chronic anticoagulation Code(s): Z79.01 - ALF (CURRENT) USE OF ANTICOAGULANTS Status: Chronic (9) Chronic low back pain Code(s): M54.5 - LOW BACK PAIN; G89.29 - OTHER CHRONIC PAIN Status: Chronic (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 - MALIGNANT NEOPLASM OF COLON, UNSPECIFIED Status: Chronic Comment: s/p colectomy 09/29/18 (11) Dyslipidemia Code(s): E78.5 - HYPERLIPIDEMIA, UNSPECIFIED Status: Chronic (12) Hypertension Code(s): I10 - ESSENTIAL (PRIMARY) HYPERTENSION Status: Chronic Qualifiers: Hypertension type: essential hypertension Qualified Code(s): I10 - Essential (primary) hypertension Comment: (13) Macrocytosis Code(s): D75.89 - OTHER SPECIFIED DISEASES OF BLOOD AND BLOOD-FORMING ORGANS Status: Chronic (14) PAF (paroxysmal atrial fibrillation) Code(s): I48.0 - PAROXYSMAL ATRIAL FIBRILLATION Status: Chronic - Plan cont current plan of care, continue antibiotics * medication reviewed as below * symptomatic treatment * see discharge summery. Review of Systems - Review of Systems ENT: negative: Ear Pain, Ear Discharge, Nose Pain, Nose Discharge, Nose Congestion, Mouth Pain, Mouth Swelling, Throat Pain, Throat Swelling, Other Respiratory: negative: Cough, Dry, Shortness of Breath, Hemoptysis, SOB with Excertion, Pleuritic Pain, Sputum, Wheezing Cardiovascular: negative: chest pain, palpitations, orthopnea, paroxysmal nocturnal dyspnea, edema, light headedness, other Gastrointestinal: negative: Nausea, Vomiting, Abdominal Pain, Diarrhea, Constipation, Melena, Hematochezia, Other Genitourinary: negative: Dysuria, Frequency, Incontinence, Hematuria, Retention , Other Musculoskeletal: negative: Neck Pain, Shoulder Pain, Arm Pain, Back Pain, Hand Pain, Leg Pain, Foot Pain, Other - Medications/Allergies Allergies/Adverse Reactions: Allergies Allergy/AdvReac Type Severity Reaction Status Date / Time No Known Allergies Allergy Verified 09/23/18 12:14 Medications: Current Medications Acetaminophen (Tylenol) 650 mg PO Q4H PRN PRN Reason: Headache/Fever/Mild Pain (1-3) Hydrocodone Bitart/Acetaminophen ([place]win 5/325) 1 tab PO Q4H PRN PRN Reason: Moderate Pain (4-6) Apixaban (Eliquis) 5 mg PO BID [facility] Last Admin: 10/13/18 08:10 Dose: 5 mg Atorvastatin Calcium (Lipitor) 10 mg PO HS [facility] Last Admin: 10/12/18 19:47 Dose: 10 mg Calcium Carbonate (Tums) 1,000 mg PO Q4H PRN PRN Reason: Heartburn or Indigestion Famotidine (Pepcid) 20 mg PO BID [facility] Last Admin: 10/13/18 08:11 Dose: 20 mg Furosemide (Lasix) 20 mg PO QAM [facility] Last Admin: 10/13/18 08:11 Dose: 20 mg Gabapentin (Neurontin) 300 mg PO BID [facility] Last Admin: 10/13/18 08:10 Dose: 300 mg Guaifenesin (Robitussin Sf) 200 mg PO Q4H PRN PRN Reason: Cough Hydralazine HCl (Apresoline) 10 mg SLOW IVP Q4H PRN PRN Reason: SBP > 180 and HR < 70 Potassium Chloride/Sodium Chloride (1/2 Ns W/Kcl 20 Meq) 1,000 mls @ 50 mls/hr IV .Q20H [facility] Last Admin: 10/12/18 15:08 Dose: 1,000 mls Loratadine (Claritin) 10 mg PO DAILYPRN PRN PRN Reason: Sinus Symptoms Metoclopramide HCl (Reglan) 10 mg IVP Q6H PRN PRN Reason: Nausea/Vomiting Multivitamins (Theragran) 1 tab PO DAILY [facility] Last Admin: 10/13/18 08:11 Dose: 1 tab Potassium Chloride (Klor-Con 10) 20 meq PO QAM [facility] Last Admin: 10/13/18 08:11 Dose: 20 meq Propylene Glycol (Systane Opth Drop 15ml Bot) 1 drop EA EYE QID [facility] Last Admin: 10/13/18 08:11 Dose: 1 drop Saccharomyces Boulardii (Florastor) 250 mg PO DAILY [facility] Last Admin: 10/13/18 08:11 Dose: 250 mg Senna/Docusate Sodium (Senokot S) 2 tab PO BID PRN PRN Reason: Constipation Sodium Chloride (Pierre-128 5% Oph Mag) 1 drop EA EYE TID [facility] Last Admin: 10/13/18 08:12 Dose: 1 drop Sodium Chloride ([place] Nasal [place] 0.65%) 0 ml EA NARE QIDPRN PRN PRN Reason: Nasal Congestion Sodium Chloride (Flush - Normal Saline) 10 ml IVF Q12HR [facility] Last Admin: 10/13/18 08:11 Dose: 10 ml Sodium Chloride (Flush - Normal Saline) 10 ml IVF PRN PRN PRN Reason: Saline Flush Sotalol HCl (Betapace) 120 mg PO BID [facility] Last Admin: 10/13/18 08:10 Dose: 120 mg Tamsulosin HCl (Flomax) 0.4 mg PO DAILY [facility] Last Admin: 10/13/18 08:11 Dose: 0.4 mg Throat Lozenges (Cepastat Lozenges) 1 daniel PO Q2H PRN PRN Reason: Sore Throat Vancomycin HCl (First Vancomycin) 125 mg PO 0200,0800,1400,2000 [facility] Last Admin: 10/13/18 08:10 Dose: 125 mg Zolpidem Tartrate (Ambien) 5 mg PO HSPRN PRN PRN Reason: Insomnia
--- NOTE | 2018-10-13 12:27 | DIS ---
DATE OF ADMISSION: 10/10/2018 DATE OF DISCHARGE: 10/13/2018 DISCHARGE DISPOSITION: Home. PRIMARY DISCHARGE DIAGNOSES: Clostridium difficile colitis, false positive Campylobacter antigen, hypokalemia, hypomagnesemia, hypophosphatemia, sepsis, and type [address] elevation. SECONDARY DISCHARGE DIAGNOSES: Paroxysmal atrial fibrillation, macrocytosis, hypertension, dyslipidemia, history of colon adenocarcinoma required to have right hemicolectomy, chronic low back pain, and chronic anticoagulation. PRIMARY PROCEDURE/OPERATION: None. RADIOLOGICAL INVESTIGATION: X-ray abdomen. SIGNIFICANT LABORATORY DATA: Hemoglobin 13.5. Creatinine 0.71. DISCHARGE MEDICATIONS: 1. Vancomycin 125 mg p.o. q.i.d. for 10 more days. 2. Florastor 250 mg p.o. b.i.d. 3. Sotalol 120 mg p.o. b.i.d. 4. Ocuvite one tablet daily. 5. Flomax 0.4 mg daily. 6. Pravastatin 40 mg p.o. at bedtime. 7. Potassium chloride 10 mEq p.o. daily. 8. Flagyl 500 mg p.o. t.i.d. 9. Gabapentin 300 mg p.o. b.i.d. 10. Lasix 20 mg daily. 11. Eliquis 5 mg p.o. b.i.d. CONTRAINDICATION: None. CODE STATUS: Full code. INPATIENT PAYROLL ACCOUNTING SPECIALIST: Dr. Michelle was consulted while in hospital. TEST RESULT PENDING ON DISCHARGE: None. ALLERGIES: NO KNOWN DRUG ALLERGY. DISCHARGE PLAN: Posthospital, the patient is instructed to follow up with primary care physician in one week. The patient will follow up with Dr. Michelle as instructed. HOSPITAL COURSE: A 78-year-old male, who was admitted by me, please see my HPI for further details. The patient was having diarrhea. He was having sepsis criteria. He was positive for C. diff. He was treated with the oral vancomycin and Florastor while in hospital. He had abnormal electrolytes secondary to diarrhea, which was replaced while in hospital. He had sepsis criteria, which was improving by the time of discharge. The patient's diarrhea frequency is also improving. The patient will need total 14 days of treatment and by the end of treatment, if still has diarrhea, then the patient will need repeat testing and depending upon that result, the patient may need longer course or tapering doses of vancomycin. The patient will follow with Dr. Michelle and primary care physician. The patient is seen and examined at bedside today. He is clinically asymptomatic. He does not have any nausea or vomiting, and he is tolerating p.o. well, ambulatory. The patient is seen and examined at bedside today. Please see my progress note from today for further detail. All new medication prescription given to him. Job ID: [id number]
[2018-10-13 12:56] VITALS: BP 125/83; TEMP 98.1
== END 2018-10-13 13:02 | disposition home or self-care (01) | DRG 871 ==
LOC: ERS 20:34 → 2SW 10-09 00:56 → OBSVTOIN 10-10 09:45 → 2NO 10-10 14:21
PROVIDERS: ADMIT Hospitalist; ATTEND Hospitalist
DX: A41.4 Sepsis due to anaerobes (principal); I21.A1 Myocardial infarction type 2; A04.72 Enterocolitis due to Clostridium difficile, not specified as recurrent; E87.6 Hypokalemia; E78.00 Pure hypercholesterolemia, unspecified; M54.5 Low back pain; R65.20 Severe sepsis without septic shock; I10 Essential (primary) hypertension; E78.5 Hyperlipidemia, unspecified; E83.42 Hypomagnesemia; E83.39 Other disorders of phosphorus metabolism; I48.0 Paroxysmal atrial fibrillation; N40.0 Benign prostatic hyperplasia without lower urinary tract symptoms; Z79.01 Long term (current) use of anticoagulants; Z90.49 Acquired absence of other specified parts of digestive tract; Z85.038 Personal history of other malignant neoplasm of large intestine; Z87.891 Personal history of nicotine dependence; Z79.899 Other long term (current) drug therapy
CPT/HCPCS: 36415; 74022; 80048; 80053; 82553; 83735; 84100; 84484; 85025; 87045; 87046; 87324; 87449; 87899; 93005; 96361; 96365; 96366; 96375; 96376; C9113; J2270; J2405; J3475; J3480; J7050

== ENCOUNTER 2019-12-17 05:24 | Outpatient (CLI) | payer MEDICARE, BC, OTHER ==
[2019-12-18 14:42] LABS: SARS-CoV-2 MS2 Positive; SARS-CoV-2 N Gene Negative; SARS-CoV-2 S Gene Negative; SARS-CoV-2 by NAA Not Detected (NotDetected); SARS-CoV-2 orf1ab Negative
== END 2019-12-17 05:25 | disposition home or self-care (01) ==
LOC: LABBT 05:24
PROVIDERS: ATTEND Internal Medicine Gastroenterology
DX: Z01.812 Encounter for preprocedural laboratory examination (principal); Z11.59 Encounter for screening for other viral diseases
CPT/HCPCS: 87635; U0003

== ENCOUNTER 2019-12-21 06:20 | Day surgery (SDC) | payer MEDICARE, BC ==
[2019-12-16 15:43] VITALS: BMI 28.5
[2019-12-21] MEDS ORDERED: Ketamine 50 MG/ML (10ML VIAL) ONE (07:46)
--- NOTE | 2019-12-21 09:25 | OP ---
DATE OF PROCEDURE: 12/21/2019 PROCEDURE PERFORMED: Colonoscopy. PREOPERATIVE DIAGNOSIS: History of colon cancer, due for surveillance. DESCRIPTION OF PROCEDURE: Informed consent was obtained from the patient. He was sedated with total intravenous anesthesia. The rectal exam was performed and was normal. The preparation quality was good. The colonoscope was advanced to the terminal ileum without difficulty. The mucosa of the terminal ileum was normal. He has a healthy-appearing anastomosis in the transverse colon. He is status post right hemicolectomy. There was diverticulosis in the sigmoid colon, which was moderate. The remainder of the colonic mucosa was normal. Retroflexed views in the rectum were normal. IMPRESSION: 1. Status post right hemicolectomy for colon cancer a year ago. 2. Sigmoid diverticulosis. 3. Otherwise normal surveillance colonoscopy today. RECOMMENDATIONS: Repeat colonoscopy in 3 years for surveillance. Job ID: [id number]
[2019-12-21] MEDS ORDERED: EPHEDRINE 25 MG/5 ML SYRINGE ONE (10:44)
[2019-12-21] MEDS ORDERED: PHENYLEPHRINE-NS 100 MCG/ML 10 ML SYRINGE ONE (10:44)
[2019-12-21] MEDS ORDERED: PROPOFOL 200 MG/20 ML VIAL ONE (10:44)
[2019-12-21] MEDS ORDERED: Lidocaine 1% PF 5 ML VIAL ONE (10:44)
== END 2019-12-21 10:45 | disposition home or self-care (01) ==
LOC: SDC 06:20
PROVIDERS: ATTEND Internal Medicine Gastroenterology
PROC: 0DJD8ZZ Inspection of Lower Intestinal Tract, Via Natural or Artificial Opening Endoscopic (ICD-10-PCS; principal; 2019-12-21)
DX: Z12.11 Encounter for screening for malignant neoplasm of colon (principal); K57.30 Diverticulosis of large intestine without perforation or abscess without bleeding; I48.91 Unspecified atrial fibrillation; Z85.038 Personal history of other malignant neoplasm of large intestine; Z79.01 Long term (current) use of anticoagulants; Z79.899 Other long term (current) drug therapy; Z90.49 Acquired absence of other specified parts of digestive tract; Z95.810 Presence of automatic (implantable) cardiac defibrillator
CPT/HCPCS: J2704

== ENCOUNTER 2020-04-19 14:43 | Outpatient (CLI) | payer MEDICARE, BC ==
--- NOTE | 2020-04-19 16:15 | ULT ---
Exam: Testicular ultrasound HISTORY: Benign prosthetic hypertrophy COMPARISON: None TECHNIQUE: Sagittal and transverse imaging of the left and right hemiscrotum are performed. Testicula r Doppler is performed with grayscale, color-flow, Doppler imaging and spectral waveform analysis. FINDINGS: Right hemiscrotum: Testicle: Homogeneous echotexture. No intratesticular masses. Right testicle measurements: 2.0 x 1.3 x 3.2 Right epididymis: Normal echotexture. Right epididymis measurements: 0.6 x 1.2 cm Hydrocele: None Left hemiscrotum: Left testicle: Homogeneous echotexture. No intratesticular masses. Left testicle measurements: 2.3 x 3.8 x 1.3 cm Left epididymis: Normal echotexture. Left epididymis measurements:0.5 x 1.2 cm Hydrocele: None Testicular Doppler: There is symmetric vascular flow to the left and right testicle. There are promin ent vessels in the left and right hemiscrotum which increase upon Valsalva. IMPRESSION: 1. Normal testicular ultrasound. 2. Bilateral varicoceles.
== END 2020-04-19 14:44 | disposition home or self-care (01) ==
LOC: BICULT 14:43
PROVIDERS: ATTEND Urology
DX: N40.1 Benign prostatic hyperplasia with lower urinary tract symptoms (principal); D17.6 Benign lipomatous neoplasm of spermatic cord; I86.1 Scrotal varices
CPT/HCPCS: 76870; 93976

== ENCOUNTER 2020-06-12 07:52 | Inpatient (IN) | payer MEDICARE, BC ==
[2020-06-12] MEDS ORDERED: Magnesium 2 GM/50 ML BAG (IN WATER) ONE (08:08)
[2020-06-12] MEDS ORDERED: Amiodarone 150 MG, Admixture Fee 1 EACH in Dextrose 5% in Water 100 ML IVPB SCH ×2 (08:30→11:30)
[2020-06-12 08:42] LABS: #Basophils 0.1 thou/uL (0.0-0.2); #Eosinphils 0.2 thou/uL (0.0-0.7); #Lymphocytes 1.8 thou/uL (1.20-3.40); #Monocytes 0.7 thou/uL (0.11-0.59); %Basophils 0.8 % (0.0-1.0); %Eosinophils 2.6 % (0.0-10.0); %Lymphocytes 27.1 % (21.0-51.0); %Monocytes 10.5 % (0.0-10.0); Hemoglobin 15.9 g/dL (14.0-18.0); Mean Platelet Volume 7.9 fL (7.4-10.4); Platelet Count 129 thou/uL (130-400); RBC Distribution Width 12.5 % (11.5-14.5); Red Blood Cell (RBC) Count 4.68 mill/uL (4.70-6.10); White Blood Cell (WBC) Count 6.8 thou/uL (4.8-10.8)
[2020-06-12 08:59] LABS: ALT (SGPT) 18 U/L (8-55); AST (SGOT) 20 U/L (5-34); Albumin 3.9 g/dL (3.4-4.8); Alkaline Phosphatase 81 U/L (40-110); Anion Gap 16 mmol/L (10-20); BUN (Urea Nitrogen) 13 mg/dL (8.4-25.7); Bilirubin, Total 0.8 mg/dL (0.2-1.2); Calc. Creatinine Clearance 0 mL/min (70-130); Calcium 8.9 mg/dL (7.8-10.44); Carbon Dioxide 23 mmol/L (23-31); Chloride 105 mmol/L (98-107); Globulin 3.2 g/dL (2.4-3.5); Glucose 168 mg/dL (83-110); Magnesium 1.9 mg/dL (1.6-2.6); Potassium 3.9 mmol/L (3.5-5.1); Protein, Total 7.1 g/dL (5.8-8.1); Sodium 140 mmol/L (136-145)
[2020-06-12] MEDS ORDERED: Amiodarone 450 MG, Admixture Fee 1 EACH in Dextrose 5% in Water 250 ML IVPB SCH (09:15)
[2020-06-12 11:54] LABS: Troponin I Less than 0.010 ng/mL (< 0.028)
[2020-06-12 13:17] VITALS: BMI 24.4
[2020-06-12] MEDS ORDERED: HYDROcodone/Acetaminophen 5/325 mg Tablet PO PRN (13:18)
[2020-06-12] MEDS ORDERED: Potassium Chloride 20 MEQ TAB PO SCH (14:45)
[2020-06-12 15:50] LABS: Troponin I 0.018 ng/mL (< 0.028)
[2020-06-12] MEDS ORDERED: Sotalol HCl 80 MG TAB PO SCH (18:00)
[2020-06-12 22:24] LABS: SARS-CoV-2 PCR by NAA Not Detected (NotDetected)
[2020-06-13 05:09] LABS: #Basophils 0.1 thou/uL (0.0-0.2); #Eosinphils 0.2 thou/uL (0.0-0.7); #Lymphocytes 2.4 thou/uL (1.20-3.40); #Monocytes 1.1 thou/uL (0.11-0.59); #Neutrophils 6.4 thou/uL (1.40-6.50); %Basophils 0.7 % (0.0-1.0); %Eosinophils 2.2 % (0.0-10.0); %Lymphocytes 23.5 % (21.0-51.0); %Monocytes 11.1 % (0.0-10.0); %Neutrophils 62.5 % (42.0-75.0); Hemoglobin 14.8 g/dL (14.0-18.0); Mean Corpuscular HGB CONC 34.4 g/dL (32.0-36.0); Mean Corpuscular Hemoglobin 34.4 pg (27.0-31.0); Mean Platelet Volume 7.7 fL (7.4-10.4); Platelet Count 129 thou/uL (130-400); RBC Distribution Width 12.6 % (11.5-14.5); Red Blood Cell (RBC) Count 4.29 mill/uL (4.70-6.10); White Blood Cell (WBC) Count 10.2 thou/uL (4.8-10.8)
[2020-06-13 05:40] LABS: ALT (SGPT) 15 U/L (8-55); AST (SGOT) 16 U/L (5-34); Albumin 3.5 g/dL (3.4-4.8); Alkaline Phosphatase 69 U/L (40-110); Anion Gap 11 mmol/L (10-20); BUN (Urea Nitrogen) 13 mg/dL (8.4-25.7); Bilirubin, Total 1.2 mg/dL (0.2-1.2); Calc. Creatinine Clearance 87 mL/min (70-130); Calcium 8.5 mg/dL (7.8-10.44); Carbon Dioxide 25 mmol/L (23-31); Chloride 106 mmol/L (98-107); Globulin 2.9 g/dL (2.4-3.5); Glucose 139 mg/dL (83-110); Potassium 4.1 mmol/L (3.5-5.1); Protein, Total 6.4 g/dL (5.8-8.1); Sodium 138 mmol/L (136-145)
[2020-06-13] MEDS: Sotalol HCl 80 MG TAB PO SCH ×2 (06:02→18:19)
[2020-06-13] MEDS: Gabapentin 300 MG CAP PO SCH ×2 (09:42→20:54)
[2020-06-13] MEDS: Apixaban 5 MG TAB PO SCH ×2 (09:42→20:53)
[2020-06-13] MEDS: Atorvastatin Calcium 10 MG TAB PO SCH (20:53)
[2020-06-13] MEDS: Tamsulosin HCl 0.4 MG CAP PO SCH (20:53)
[2020-06-14 05:16] LABS: ALT (SGPT) 18 U/L (8-55); AST (SGOT) 17 U/L (5-34); Albumin 3.5 g/dL (3.4-4.8); Alkaline Phosphatase 74 U/L (40-110); Anion Gap 14 mmol/L (10-20); BUN (Urea Nitrogen) 14 mg/dL (8.4-25.7); Bilirubin, Total 1.3 mg/dL (0.2-1.2); Calc. Creatinine Clearance 87 mL/min (70-130); Calcium 8.7 mg/dL (7.8-10.44); Carbon Dioxide 25 mmol/L (23-31); Chloride 103 mmol/L (98-107); Globulin 3.2 g/dL (2.4-3.5); Glucose 148 mg/dL (83-110); Potassium 4.2 mmol/L (3.5-5.1); Protein, Total 6.7 g/dL (5.8-8.1); Sodium 138 mmol/L (136-145)
[2020-06-14] MEDS: Sotalol HCl 80 MG TAB PO SCH ×2 (06:54→18:20)
[2020-06-14] MEDS: Acetaminophen 325 MG TAB PO PRN ×3 (08:31→23:38)
[2020-06-14] MEDS: Apixaban 5 MG TAB PO SCH ×2 (08:31→20:06)
[2020-06-14] MEDS: Gabapentin 300 MG CAP PO SCH ×2 (08:32→20:06)
[2020-06-14] MEDS: Atorvastatin Calcium 10 MG TAB PO SCH (20:06)
[2020-06-14] MEDS: Tamsulosin HCl 0.4 MG CAP PO SCH (20:06)
[2020-06-15 05:17] LABS: Hemoglobin 15.1 g/dL (14.0-18.0); Mean Corpuscular HGB CONC 33.5 g/dL (32.0-36.0); Mean Corpuscular Hemoglobin 33.7 pg (27.0-31.0); Mean Platelet Volume 7.7 fL (7.4-10.4); Platelet Count 140 thou/uL (130-400); RBC Distribution Width 12.4 % (11.5-14.5); Red Blood Cell (RBC) Count 4.48 mill/uL (4.70-6.10); White Blood Cell (WBC) Count 8.2 thou/uL (4.8-10.8)
[2020-06-15 05:32] LABS: Calc. Creatinine Clearance 86 mL/min (70-130)
[2020-06-15] MEDS: Sotalol HCl 80 MG TAB PO SCH (05:43)
[2020-06-15 07:53] VITALS: TEMP 97.6
[2020-06-15] MEDS: Apixaban 5 MG TAB PO SCH (08:30)
[2020-06-15] MEDS: Gabapentin 300 MG CAP PO SCH (08:30)
[2020-06-15 10:35] VITALS: BP 107/70
== END 2020-06-15 12:08 | disposition home or self-care (01) | DRG 309 ==
LOC: ERS 07:52 → ERHOLD 10:52 → 2SE 14:21
PROVIDERS: ADMIT Internal Medicine; ATTEND Internal Medicine
PROC: 5A2204Z Restoration of Cardiac Rhythm, Single (ICD-10-PCS; principal; 2020-06-12)
DX: I47.2 Ventricular tachycardia (principal); C18.9 Malignant neoplasm of colon, unspecified; E78.00 Pure hypercholesterolemia, unspecified; E78.5 Hyperlipidemia, unspecified; I10 Essential (primary) hypertension; I48.0 Paroxysmal atrial fibrillation; G89.29 Other chronic pain; M54.9 Dorsalgia, unspecified; N40.1 Benign prostatic hyperplasia with lower urinary tract symptoms; R33.9 Retention of urine, unspecified; Z20.822 Contact with and (suspected) exposure to COVID-19; Z90.49 Acquired absence of other specified parts of digestive tract; Z87.891 Personal history of nicotine dependence; Z79.899 Other long term (current) drug therapy; Z79.01 Long term (current) use of anticoagulants; Z83.3 Family history of diabetes mellitus; Z82.49 Family history of ischemic heart disease and other diseases of the circulatory system; Z98.61 Coronary angioplasty status
CPT/HCPCS: 36415; 71045; 80053; 82565; 83735; 83880; 84132; 84484; 85025; 85027; 87635; 93005; 93010; 93306; 94760; 96365; 96366; 96367; 96374; J0282; J3475; J7070; U0003; U0005

== ENCOUNTER 2020-06-17 08:40 | Emergency (ER) | payer MEDICARE, BC ==
[2020-06-17 09:19] LABS: #Basophils 0.1 thou/uL (0.0-0.2); #Eosinphils 0.2 thou/uL (0.0-0.7); #Lymphocytes 2.3 thou/uL (1.20-3.40); #Monocytes 0.7 thou/uL (0.11-0.59); #Neutrophils 4.1 thou/uL (1.40-6.50); %Basophils 1.3 % (0.0-1.0); %Eosinophils 2.6 % (0.0-10.0); %Lymphocytes 31.4 % (21.0-51.0); %Monocytes 9.1 % (0.0-10.0); %Neutrophils 55.6 % (42.0-75.0); Hemoglobin 15.5 g/dL (14.0-18.0); Mean Corpuscular HGB CONC 33.4 g/dL (32.0-36.0); Mean Corpuscular Hemoglobin 33.5 pg (27.0-31.0); Mean Platelet Volume 7.9 fL (7.4-10.4); Platelet Count 149 thou/uL (130-400); RBC Distribution Width 12.5 % (11.5-14.5); Red Blood Cell (RBC) Count 4.63 mill/uL (4.70-6.10); White Blood Cell (WBC) Count 7.3 thou/uL (4.8-10.8)
[2020-06-17 09:38] LABS: ALT (SGPT) 25 U/L (8-55); AST (SGOT) 20 U/L (5-34); Albumin 3.7 g/dL (3.4-4.8); Alkaline Phosphatase 79 U/L (40-110); Anion Gap 13 mmol/L (10-20); BUN (Urea Nitrogen) 17 mg/dL (8.4-25.7); Calc. Creatinine Clearance 0 mL/min (70-130); Calcium 8.8 mg/dL (7.8-10.44); Carbon Dioxide 26 mmol/L (23-31); Chloride 103 mmol/L (98-107); Globulin 3.3 g/dL (2.4-3.5); Glucose 220 mg/dL (83-110); Potassium 4.2 mmol/L (3.5-5.1); Sodium 138 mmol/L (136-145)
== END 2020-06-17 11:20 | disposition home or self-care (01) ==
LOC: ERS 08:40
DX: R00.2 Palpitations (principal); E78.5 Hyperlipidemia, unspecified; I48.91 Unspecified atrial fibrillation; E78.00 Pure hypercholesterolemia, unspecified; I10 Essential (primary) hypertension; N40.0 Benign prostatic hyperplasia without lower urinary tract symptoms; Z87.891 Personal history of nicotine dependence; Z79.01 Long term (current) use of anticoagulants; Z79.899 Other long term (current) drug therapy
CPT/HCPCS: 71045; 80053; 83735; 84484; 85025; 93005

== ENCOUNTER 2020-09-06 09:30 | Outpatient (CLI) | payer MEDICARE, BC ==
[2020-09-06 11:48] LABS: Hemoglobin 15.7 g/dL (13.5-17.5); Mean Corpuscular HGB CONC 34.1 g/dL (32.0-36.0); Mean Corpuscular Hemoglobin 33.1 pg (27.0-33.0); Mean Platelet Volume 10.5 fl (7.4-10.4); Platelet Count 153 10x3/uL (150-450); RBC Distribution Width 13.6 % (11.5-14.5); Red Blood Cell (RBC) Count 4.74 10x6/uL (4.32-5.72); White Blood Cell (WBC) Count 6.1 10x3/uL (3.5-10.5)
[2020-09-06 12:03] LABS: PTT 29.5 sec (22.0-33.0); Prothrombin Time 11.3 sec (9.5-12.1)
[2020-09-06 22:36] LABS: SARS-CoV-2 PCR by NAA Not Detected (NotDetected)
[2020-09-08 10:02] LABS: Anion Gap 19 mmol/L (10-20); BUN (Urea Nitrogen) 16 mg/dL (8.4-25.7); Calc. Creatinine Clearance 0 mL/min (70-130); Calcium 9.1 mg/dL (7.8-10.44); Carbon Dioxide 23 mmol/L (23-31); Chloride 105 mmol/L (98-107); Glucose 176 mg/dL (83-110); Potassium 5.2 mmol/L (3.5-5.1); Sodium 142 mmol/L (136-145)
== END 2020-09-06 09:31 | disposition home or self-care (01) ==
LOC: LABBT 09:30
PROVIDERS: ATTEND Internal Medicine Cardiovascular Disease
DX: Z01.818 Encounter for other preprocedural examination (principal); I48.91 Unspecified atrial fibrillation; Z20.822 Contact with and (suspected) exposure to COVID-19
CPT/HCPCS: 85027; 85610; 85730; 93005; U0003; U0005; 80048; 87635; 93010

== ENCOUNTER 2020-09-11 08:13 | Observation (INO) | payer MEDICARE, BC ==
[2020-09-07 16:36] VITALS: BMI 29.8
[2020-09-11] MEDS ORDERED: Heparin 10,000 UNITS/ 10 ML VIAL ONE ×2 (12:15→13:55)
[2020-09-11] MEDS ORDERED: Fentanyl 100 MCG/2 ML VIAL ONE ×2 (12:45→15:53)
[2020-09-11] MEDS ORDERED: Rocuronium Bromide 10 MG/ML (10ML VIAL) ONE (12:57)
[2020-09-11] MEDS ORDERED: Lidocaine 1% PF 5 ML VIAL ONE (12:57)
[2020-09-11] MEDS ORDERED: Glycopyrrolate 0.2 MG/ML 5 ML SYRINGE ONE (12:57)
[2020-09-11] MEDS ORDERED: Ondansetron PF 4 MG/2 ML Vial ONE (12:57)
[2020-09-11] MEDS ORDERED: ePHEDrine Sulfate 50 MG/10 ML VIAL ONE (12:57)
[2020-09-11] MEDS ORDERED: PHENYLEPHRINE-NS 100 MCG/ML 10 ML SYRINGE ONE (12:57)
[2020-09-11] MEDS ORDERED: PROPOFOL 200 MG/20 ML VIAL ONE (12:57)
[2020-09-11] MEDS ORDERED: Dexamethasone 20 MG/5 ML VIAL ONE (12:57)
[2020-09-11] MEDS ORDERED: Heparin 25,000 units/D5W 500 ML ONE (13:55)
[2020-09-11] MEDS ORDERED: Isoproterenol 0.2 MG/1 ML AMP ONE (14:40)
[2020-09-11] MEDS ORDERED: Ondansetron HCl/PF 4 MG/2 ML Vial IVP PRN (15:06)
[2020-09-11] MEDS ORDERED: Promethazine HCl 25 MG/ML VIAL SLOW IVP PRN (15:06)
[2020-09-11] MEDS ORDERED: Promethazine HCl 25 MG/ML VIAL IM PRN (15:06)
[2020-09-11] MEDS ORDERED: Protamine Sulfate 50 MG/5 ML VIAL ONE (15:53)
[2020-09-11] MEDS ORDERED: SYSTANE GEL OPHTH DROPS 10 ML EA EYE PRN (18:48)
[2020-09-11] MEDS ORDERED: Ketorolac Tromethamine 30 MG/ML VIAL IVP PRN (18:57)
[2020-09-11] MEDS ORDERED: Acetaminophen/Codeine 30-300mg Tablet PO PRN ×2 (19:00)
[2020-09-11] MEDS: Gabapentin 300 MG CAP PO SCH (20:21)
[2020-09-11] MEDS: Vit A,C & E/Lutein/Minerals Tablet PO SCH (20:22)
[2020-09-11] MEDS: Sotalol HCl 80 MG TAB PO SCH (20:22)
[2020-09-11] MEDS: Apixaban 5 MG TAB PO SCH (20:23)
[2020-09-11] MEDS: Clobetasol 0.05% Cream 15 gm Tube TOP SCH (20:24)
[2020-09-11] MEDS: Mupirocin 2% Ointment 22 GM Tube TOP SCH (20:24)
[2020-09-11] MEDS ORDERED: Lactinex Tablet PO SCH (21:00)
[2020-09-11] MEDS ORDERED: Tamsulosin HCl 0.4 MG CAP PO SCH (21:00)
[2020-09-11] MEDS ORDERED: Atorvastatin Calcium 10 MG TAB PO SCH (21:00)
[2020-09-12] MEDS: Apixaban 5 MG TAB PO SCH (08:38)
[2020-09-12] MEDS: Vit A,C & E/Lutein/Minerals Tablet PO SCH (08:38)
[2020-09-12] MEDS: Gabapentin 300 MG CAP PO SCH (08:39)
[2020-09-12] MEDS: Clobetasol 0.05% Cream 15 gm Tube TOP SCH (08:42)
[2020-09-12] MEDS: Mupirocin 2% Ointment 22 GM Tube TOP SCH (08:42)
[2020-09-12] MEDS ORDERED: Zinc Sulfate 220 MG CAP PO SCH (09:00)
[2020-09-12] MEDS ORDERED: Furosemide 20 MG TAB PO SCH (09:00)
[2020-09-12] MEDS ORDERED: Cholecalciferol 1,000 UNITS (25 MCG) TAB PO SCH (09:00)
[2020-09-12] MEDS ORDERED: Ascorbic Acid 500 mg Chewable Tablet PO SCH (09:00)
[2020-09-12] MEDS ORDERED: Digoxin 0.125 MG TAB PO SCH (09:00)
[2020-09-12] MEDS: Sotalol HCl 80 MG TAB PO SCH (09:58)
[2020-09-12 14:07] VITALS: BP 107/65; TEMP 98.3
== END 2020-09-12 11:25 | disposition home or self-care (01) ==
LOC: CCL 08:13 → 2SW 09:03
PROVIDERS: ADMIT Internal Medicine Cardiovascular Disease; ATTEND Internal Medicine Cardiovascular Disease
PROC: 02583ZZ Destruction of Conduction Mechanism, Percutaneous Approach (ICD-10-PCS; principal; 2020-09-11)
PROC: 02K83ZZ Map Conduction Mechanism, Percutaneous Approach (ICD-10-PCS; 2020-09-11)
PROC: 4A023FZ Measurement of Cardiac Rhythm, Percutaneous Approach (ICD-10-PCS; 2020-09-11)
PROC: 4A0234Z Measurement of Cardiac Electrical Activity, Percutaneous Approach (ICD-10-PCS; 2020-09-11)
DX: I48.0 Paroxysmal atrial fibrillation (principal); I47.2 Ventricular tachycardia; G89.29 Other chronic pain; M54.9 Dorsalgia, unspecified; I10 Essential (primary) hypertension; E78.5 Hyperlipidemia, unspecified; Z87.891 Personal history of nicotine dependence; Z79.01 Long term (current) use of anticoagulants; Z79.899 Other long term (current) drug therapy; Z95.810 Presence of automatic (implantable) cardiac defibrillator
CPT/HCPCS: 76942; 85347 ×2; 93005 ×2; 93613; 93623; 93655; 93656; 93662; C1732 ×3; C1759; G0378 ×2; 93010; J1100; J1644; J2405; J2704; J2720; J3010

== ENCOUNTER 2020-10-30 07:28 | Outpatient (CLI) | payer MEDICARE, BC ==
[2020-10-30] MEDS ORDERED: Iopamidol-370 76% 500 ML 1 ML ONE (13:36)
== END 2020-10-30 07:29 | disposition home or self-care (01) ==
LOC: BICCT 07:28
PROVIDERS: ATTEND Urology
DX: N40.1 Benign prostatic hyperplasia with lower urinary tract symptoms (principal); N20.0 Calculus of kidney; N28.89 Other specified disorders of kidney and ureter; K57.30 Diverticulosis of large intestine without perforation or abscess without bleeding
CPT/HCPCS: 74178; Q9967

== ENCOUNTER 2021-05-29 09:15 | Outpatient (CLI) | payer MEDICARE, BC | END 2021-05-29 09:16 | disposition home or self-care (01) | LOC: BICULT 09:15 | PROVIDERS: ATTEND Urology | DX: N40.1 Benign prostatic hyperplasia with lower urinary tract symptoms (principal); R33.8 Other retention of urine | CPT/HCPCS: 76770 ==

== ENCOUNTER → 2022-08-27 | Day surgery (SDC) | payer MEDICARE, BC ==
[2022-08-26 13:21] VITALS: BMI 28.5
[~2022-08-27] MED LIST changes: +Midazolam HCl 2 mg/2 ml Vial ONE; -Ondansetron HCl/PF 4 MG/2 ML Vial IVP PRN; -Ondansetron ODT 4 MG TAB SL PRN; +Sodium Bicarbonate 2.5 MEQ/5 ML VIAL ONE; +fentaNYL 50 mcg/mL 1 mL Vial ONE
[2022-08-27 09:06] LABS: #Basophils 0.1 thou/uL (0.0-0.2); #Eosinphils 0.2 thou/uL (0.0-0.7); #Lymphocytes 2.4 thou/uL (1.20-3.40); #Neutrophils 4.2 thou/uL (1.40-6.50); %Basophils 1.2 % (0.0-1.0); %Lymphocytes 30.3 % (21.0-51.0); %Monocytes 12.5 % (0.0-10.0); Hemoglobin 14.6 g/dL (14.0-18.0); Mean Corpuscular HGB CONC 32.8 g/dL (32.0-36.0); Mean Corpuscular Hemoglobin 33.9 pg (27.0-31.0); Mean Platelet Volume 7.8 fL (7.4-10.4); Platelet Count 134 10x3/uL (130-400); RBC Distribution Width 12.5 % (11.5-14.5); White Blood Cell (WBC) Count 7.9 10x3/uL (4.8-10.8)
[2022-08-27 09:16] LABS: PTT 28.9 sec (22.9-36.1); Prothrombin Time 13.8 sec (12.0-14.7)
[2022-08-27 18:05] VITALS: BP 92/61; TEMP 97.7
== END | disposition home or self-care (01) ==
LOC: CT 08:16
PROVIDERS: ATTEND Urology
PROC: 0T9B30Z Drainage of Bladder with Drainage Device, Percutaneous Approach (ICD-10-PCS; principal; 2022-08-27)
DX: N40.1 Benign prostatic hyperplasia with lower urinary tract symptoms (principal); R33.8 Other retention of urine; R39.14 Feeling of incomplete bladder emptying; Z79.82 Long term (current) use of aspirin; Z79.84 Long term (current) use of oral hypoglycemic drugs; Z79.899 Other long term (current) drug therapy
CPT/HCPCS: 51102; 77002; 85025; 85610; 85730; C2627; J1956; J2250; J3010

== ENCOUNTER 2023-02-25 08:25 | Inpatient (IN) | payer MEDICARE, BC ==
[2023-02-25 10:46] LABS: #Eosinphils 0.2 thou/uL (0.0-0.7); #Monocytes 0.8 thou/uL (0.11-0.59); #Neutrophils 8.6 thou/uL (1.40-6.50); %Basophils 0.3 % (0.0-1.0); %Eosinophils 1.9 % (0.0-10.0); %Monocytes 6.9 % (0.0-10.0); %Neutrophils 78.9 % (42.0-75.0); Hematocrit 41.9 % (42.0-52.0); Hemoglobin 14.2 g/dL (14.0-18.0); Mean Corpuscular HGB CONC 33.9 g/dL (32.0-36.0); Mean Corpuscular Hemoglobin 33.6 pg (27.0-31.0); Mean Corpuscular Volume 99.3 fl (78.0-98.0); Platelet Count 167 10x3/uL (130-400); RBC Distribution Width 14.1 % (11.5-14.5); Red Blood Cell (RBC) Count 4.22 mill/uL (4.70-6.10); White Blood Cell (WBC) Count 10.9 10x3/uL (4.8-10.8)
[2023-02-25] MEDS ORDERED: fentaNYL 50 mcg/mL 1 mL Vial ONE (11:01)
[2023-02-25 11:08] LABS: ALT (SGPT) 13 U/L (8-55); AST (SGOT) 18 U/L (5-34); Alkaline Phosphatase 93 U/L (40-110); Anion Gap 14 mmol/L (10-20); BUN (Urea Nitrogen) 12 mg/dL (8.4-25.7); Bilirubin, Total 0.7 mg/dL (0.2-1.2); Calc. Creatinine Clearance 0 mL/min (70-130); Calcium 9.2 mg/dL (7.8-10.44); Carbon Dioxide 28 mmol/L (23-31); Chloride 103 mmol/L (98-107); Estimated GFR 88; Globulin 2.6 g/dL (2.4-3.5); Glucose 162 mg/dL (83-110); Potassium 4.2 mmol/L (3.5-5.1); Protein, Total 6.6 g/dL (5.8-8.1); Sodium 141 mmol/L (136-145)
[2023-02-25 11:20] LABS: Troponin I 0.018 ng/mL (< 0.028)
[2023-02-25] MEDS ORDERED: TETANUS, DIPHTHERIA TOX,ADULT (TDVAX) 0.5 ML VIAL IM ONE (14:48)
[2023-02-25] MEDS ORDERED: Morphine 2 MG/ML VIAL SLOW IVP PRN (14:55)
[2023-02-25] MEDS ORDERED: Ipratropium/Albuterol 3 ML NEB NEB PRN (14:55)
[2023-02-25] MEDS ORDERED: hydrALAZINE 20 MG/ML VIAL SLOW IVP PRN (14:55)
[2023-02-25] MEDS ORDERED: Ondansetron ODT 4 MG TAB PO PRN (14:55)
[2023-02-25 17:49] VITALS: BMI 26.7
[2023-02-25] MEDS: Acetaminophen 325 MG TAB PO SCH ×2 (19:01→23:41)
[2023-02-25] MEDS: Sodium Chloride 0.9% 1,000 ML IV SCH (19:02)
[2023-02-25] MEDS ORDERED: Polyethylene Glycol OPTH DROP 15 ML BOT EA EYE PRN (22:10)
[2023-02-25] MEDS ORDERED: ASPERCREME TOP PRN (22:12)
[2023-02-25] MEDS: Famotidine 20 MG TAB PO SCH (23:42)
[2023-02-26 03:21] LABS: Bilirubin Negative (Negative); Blood, Urine 2+ (Negative); Clarity Extra Turbid (Clear); Glucose, Urine (Dipstick) Normal (Negative); Ketone, Urine Trace mg/dL (Negative); Leukocyte 500 Leu/uL (Negative); Nitrite 1+ (Negative); Protein, Urine (Dipstick) 50 mg/dL (Neg-Trace); RBC/HPF Greater than 50 HPF (0-3); Squamous Epithelial None Seen HPF (0-3); WBC/HPF Greater than 50 HPF (0-3); pH, Urine 6.5 (5.0-9.0)
[2023-02-26 03:22] LABS: Bacteria/HPF 1+ HPF (None Seen)
[2023-02-26] MEDS: Sodium Chloride 0.9% 1,000 ML IV SCH ×2 (05:16→13:23)
[2023-02-26] MEDS: Acetaminophen 325 MG TAB PO SCH ×4 (05:16→23:36)
[2023-02-26 05:51] LABS: #Basophils 0.1 thou/uL (0.0-0.2); #Eosinphils 0.4 thou/uL (0.0-0.7); #Neutrophils 6.5 thou/uL (1.40-6.50); %Basophils 0.7 % (0.0-1.0); %Eosinophils 4.3 % (0.0-10.0); %Lymphocytes 14.7 % (21.0-51.0); %Monocytes 10.9 % (0.0-10.0); %Neutrophils 68.8 % (42.0-75.0); Hematocrit 38.3 % (42.0-52.0); Mean Corpuscular HGB CONC 33.9 g/dL (32.0-36.0); Mean Corpuscular Hemoglobin 33.2 pg (27.0-31.0); Mean Corpuscular Volume 97.7 fl (78.0-98.0); Mean Platelet Volume 9.9 fL (7.4-10.4); Platelet Count 124 10x3/uL (130-400); RBC Distribution Width 14.1 % (11.5-14.5); Red Blood Cell (RBC) Count 3.92 mill/uL (4.70-6.10); White Blood Cell (WBC) Count 9.5 10x3/uL (4.8-10.8)
[2023-02-26 06:19] LABS: Anion Gap 13 mmol/L (10-20); BUN (Urea Nitrogen) 12 mg/dL (8.4-25.7); Calc. Creatinine Clearance 114 mL/min (70-130); Calcium 8.5 mg/dL (7.8-10.44); Carbon Dioxide 24 mmol/L (23-31); Chloride 104 mmol/L (98-107); Estimated GFR 92; Glucose 156 mg/dL (83-110); Potassium 3.8 mmol/L (3.5-5.1); Sodium 137 mmol/L (136-145)
[2023-02-26 06:56] LABS: CellaVision Operator ID LAB.GE; Platelet Adequacy Comment Platelets Decreased; Polychromasia SLIGHT = 2-3 cells HPF (0-2)
[2023-02-26] MEDS ORDERED: Polyethylene Glycol OPTH DROP 15 ML BOT EA EYE PRN (07:00)
[2023-02-26] MEDS: Zinc Sulfate 220 MG CAP PO SCH (08:25)
[2023-02-26] MEDS: Gabapentin 300 MG CAP PO SCH ×2 (08:25→20:55)
[2023-02-26] MEDS: Famotidine 20 MG TAB PO SCH ×2 (08:25→20:55)
[2023-02-26] MEDS: Vit A,C & E/Lutein/Minerals Tablet PO SCH ×2 (08:25→20:54)
[2023-02-26] MEDS: Sotalol HCl 80 MG TAB PO SCH ×2 (08:25→20:55)
[2023-02-26] MEDS: Cholecalciferol 1,000 UNITS (25 MCG) TAB PO SCH ×2 (08:26→20:52)
[2023-02-26] MEDS: Ascorbic Acid 500 mg Chewable Tablet PO SCH ×2 (08:26→20:54)
[2023-02-26] MEDS: Aspirin 81 mg Enteric Coated Tablet PO SCH ×2 (08:26→20:55)
[2023-02-26] MEDS: metFORMIN 500 MG TAB PO SCH ×2 (08:26→17:53)
[2023-02-26] MEDS: Furosemide 20 MG TAB PO SCH (08:26)
[2023-02-26] MEDS ORDERED: Aspirin Chewable 81 MG TAB PO SCH (09:00)
[2023-02-26] MEDS ORDERED: Furosemide 20 MG TAB PO SCH (09:00)
[2023-02-26] MEDS ORDERED: Non-Formulary Item 1 EACH (Ascorbic Acid [Vitamin C Chewable Tablet] 250 MG Tab.Chew) PO SCH (09:00)
[2023-02-26] MEDS ORDERED: Gabapentin 300 MG CAP PO SCH (09:00)
[2023-02-26] MEDS ORDERED: SOTALOL HCL 160 MG PO SCH (09:00)
[2023-02-26] MEDS ORDERED: traMADol HCl 50 MG TAB PO PRN (12:33)
[2023-02-26] MEDS: Diclofenac 1% 50 GM TOPICAL GEL TP SCH ×2 (12:34→20:56)
[2023-02-26] MEDS: Nitrofurantoin Monohyd/M-Cryst 100 MG CAP PO SCH (20:55)
[2023-02-26] MEDS: Atorvastatin Calcium 10 MG TAB PO SCH (20:55)
[2023-02-26] MEDS ORDERED: Insulin Glargine 30 UNITS/0.3 ML VIAL SC SCH (21:00)
[2023-02-26] MEDS ORDERED: Non-Formulary Item 1 EACH (Pravastatin Sodium [Pravastatin Sodium] 80 MG Tablet) PO SCH (21:00)
[2023-02-26] MEDS ORDERED: Diclofenac 1% 50 GM TOPICAL GEL TP SCH ×2 (21:00)
[2023-02-27] MEDS: Acetaminophen 325 MG TAB PO SCH ×3 (05:28→18:09)
[2023-02-27 06:43] LABS: Hemoglobin A1c 6.8 % (4.0-6.0)
[2023-02-27] MEDS: Famotidine 20 MG TAB PO SCH ×2 (09:04→20:27)
[2023-02-27] MEDS: Cholecalciferol 1,000 UNITS (25 MCG) TAB PO SCH ×2 (09:04→20:27)
[2023-02-27] MEDS: Sotalol HCl 80 MG TAB PO SCH ×2 (09:04→20:27)
[2023-02-27] MEDS: Zinc Sulfate 220 MG CAP PO SCH (09:04)
[2023-02-27] MEDS: Ascorbic Acid 500 mg Chewable Tablet PO SCH ×2 (09:05→20:26)
[2023-02-27] MEDS: Diclofenac 1% 50 GM TOPICAL GEL TP SCH ×2 (09:05→20:30)
[2023-02-27] MEDS: Vit A,C & E/Lutein/Minerals Tablet PO SCH ×2 (09:05→20:27)
[2023-02-27] MEDS: Furosemide 20 MG TAB PO SCH (09:05)
[2023-02-27] MEDS: metFORMIN 500 MG TAB PO SCH ×2 (09:05→18:09)
[2023-02-27] MEDS: Gabapentin 300 MG CAP PO SCH ×2 (09:05→20:25)
[2023-02-27] MEDS: Aspirin 81 mg Enteric Coated Tablet PO SCH ×2 (09:05→20:27)
[2023-02-27] MEDS: Nitrofurantoin Monohyd/M-Cryst 100 MG CAP PO SCH ×2 (09:05→20:25)
[2023-02-27 12:29] LABS: #Basophils 0.1 thou/uL (0.0-0.2); #Eosinphils 0.4 thou/uL (0.0-0.7); #Neutrophils 5.7 thou/uL (1.40-6.50); %Basophils 0.7 % (0.0-1.0); %Eosinophils 4.4 % (0.0-10.0); %Lymphocytes 16.4 % (21.0-51.0); %Monocytes 11.5 % (0.0-10.0); %Neutrophils 66.4 % (42.0-75.0); Hematocrit 37.7 % (42.0-52.0); Hemoglobin 12.5 g/dL (14.0-18.0); Mean Corpuscular HGB CONC 33.2 g/dL (32.0-36.0); Mean Corpuscular Hemoglobin 33.2 pg (27.0-31.0); Mean Corpuscular Volume 100.3 fl (78.0-98.0); Mean Platelet Volume 9.7 fL (7.4-10.4); Platelet Count 126 10x3/uL (130-400); RBC Distribution Width 14.2 % (11.5-14.5); Red Blood Cell (RBC) Count 3.76 mill/uL (4.70-6.10); White Blood Cell (WBC) Count 8.6 10x3/uL (4.8-10.8)
[2023-02-27 19:36] VITALS: BP 120/73; TEMP 98.3
[2023-02-27] MEDS: Atorvastatin Calcium 10 MG TAB PO SCH (20:27)
[2023-02-28] MEDS ORDERED: FLU VACC QS2023(65UP)/MF59C/PF 60 MCG/0.5 ML SYRINGE IM ONE (09:00)
== END 2023-02-27 21:35 | DRG 965 ==
LOC: ERS 08:25 → SURG A 12:21 → ERS 13:05
PROVIDERS: ADMIT Surgery; ATTEND Surgery
DX: S32.591A Other specified fracture of right pubis, initial encounter for closed fracture (principal); S72.001A Fracture of unspecified part of neck of right femur, initial encounter for closed fracture; S32.411A Displaced fracture of anterior wall of right acetabulum, initial encounter for closed fracture; S32.471A Displaced fracture of medial wall of right acetabulum, initial encounter for closed fracture; S32.301A Unspecified fracture of right ilium, initial encounter for closed fracture; I10 Essential (primary) hypertension; E78.5 Hyperlipidemia, unspecified; E78.00 Pure hypercholesterolemia, unspecified; G89.29 Other chronic pain; D69.6 Thrombocytopenia, unspecified; M47.812 Spondylosis without myelopathy or radiculopathy, cervical region; W18.30XA Fall on same level, unspecified, initial encounter; Z95.810 Presence of automatic (implantable) cardiac defibrillator; Z87.891 Personal history of nicotine dependence
CPT/HCPCS: 36415; 36416; 70450; 72125; 72170; 72192; 80048; 80053; 81001; 83036; 83880; 84484; 85025; 93005; 96374; G0390; J3010; J7050

== ENCOUNTER 2023-03-20 13:11 | Outpatient (CLI) | payer MEDICARE, BC | END 2023-03-20 13:12 | disposition home or self-care (01) | LOC: BICMAMMO 13:11 | PROVIDERS: ATTEND Family Medicine | DX: Z13.820 Encounter for screening for osteoporosis (principal); M85.851 Other specified disorders of bone density and structure, right thigh; M85.852 Other specified disorders of bone density and structure, left thigh; Z87.310 Personal history of (healed) osteoporosis fracture | CPT/HCPCS: 77080 ==

== ENCOUNTER 2023-06-02 09:02 | Emergency (ER) | payer MEDICARE ==
[2023-06-02] MEDS ORDERED: Ibuprofen 200 MG TAB ONE (09:36)
[2023-06-02 09:51] LABS: #Basophils 0.1 thou/uL (0.0-0.2); #Eosinphils 0.2 thou/uL (0.0-0.7); #Monocytes 0.9 thou/uL (0.11-0.59); #Neutrophils 4.4 thou/uL (1.40-6.50); %Eosinophils 2.9 % (0.0-10.0); %Lymphocytes 21.8 % (21.0-51.0); %Monocytes 12.2 % (0.0-10.0); %Neutrophils 61.5 % (42.0-75.0); Hematocrit 42.7 % (42.0-52.0); Hemoglobin 14.6 g/dL (14.0-18.0); Mean Corpuscular HGB CONC 34.2 g/dL (32.0-36.0); Mean Corpuscular Hemoglobin 33.1 pg (27.0-31.0); Mean Corpuscular Volume 96.8 fl (78.0-98.0); Mean Platelet Volume 9.7 fL (7.4-10.4); Platelet Count 195 10x3/uL (130-400); RBC Distribution Width 13.6 % (11.5-14.5); Red Blood Cell (RBC) Count 4.41 mill/uL (4.70-6.10); White Blood Cell (WBC) Count 7.2 10x3/uL (4.8-10.8)
[2023-06-02 10:16] LABS: ALT (SGPT) 11 U/L (8-55); AST (SGOT) 12 U/L (5-34); Albumin 3.6 g/dL (3.4-4.8); Alkaline Phosphatase 101 U/L (40-110); Anion Gap 13 mmol/L (10-20); BUN (Urea Nitrogen) 16 mg/dL (8.4-25.7); Bilirubin, Total 0.7 mg/dL (0.2-1.2); Calc. Creatinine Clearance 0 mL/min (70-130); Calcium 9.2 mg/dL (7.8-10.44); Carbon Dioxide 25 mmol/L (23-31); Chloride 103 mmol/L (98-107); Estimated GFR 86; Globulin 3.8 g/dL (2.4-3.5); Glucose 221 mg/dL (83-110); Lipase 36 U/L (8-78); Potassium 4.2 mmol/L (3.5-5.1); Protein, Total 7.4 g/dL (5.8-8.1); Sodium 137 mmol/L (136-145)
[2023-06-02 10:17] LABS: Bilirubin Negative (Negative); Blood, Urine Negative (Negative); CAUTI Indications for Culture Dysuria,urgency,freq; Clarity Extra Turbid (Clear); Glucose, Urine (Dipstick) Normal (Negative); Ketone, Urine Negative (Negative); Leukocyte 500 Leu/uL (Negative); Nitrite 2+ (Negative); Protein, Urine (Dipstick) 30 mg/dL (Neg-Trace); RBC/HPF 0-3 HPF (0-3); Specific Gravity, Urine 1.015 (1.002-1.036); Squamous Epithelial 0-3 HPF (0-3); Urobilinogen Normal mg/dL (Less than 2); WBC/HPF Greater than 50 HPF (0-3); pH, Urine 8.5 (5.0-9.0)
[2023-06-02 10:18] LABS: Bacteria/HPF 1+ HPF (None Seen)
[2023-06-02 10:21] LABS: Urine Culture Reflex Yes Yes
[2023-06-02] MEDS ORDERED: Sodium Chloride 0.9% 100 ML ONE (10:37)
[2023-06-02] MEDS ORDERED: cefTRIAXone (ROCEPHIN) 2 GM VIAL ONE (10:37)
[2023-06-02] MEDS ORDERED: Morphine 4 MG/ML VIAL ONE (11:16)
== END 2023-06-02 12:40 | disposition home or self-care (01) ==
LOC: ERS 09:02
DX: N48.89 Other specified disorders of penis (principal); N21.0 Calculus in bladder; E78.00 Pure hypercholesterolemia, unspecified; I10 Essential (primary) hypertension; Z79.899 Other long term (current) drug therapy
CPT/HCPCS: 36415; 80053; 81001; 83690; 85025; 87086; 96365; 96375; J0696; J2270; J3490

== ENCOUNTER 2023-06-02 16:14 | Emergency (ER) | payer BC, MEDICARE | END 2023-06-02 18:09 | disposition home or self-care (01) | LOC: ERS 16:14 | DX: N39.0 Urinary tract infection, site not specified (principal); E78.00 Pure hypercholesterolemia, unspecified; Z79.899 Other long term (current) drug therapy | CPT/HCPCS: 51702; 99283 ==

== ENCOUNTER 2023-08-13 13:39 | Outpatient (CLI) | payer MEDICARE ==
[2023-08-13 15:32] LABS: Hematocrit 46.2 % (38.8-50.0); Hemoglobin 15.6 g/dL (13.5-17.5); Mean Corpuscular HGB CONC 33.8 g/dL (32.0-36.0); Mean Corpuscular Hemoglobin 33.1 pg (27.0-33.0); Mean Corpuscular Volume 98.1 fl (81.2-95.1); Mean Platelet Volume 9.9 fl (7.4-10.4); Platelet Count 300 10x3/uL (150-450); Red Blood Cell (RBC) Count 4.71 10x6/uL (4.32-5.72); White Blood Cell (WBC) Count 10.7 10x3/uL (3.5-10.5)
[2023-08-13 15:52] LABS: PTT 28.5 sec (22.0-33.0); Prothrombin Time 10.9 sec (9.5-12.1)
[2023-08-13 15:55] LABS: Anion Gap 16 mmol/L (10-20); BUN (Urea Nitrogen) 20 mg/dL (8.4-25.7); Calc. Creatinine Clearance 0 mL/min (70-130); Calcium 9.4 mg/dL (7.8-10.44); Carbon Dioxide 28 mmol/L (23-31); Chloride 101 mmol/L (98-107); Estimated GFR 85; Glucose 144 mg/dL (83-110); Potassium 4.6 mmol/L (3.5-5.1); Sodium 140 mmol/L (136-145)
== END 2023-08-13 13:40 | disposition home or self-care (01) ==
LOC: LABBT 13:39
PROVIDERS: ATTEND Urology
DX: Z01.818 Encounter for other preprocedural examination (principal); Z43.5 Encounter for attention to cystostomy; E11.65 Type 2 diabetes mellitus with hyperglycemia; N40.1 Benign prostatic hyperplasia with lower urinary tract symptoms; N28.89 Other specified disorders of kidney and ureter; I86.1 Scrotal varices; I25.10 Atherosclerotic heart disease of native coronary artery without angina pectoris; N28.1 Cyst of kidney, acquired; N32.3 Diverticulum of bladder; N52.9 Male erectile dysfunction, unspecified; N20.0 Calculus of kidney; N42.0 Calculus of prostate; R39.12 Poor urinary stream; R82.71 Bacteriuria; R39.14 Feeling of incomplete bladder emptying; Z87.448 Personal history of other diseases of urinary system; Z90.79 Acquired absence of other genital organ(s)
CPT/HCPCS: 80048; 85027; 85610; 85730; 93005; 93010

== ENCOUNTER 2023-12-12 01:49 | Emergency (ER) | payer BC, MEDICARE | END 2023-12-12 03:15 | disposition home or self-care (01) | LOC: ERS 01:49 | DX: T83.090A Other mechanical complication of cystostomy catheter, initial encounter (principal); I10 Essential (primary) hypertension; I48.91 Unspecified atrial fibrillation; Z87.891 Personal history of nicotine dependence | CPT/HCPCS: 51702 ==

== ENCOUNTER 2023-12-14 12:28 | Emergency (ER) | payer MEDICARE ==
[2023-12-14 14:34] LABS: Bacteria/HPF 4+ HPF (None Seen); Bilirubin Negative (Negative); Blood, Urine Trace (Negative); CAUTI Indications for Culture Acute Hematuria; Clarity Extra Turbid (Clear); Glucose, Urine (Dipstick) 300 mg/dL (Negative); Ketone, Urine Negative (Negative); Leukocyte 500 Leu/uL (Negative); Nitrite 1+ (Negative); Protein, Urine (Dipstick) Greater than 600 mg/dL (Neg-Trace); RBC/HPF Greater than 50 HPF (0-3); Specific Gravity, Urine 1.028 (1.002-1.036); Squamous Epithelial None Seen HPF (0-3); Triple Phosphate Crystal 3+ HPF (None Seen); Urobilinogen Normal mg/dL (Less than 2); WBC/HPF Greater than 50 HPF (0-3); pH, Urine 8.5 (5.0-9.0)
[2023-12-14 14:37] LABS: Urine Culture Reflex Yes Yes
[2023-12-14 15:08] LABS: #Basophils 0.08 10x3/uL (0.0-0.2); %Eosinophils 3.4 % (0.0-10.0); %Lymphocytes 26.6 % (21.0-51.0); %Monocytes 10.8 % (0.0-10.0); %Neutrophils 57.3 % (42.0-75.0); Hematocrit 43.4 % (42.0-52.0); Hemoglobin 14.4 g/dL (14.0-18.0); Mean Corpuscular HGB CONC 33.2 g/dL (32.0-36.0); Mean Corpuscular Hemoglobin 32.5 pg (27.0-31.0); Mean Platelet Volume 10.1 fL (7.4-10.4); Platelet Count 168 10x3/uL (130-400); RBC Distribution Width 13.6 % (11.5-14.5); Red Blood Cell (RBC) Count 4.43 mill/uL (4.70-6.10)
[2023-12-14 15:28] LABS: Anion Gap 15 mmol/L (10-20); BUN (Urea Nitrogen) 17 mg/dL (8.4-25.7); Calc. Creatinine Clearance 0 mL/min (70-130); Calcium 9.2 mg/dL (7.8-10.44); Carbon Dioxide 28 mmol/L (23-31); Chloride 104 mmol/L (98-107); Estimated GFR 87; Glucose 190 mg/dL (83-110); Potassium 3.9 mmol/L (3.5-5.1); Sodium 143 mmol/L (136-145)
== END 2023-12-14 17:26 | disposition home or self-care (01) ==
LOC: ERS 12:28
DX: T83.098A Other mechanical complication of other urinary catheter, initial encounter (principal); I48.91 Unspecified atrial fibrillation; I10 Essential (primary) hypertension; Z87.891 Personal history of nicotine dependence
CPT/HCPCS: 36415; 51798; 80048; 81001; 85025; 87077; 87086; 87186; 99283

== ENCOUNTER 2024-01-31 23:17 | Emergency (ER) | payer MEDICARE | END 2024-02-01 00:59 | disposition home or self-care (01) | LOC: ERS 23:17 | DX: T83.038A Leakage of other urinary catheter, initial encounter (principal); I10 Essential (primary) hypertension; I48.91 Unspecified atrial fibrillation; Z87.891 Personal history of nicotine dependence; Z95.810 Presence of automatic (implantable) cardiac defibrillator | CPT/HCPCS: 51702; 99282 ==

== ENCOUNTER 2024-02-18 20:19 | Emergency (ER) | payer MEDICARE ==
[2024-02-19 00:15] LABS: #Basophils 0.06 10x3/uL (0.0-0.2); %Basophils 0.7 % (0.0-1.0); %Eosinophils 2.4 % (0.0-10.0); %Lymphocytes 29.2 % (21.0-51.0); %Monocytes 12.1 % (0.0-10.0); %Neutrophils 54.9 % (42.0-75.0); Hematocrit 45.6 % (42.0-52.0); Hemoglobin 15.3 g/dL (14.0-18.0); Mean Corpuscular HGB CONC 33.6 g/dL (32.0-36.0); Mean Corpuscular Volume 98.5 fL (78.0-98.0); Mean Platelet Volume 9.8 fL (7.4-10.4); Platelet Count 167 10x3/uL (130-400); RBC Distribution Width 13.3 % (11.5-14.5); Red Blood Cell (RBC) Count 4.63 mill/uL (4.70-6.10)
[2024-02-19 00:21] LABS: Anion Gap 13 mmol/L (10-20); BUN (Urea Nitrogen) 15 mg/dL (8.4-25.7); Calc. Creatinine Clearance 0 mL/min (70-130); Calcium 9.2 mg/dL (7.8-10.44); Carbon Dioxide 28 mmol/L (23-31); Chloride 99 mmol/L (98-107); Estimated GFR 85; Glucose 336 mg/dL (83-110); Potassium 4.7 mmol/L (3.5-5.1); Sodium 135 mmol/L (136-145)
[2024-02-19 00:40] LABS: Bilirubin Negative (Negative); Blood, Urine Large (Negative); Clarity Extra Turbid (Clear); Glucose, Urine (Dipstick) >=1000 mg/dL (Negative); Ketone, Urine Negative (Negative); Leukocyte Moderate (Negative); Nitrite Positive (Negative); Protein, Urine (Dipstick) 100 mg/dL (Neg-Trace); Specific Gravity, Urine 1.025 (1.005-1.030); Urobilinogen 0.2 mg/dL (Less than 2); pH, Urine 7.5 (5.0-9.0)
[2024-02-19 00:59] LABS: CAUTI Indications for Culture Acute Hematuria; Squamous Epithelial None Seen HPF (0-3); WBC/HPF Greater than 50 HPF (0-3)
[2024-02-19 01:00] LABS: Bacteria/HPF 2+ HPF (None Seen); Urine Culture Reflex Yes Yes
== END 2024-02-19 01:33 | disposition home or self-care (01) ==
LOC: ERS 20:19
DX: T83.091A Other mechanical complication of indwelling urethral catheter, initial encounter (principal); R33.9 Retention of urine, unspecified; R73.9 Hyperglycemia, unspecified; I10 Essential (primary) hypertension; Z87.891 Personal history of nicotine dependence
CPT/HCPCS: 36415; 80048; 81001; 85025; 87086; 87186; 99283

== ENCOUNTER 2024-02-28 23:48 | Inpatient (IN) | payer MEDICARE ==
[2024-02-29] MEDS ORDERED: Digoxin 0.5 MG/2 ML AMP ONE (01:30)
[2024-02-29 01:35] LABS: #Basophils 0.06 10x3/uL (0.0-0.2); %Basophils 0.5 % (0.0-1.0); %Eosinophils 0.5 % (0.0-10.0); %Lymphocytes 10.8 % (21.0-51.0); %Neutrophils 77.6 % (42.0-75.0); Hematocrit 44.6 % (42.0-52.0); Hemoglobin 14.6 g/dL (14.0-18.0); Mean Corpuscular HGB CONC 32.7 g/dL (32.0-36.0); Mean Corpuscular Hemoglobin 32.8 pg (27.0-31.0); Mean Corpuscular Volume 100.2 fL (78.0-98.0); Platelet Count 148 10x3/uL (130-400); RBC Distribution Width 13.5 % (11.5-14.5); Red Blood Cell (RBC) Count 4.45 mill/uL (4.70-6.10)
[2024-02-29 01:50] LABS: PTT 29.5 sec (22.9-36.1); Prothrombin Time 13.4 sec (12.0-14.7)
[2024-02-29 01:57] LABS: ALT (SGPT) 13 U/L (8-55); AST (SGOT) 10 U/L (5-34); Alkaline Phosphatase 105 U/L (40-110); Anion Gap 15 mmol/L (10-20); BUN (Urea Nitrogen) 12 mg/dL (8.4-25.7); Calc. Creatinine Clearance 0 mL/min (70-130); Calcium 8.8 mg/dL (7.8-10.44); Carbon Dioxide 23 mmol/L (23-31); Chloride 100 mmol/L (98-107); Estimated GFR 82; Globulin 3.3 g/dL (2.4-3.5); Glucose 366 mg/dL (83-110); Magnesium 2.2 mg/dL (1.6-2.6); Potassium 4.3 mmol/L (3.5-5.1); Protein, Total 6.3 g/dL (5.8-8.1); Sodium 134 mmol/L (136-145)
[2024-02-29 02:01] LABS: Troponin I 0.028 ng/mL (< 0.028)
[2024-02-29 04:21] LABS: Lactic Acid 1.95 mmol/L (0.5-2.2)
[2024-02-29] MEDS ORDERED: Enoxaparin 30 MG (0.3 mL) SYRINGE ONE (04:32)
[2024-02-29] MEDS ORDERED: Enoxaparin 100 MG (1 mL) SYRINGE ONE (04:33)
[2024-02-29] MEDS ORDERED: Enoxaparin 80 MG (0.8 mL) SYRINGE ONE (04:37)
[2024-02-29] MEDS ORDERED: Acetaminophen 650 MG Suppository PR PRN (05:09)
[2024-02-29] MEDS ORDERED: Ondansetron ODT 4 MG TAB PO PRN (05:09)
[2024-02-29] MEDS ORDERED: Ondansetron PF 4 MG/2 ML Vial IVP PRN (05:09)
[2024-02-29] MEDS ORDERED: Dextrose 5% in Water 1,000 ML IV PRN (06:33)
[2024-02-29] MEDS ORDERED: Dextrose 50% Abboject 50 ML SYRINGE SLOW IVP PRN (06:33)
[2024-02-29] MEDS ORDERED: Glucagon 1 MG/ML KIT IM PRN (06:33)
[2024-02-29 08:10] VITALS: BMI 28.0
[2024-02-29] MEDS: Acetaminophen 325 MG TAB PO SCH (08:10)
[2024-02-29] MEDS: metFORMIN 500 MG TAB PO SCH (08:30)
[2024-02-29] MEDS: Famotidine/PF 20 mg/2ml Vial SLOW IVP SCH (08:30)
[2024-02-29] MEDS: Vit A,C & E/Lutein/Minerals Tablet PO SCH (08:30)
[2024-02-29] MEDS: Sotalol HCl 80 MG TAB PO SCH (08:31)
[2024-02-29] MEDS ORDERED: Iopamidol-370 76% 500 ML MDV (1 ML CHARGE) ONE (08:51)
[2024-02-29 09:03] LABS: Critical Call Chem Troponin I NUR.JC12; Troponin I 0.276 ng/mL (< 0.028)
[2024-02-29] MEDS: Famotidine 20 MG TAB PO SCH (09:37)
[2024-02-29 10:05] LABS: Hematocrit 41.7 % (42.0-52.0); Hemoglobin 14.5 g/dL (14.0-18.0); Platelet Count 155 10x3/uL (130-400)
[2024-02-29] MEDS ORDERED: Acetaminophen 325 MG TAB PO SCH (11:00)
[2024-02-29] MEDS: Communication Order-Pharmacy FS ONE (11:17)
[2024-02-29] MEDS: Polyethylene Glycol 3350 17 GM Packet PO SCH (11:22)
[2024-02-29] MEDS: Insulin Lispro 100 UNIT/ML 10 ML VIAL SC PRN ×2 (11:29→21:02)
[2024-02-29 11:55] LABS: Critical Call Chem Troponin I NUR.JC12; Troponin I 0.605 ng/mL (< 0.028)
[2024-02-29] MEDS: FLU (Fluad Triv) TS24-25 (65UP)/MF59C/PF 45 MCG/0.5 ML Syringe IM ONE (15:42)
[2024-02-29] MEDS: Gabapentin 300 MG CAP PO SCH (20:07)
[2024-02-29] MEDS: Furosemide 20 MG TAB PO SCH (20:07)
[2024-02-29] MEDS: Atorvastatin Calcium 10 MG TAB PO SCH (20:07)
[2024-02-29] MEDS: Aspirin Chewable 81 MG TAB PO SCH (20:08)
[2024-02-29] MEDS: Enoxaparin 100 MG (1 mL) SYRINGE SC SCH (20:08)
[2024-02-29] MEDS ORDERED: TROLAMINE SALICYLATE TOP PRN ×2 (20:44→20:45)
[2024-02-29] MEDS ORDERED: Aspirin Chewable 81 MG TAB PO SCH (21:00)
[2024-03-01 04:29] LABS: #Basophils 0.06 10x3/uL (0.0-0.2); %Basophils 0.8 % (0.0-1.0); %Eosinophils 2.3 % (0.0-10.0); %Lymphocytes 35.8 % (21.0-51.0); %Monocytes 10.9 % (0.0-10.0); %Neutrophils 49.4 % (42.0-75.0); Hematocrit 39.8 % (42.0-52.0); Hemoglobin 13.5 g/dL (14.0-18.0); Mean Corpuscular HGB CONC 33.9 g/dL (32.0-36.0); Mean Corpuscular Volume 97.3 fL (78.0-98.0); Mean Platelet Volume 10.6 fL (7.4-10.4); Platelet Count 150 10x3/uL (130-400); RBC Distribution Width 13.7 % (11.5-14.5); Red Blood Cell (RBC) Count 4.09 mill/uL (4.70-6.10)
[2024-03-01 04:44] LABS: ALT (SGPT) 12 U/L (8-55); AST (SGOT) 12 U/L (5-34); Albumin 2.8 g/dL (3.4-4.8); Alkaline Phosphatase 98 U/L (40-110); Anion Gap 11 mmol/L (10-20); BUN (Urea Nitrogen) 11 mg/dL (8.4-25.7); Bilirubin, Total 0.7 mg/dL (0.2-1.2); Calc. Creatinine Clearance 98 mL/min (70-130); Calcium 8.7 mg/dL (7.8-10.44); Carbon Dioxide 28 mmol/L (23-31); Chloride 103 mmol/L (98-107); Estimated GFR 86; Globulin 3.3 g/dL (2.4-3.5); Glucose 233 mg/dL (83-110); Potassium 3.8 mmol/L (3.5-5.1); Protein, Total 6.1 g/dL (5.8-8.1); Sodium 138 mmol/L (136-145)
[2024-03-01] MEDS: Apixaban 5 MG TAB PO SCH (14:25)
[2024-03-01 14:27] VITALS: BP 128/78; TEMP 97.9
== END 2024-03-01 16:14 | disposition home or self-care (01) | DRG 280 ==
LOC: ERS 23:48 → OBSVTOIN 02-29 08:04 → 2SW 02-29 08:04 → OBS 03-01 11:18
PROVIDERS: ADMIT Student in an Organized Health Care Education/Training Program; ATTEND Student in an Organized Health Care Education/Training Program
DX: I48.0 Paroxysmal atrial fibrillation (principal); I26.99 Other pulmonary embolism without acute cor pulmonale; I21.A1 Myocardial infarction type 2; I82.412 Acute embolism and thrombosis of left femoral vein; E78.00 Pure hypercholesterolemia, unspecified; I10 Essential (primary) hypertension; E11.42 Type 2 diabetes mellitus with diabetic polyneuropathy; G89.29 Other chronic pain; M54.9 Dorsalgia, unspecified; Z95.810 Presence of automatic (implantable) cardiac defibrillator; Z90.49 Acquired absence of other specified parts of digestive tract; Z87.891 Personal history of nicotine dependence; Z79.82 Long term (current) use of aspirin; Z79.899 Other long term (current) drug therapy; Z79.84 Long term (current) use of oral hypoglycemic drugs
CPT/HCPCS: 36415; 36416; 71045; 71275; 80053; 83036; 83605; 83735; 83880; 84443; 84484; 85025; 85610; 85730; 90653; 93005; 93970; J1160; J1650; J1815; J3490; Q9967

== ENCOUNTER 2024-03-08 20:16 | Inpatient (IN) | payer MEDICARE ==
[2024-03-08] MEDS ORDERED: Diltiazem HCl/D5W 125 ML ONE (20:24)
[2024-03-08] MEDS ORDERED: Digoxin 0.5 MG/2 ML AMP ONE (20:43)
[2024-03-08 21:02] LABS: #Basophils 0.04 10x3/uL (0.0-0.2); %Basophils 0.5 % (0.0-1.0); %Eosinophils 1.8 % (0.0-10.0); %Lymphocytes 28.9 % (21.0-51.0); %Monocytes 12.7 % (0.0-10.0); %Neutrophils 55.1 % (42.0-75.0); Hematocrit 46.1 % (42.0-52.0); Hemoglobin 15.6 g/dL (14.0-18.0); Mean Corpuscular HGB CONC 33.8 g/dL (32.0-36.0); Mean Corpuscular Hemoglobin 32.9 pg (27.0-31.0); Mean Corpuscular Volume 97.3 fL (78.0-98.0); Mean Platelet Volume 10.1 fL (7.4-10.4); Platelet Count 165 10x3/uL (130-400); RBC Distribution Width 13.5 % (11.5-14.5); Red Blood Cell (RBC) Count 4.74 mill/uL (4.70-6.10)
[2024-03-08 21:16] LABS: INR-International Normal Ratio 1.3; PTT 34.2 sec (22.9-36.1); Prothrombin Time 15.9 sec (12.0-14.7)
[2024-03-08 21:35] LABS: Troponin I 0.038 ng/mL (< 0.028)
[2024-03-08 21:47] LABS: ALT (SGPT) 17 U/L (8-55); AST (SGOT) 12 U/L (5-34); Albumin 3.3 g/dL (3.4-4.8); Alkaline Phosphatase 117 U/L (40-110); Anion Gap 17 mmol/L (10-20); BUN (Urea Nitrogen) 14 mg/dL (8.4-25.7); Bilirubin, Total 0.5 mg/dL (0.2-1.2); Calc. Creatinine Clearance 0 mL/min (70-130); Calcium 9.3 mg/dL (7.8-10.44); Carbon Dioxide 24 mmol/L (23-31); Chloride 98 mmol/L (98-107); Estimated GFR 81; Globulin 3.8 g/dL (2.4-3.5); Glucose 425 mg/dL (83-110); Lipase 37 U/L (8-78); Magnesium 1.8 mg/dL (1.6-2.6); Potassium 3.7 mmol/L (3.5-5.1); Protein, Total 7.1 g/dL (5.8-8.1); Sodium 135 mmol/L (136-145)
[2024-03-08] MEDS ORDERED: Insulin Regular, Human 100 UNIT/ML 10 ML VIAL ONE (22:39)
[2024-03-08] MEDS ORDERED: Acetaminophen 325 MG TAB PO PRN (22:54)
[2024-03-08] MEDS ORDERED: Acetaminophen 650 MG Suppository PR PRN (22:54)
[2024-03-08] MEDS ORDERED: traMADol HCl 50 MG TAB PO PRN ×2 (22:54)
[2024-03-08] MEDS ORDERED: Dextrose 50% Abboject 50 ML SYRINGE SLOW IVP PRN (23:02)
[2024-03-08] MEDS ORDERED: Dextrose 5% in Water 1,000 ML IV PRN (23:02)
[2024-03-08] MEDS ORDERED: Glucagon 1 MG/ML KIT IM PRN (23:02)
[2024-03-08 23:05] LABS: Bilirubin Negative (Negative); Blood, Urine 3+ (Negative); CAUTI Indications for Culture Pelvic or flank pain; Clarity Turbid (Clear); Glucose, Urine (Dipstick) Greater than 1000 mg/dL (Negative); Ketone, Urine 10 mg/dL (Negative); Leukocyte 500 Leu/uL (Negative); Nitrite 1+ (Negative); Protein, Urine (Dipstick) 10 mg/dL (Neg-Trace); Specific Gravity, Urine 1.024 (1.002-1.036); Squamous Epithelial None Seen HPF (0-3); Urobilinogen Normal mg/dL (Less than 2); WBC/HPF Greater than 50 HPF (0-3)
[2024-03-08 23:07] LABS: Bacteria/HPF 1+ HPF (None Seen); Urine Culture Reflex Yes Yes
[2024-03-08 23:54] LABS: Troponin I 0.042 ng/mL (< 0.028)
[2024-03-09] MEDS: Sodium Chloride 0.9% 1,000 ML IV SCH ×2 (00:44→06:37)
[2024-03-09] MEDS: Fluticasone Propionate Nasal Spray 16 gm Bottle NASAL SCH ×2 (00:45→10:44)
[2024-03-09] MEDS: Insulin Lispro 100 UNIT/ML 10 ML VIAL SC PRN (00:54)
[2024-03-09 01:20] VITALS: BMI 28.4
[2024-03-09] MEDS: Apixaban 5 MG TAB PO SCH ×2 (01:52→10:42)
[2024-03-09] MEDS: Magnesium 2 GM/50 ML(in water) 2 GM in Premix 1 BAG IVPB SCH (02:05)
[2024-03-09 02:43] LABS: #Basophils 0.05 10x3/uL (0.0-0.2); %Basophils 0.6 % (0.0-1.0); %Lymphocytes 26.6 % (21.0-51.0); %Monocytes 11.8 % (0.0-10.0); %Neutrophils 58.4 % (42.0-75.0); Hematocrit 40.5 % (42.0-52.0); Hemoglobin 13.4 g/dL (14.0-18.0); Mean Corpuscular HGB CONC 33.1 g/dL (32.0-36.0); Mean Corpuscular Hemoglobin 32.8 pg (27.0-31.0); Mean Corpuscular Volume 99.3 fL (78.0-98.0); Mean Platelet Volume 9.7 fL (7.4-10.4); Platelet Count 146 10x3/uL (130-400); RBC Distribution Width 13.5 % (11.5-14.5); Red Blood Cell (RBC) Count 4.08 mill/uL (4.70-6.10)
[2024-03-09 03:09] LABS: Troponin I 0.046 ng/mL (< 0.028)
[2024-03-09 03:50] LABS: Anion Gap 11 mmol/L (10-20); BUN (Urea Nitrogen) 11 mg/dL (8.4-25.7); Calc. Creatinine Clearance 98 mL/min (70-130); Calcium 8.5 mg/dL (7.8-10.44); Carbon Dioxide 26 mmol/L (23-31); Chloride 105 mmol/L (98-107); Estimated GFR 86; Glucose 284 mg/dL (83-110); Potassium 3.6 mmol/L (3.5-5.1); Sodium 138 mmol/L (136-145)
[2024-03-09] MEDS: Diltiazem HCl/D5W 125 MG in Premix 1 BAG IVPB SCH (05:39)
[2024-03-09] MEDS ORDERED: Sotalol HCl 80 MG TAB PO SCH (09:00)
[2024-03-09] MEDS: Potassium Chloride 20 MEQ TAB PO SCH (10:42)
[2024-03-09] MEDS: Gabapentin 300 MG CAP PO SCH (10:42)
[2024-03-09] MEDS: Famotidine/PF 20 mg/2ml Vial SLOW IVP SCH (10:43)
[2024-03-09] MEDS: Aspirin Chewable 81 MG TAB PO SCH (10:43)
[2024-03-09] MEDS: Amiodarone 200 MG TAB PO SCH (14:39)
[2024-03-09] MEDS ORDERED: Polyethylene Glycol 3350 17 GM Packet PO PRN (20:11)
[2024-03-09] MEDS: Atorvastatin Calcium 10 MG TAB PO SCH (20:18)
[2024-03-09] MEDS: Senokot S 8.6-50 MG TAB PO PRN (20:21)
[2024-03-10 06:35] LABS: Anion Gap 13 mmol/L (10-20); BUN (Urea Nitrogen) 8 mg/dL (8.4-25.7); Calc. Creatinine Clearance 101 mL/min (70-130); Calcium 8.6 mg/dL (7.8-10.44); Carbon Dioxide 25 mmol/L (23-31); Chloride 105 mmol/L (98-107); Estimated GFR 87; Glucose 227 mg/dL (83-110); Potassium 4.2 mmol/L (3.5-5.1); Sodium 139 mmol/L (136-145)
[2024-03-10] MEDS: Metoprolol Tartrate 5 MG (5 mL) VIAL ONE (08:16)
[2024-03-10] MEDS: Metoprolol Tartrate 5 MG (5 mL) VIAL IVP SCH (08:36)
[2024-03-10] MEDS: Metoprolol Tartrate 25 MG TAB PO SCH (10:28)
[2024-03-10] MEDS: Magnesium Sulfate In Water 4 GM in Premix 1 BAG IVPB SCH (10:30)
[2024-03-10] MEDS: Magnesium Sulfate 4 GM in Sodium Chloride 0.9% 250 ML 250 ML IVPB SCH (10:59)
[2024-03-10] MEDS: metFORMIN 500 MG TAB PO SCH (17:29)
[2024-03-10] MEDS: Furosemide 20 MG TAB PO SCH (20:27)
[2024-03-10] MEDS: Fluticasone Propionate Nasal Spray 16 gm Bottle NASAL SCH (20:29)
[2024-03-10] MEDS: Diltiazem HCl/D5W 125 MG in Premix 1 BAG IVPB SCH (20:32)
[2024-03-11] MEDS: Metoprolol Tartrate 5 MG (5 mL) VIAL ONE (08:34)
[2024-03-11] MEDS: Metoprolol Tartrate 5 MG (5 mL) VIAL IVP SCH (08:55)
[2024-03-11] MEDS: Amiodarone 200 MG TAB PO SCH ×2 (08:55→21:23)
[2024-03-12] MEDS: Famotidine 20 MG TAB PO SCH (08:17)
[2024-03-12 09:17] VITALS: TEMP 96.5
[2024-03-12 13:09] VITALS: BP 106/83
== END 2024-03-12 12:45 | disposition home or self-care (01) | DRG 282 ==
LOC: SUATTDRO 20:16 → ERS 20:16 → IMCU/EMU 22:41
PROVIDERS: ADMIT Family Medicine; ATTEND Family Medicine
DX: I48.21 Permanent atrial fibrillation (principal); I21.A1 Myocardial infarction type 2; I35.0 Nonrheumatic aortic (valve) stenosis; I48.92 Unspecified atrial flutter; E86.0 Dehydration; E78.00 Pure hypercholesterolemia, unspecified; I10 Essential (primary) hypertension; E11.65 Type 2 diabetes mellitus with hyperglycemia; E87.6 Hypokalemia; N20.0 Calculus of kidney; E83.42 Hypomagnesemia; R33.8 Other retention of urine; Z90.89 Acquired absence of other organs; Z98.890 Other specified postprocedural states; Z87.891 Personal history of nicotine dependence; Z79.82 Long term (current) use of aspirin; Z79.4 Long term (current) use of insulin; Z86.711 Personal history of pulmonary embolism
CPT/HCPCS: 36415; 36416; 71045; 74176; 80048; 80053; 81001; 83690; 83735; 84443; 84484; 85025; 85610; 85730; 87077; 87086; 87186; 93005; 93306; 96365; 96366; 96375; J1160; J1815; J3475; J3490; J7030

== ENCOUNTER 2024-03-21 14:59 | Emergency (ER) | payer MEDICARE ==
[2024-03-21 19:11] LABS: Leukocyte Unable to Interpret Leu/uL (Negative); Nitrite Unable to Interpret (Negative); Protein, Urine (Dipstick) Unable to Interpret mg/dL (Neg-Trace)
[2024-03-21 19:12] LABS: Bilirubin Unable to Interpret (Negative); Blood, Urine Unable to Interpret (Negative); Glucose, Urine (Dipstick) Unable to Interpret mg/dL (Negative); Ketone, Urine Unable to Interpret mg/dL (Negative); Urobilinogen UNABLE TO INTERPRET mg/dL (Less than 2)
[2024-03-21 19:21] LABS: Clarity Mucous (Clear)
== END 2024-03-21 18:42 | disposition home or self-care (01) ==
LOC: ERS 14:59
DX: N39.0 Urinary tract infection, site not specified (principal); T83.018A Breakdown (mechanical) of other urinary catheter, initial encounter; I10 Essential (primary) hypertension; E11.9 Type 2 diabetes mellitus without complications; I48.91 Unspecified atrial fibrillation; Z79.82 Long term (current) use of aspirin; Z79.84 Long term (current) use of oral hypoglycemic drugs; Z79.01 Long term (current) use of anticoagulants; Z79.899 Other long term (current) drug therapy
CPT/HCPCS: 51102; 81001; 87077; 87086; 87186; 99284

== ENCOUNTER 2024-05-25 01:58 | Emergency (ER) | payer MEDICARE ==
[2024-05-25 02:55] LABS: Bilirubin Negative (Negative); Blood, Urine 2+ (Negative); CAUTI Indications for Culture Urological Procedure; Clarity Turbid (Clear); Glucose, Urine (Dipstick) Greater than 1000 mg/dL (Negative); Ketone, Urine Negative (Negative); Leukocyte 500 Leu/uL (Negative); Nitrite 2+ (Negative); Protein, Urine (Dipstick) 30 mg/dL (Neg-Trace); Squamous Epithelial None Seen HPF (0-3); Urobilinogen Normal mg/dL (Less than 2); WBC/HPF Greater than 50 HPF (0-3)
[2024-05-25 03:04] LABS: Bacteria/HPF Rare-Few HPF (None Seen); Urine Culture Reflex Yes Yes
== END 2024-05-25 03:46 | disposition home or self-care (01) ==
LOC: ERS 01:58
DX: T83.098A Other mechanical complication of other urinary catheter, initial encounter (principal); N39.0 Urinary tract infection, site not specified; I10 Essential (primary) hypertension; I48.91 Unspecified atrial fibrillation; E11.9 Type 2 diabetes mellitus without complications; Z79.84 Long term (current) use of oral hypoglycemic drugs; Z79.82 Long term (current) use of aspirin; Z79.01 Long term (current) use of anticoagulants; Z79.899 Other long term (current) drug therapy
CPT/HCPCS: 51102; 81001; 87086; 99284

== ENCOUNTER 2024-06-03 05:45 | Day surgery (SDC) | payer MEDICARE ==
[2024-05-31 12:10] VITALS: BMI 26.7
[2024-06-03] MEDS ORDERED: Lidocaine 1% PF 5 ML VIAL ONE (08:24)
[2024-06-03] MEDS ORDERED: PROPOFOL 200 MG/20 ML VIAL ONE (08:24)
[2024-06-03] MEDS ORDERED: PHENYLEPHRINE-NS 100 MCG/ML 10 ML SYRINGE ONE (08:24)
== END 2024-06-03 09:25 | disposition home or self-care (01) ==
LOC: SDC 05:45
PROVIDERS: ATTEND Internal Medicine Cardiovascular Disease
PROC: 5A2204Z Restoration of Cardiac Rhythm, Single (ICD-10-PCS; principal; 2024-06-03)
DX: I48.19 Other persistent atrial fibrillation (principal); I25.118 Atherosclerotic heart disease of native coronary artery with other forms of angina pectoris; I49.3 Ventricular premature depolarization; I26.94 Multiple subsegmental thrombotic pulmonary emboli without acute cor pulmonale; I10 Essential (primary) hypertension; E78.00 Pure hypercholesterolemia, unspecified; Z95.810 Presence of automatic (implantable) cardiac defibrillator; Z87.891 Personal history of nicotine dependence; Z90.89 Acquired absence of other organs; Z79.01 Long term (current) use of anticoagulants; Z79.82 Long term (current) use of aspirin; Z79.899 Other long term (current) drug therapy
CPT/HCPCS: 82962; 92960; J2704; 36416

== ENCOUNTER 2024-12-19 16:15 | Emergency (ER) | payer MEDICARE ==
[2024-12-19 18:04] LABS: CAUTI Indications for Culture Pelvic or flank pain; Glucose, Urine (Dipstick) Normal (Negative); Leukocyte 500 Leu/uL (Negative); Protein, Urine (Dipstick) 20 mg/dL (Neg-Trace); RBC/HPF Greater than 50 HPF (0-3); Specific Gravity, Urine 1.015 (1.002-1.036); WBC/HPF Greater than 50 HPF (0-3)
[2024-12-19 18:10] LABS: Bacteria/HPF 1+ HPF (None Seen)
[2024-12-19 18:11] LABS: Urine Culture Reflex Yes Yes
== END 2024-12-19 18:40 | disposition home or self-care (01) ==
LOC: ERS 16:15
DX: T83.091A Other mechanical complication of indwelling urethral catheter, initial encounter (principal); N39.0 Urinary tract infection, site not specified; I48.91 Unspecified atrial fibrillation; E78.00 Pure hypercholesterolemia, unspecified; I10 Essential (primary) hypertension; E11.9 Type 2 diabetes mellitus without complications; Z55.6 Problems related to health literacy
CPT/HCPCS: 81001; 87077; 87086; 87186; 99283

== ENCOUNTER 2025-01-28 07:49 | Emergency (ER) | payer MEDICARE ==
[2025-01-28 08:19] LABS: #Basophils 0.07 10x3/uL (0.0-0.2); #Eosinophils 0.24 10x3/uL (0.0-0.7); #Monocytes 1.14 10x3/uL (0.11-0.59); #Neutrophils 5.13 10x3/uL (1.40-6.50); %Basophils 0.9 % (0.0-1.0); %Eosinophils 3.0 % (0.0-10.0); %Lymphocytes 16.7 % (21.0-51.0); %Monocytes 14.3 % (0.0-10.0); %Neutrophils 64.2 % (42.0-75.0); Hematocrit 38.7 % (42.0-52.0); Hemoglobin 13.0 g/dL (14.0-18.0); Mean Corpuscular Hemoglobin 31.3 pg (27.0-31.0); Mean Corpuscular Volume 93.3 fL (78.0-98.0); Platelet Count 199 10x3/uL (130-400); Red Blood Cell (RBC) Count 4.15 mill/uL (4.70-6.10); White Blood Cell (WBC) Count 7.98 10x3/uL (4.8-10.8)
[2025-01-28 08:38] LABS: ALT (SGPT) 21 U/L (Less than 45); AST (SGOT) 32 U/L (11-34); Albumin 3.1 g/dL (3.1-4.5); Alkaline Phosphatase 70 U/L (40-110); Anion Gap 15 mmol/L (10-20); BUN (Urea Nitrogen) 21 mg/dL (8.4-25.7); Bilirubin, Total 0.9 mg/dL (0.3-1.2); Calc. Creatinine Clearance 0 mL/min (70-130); Calcium 9.1 mg/dL (7.8-10.44); Carbon Dioxide 27 mmol/L (23-31); Chloride 99 mmol/L (98-107); Globulin 3.8 g/dL (2.4-3.5); Glucose 135 mg/dL (83-110); Potassium 3.8 mmol/L (3.5-5.1); Sodium 137 mmol/L (136-145)
[2025-01-28 08:53] LABS: Bacteria/HPF 3+ HPF (None Seen); CAUTI Indications for Culture Dysuria,urgency,freq; Glucose, Urine (Dipstick) Normal (Negative); Leukocyte 500 Leu/uL (Negative); Protein, Urine (Dipstick) 70 mg/dL (Neg-Trace); RBC/HPF 0-3 HPF (0-3); Specific Gravity, Urine 1.026 (1.002-1.036)
[2025-01-28 09:08] LABS: Urine Culture Reflex No No
== END 2025-01-28 10:26 | disposition home or self-care (01) ==
LOC: ERS 07:49
DX: R53.1 Weakness (principal); N39.0 Urinary tract infection, site not specified; I48.91 Unspecified atrial fibrillation; I10 Essential (primary) hypertension; E78.5 Hyperlipidemia, unspecified; E11.9 Type 2 diabetes mellitus without complications; Z79.84 Long term (current) use of oral hypoglycemic drugs; Z79.01 Long term (current) use of anticoagulants; Z79.82 Long term (current) use of aspirin; Z79.4 Long term (current) use of insulin; Z79.899 Other long term (current) drug therapy
CPT/HCPCS: 71045; 80053; 81001; 84484; 85025; 87086; 93005

== ENCOUNTER 2025-02-03 05:32 | Emergency (ER) | payer MEDICARE ==
[2025-02-03 07:09] LABS: #Basophils 0.06 10x3/uL (0.0-0.2); #Eosinophils 0.20 10x3/uL (0.0-0.7); #Monocytes 1.07 10x3/uL (0.11-0.59); #Neutrophils 4.23 10x3/uL (1.40-6.50); %Basophils 0.8 % (0.0-1.0); %Eosinophils 2.7 % (0.0-10.0); %Lymphocytes 25.2 % (21.0-51.0); %Monocytes 14.2 % (0.0-10.0); %Neutrophils 56.3 % (42.0-75.0); Hematocrit 40.1 % (42.0-52.0); Hemoglobin 13.3 g/dL (14.0-18.0); Mean Corpuscular Hemoglobin 31.4 pg (27.0-31.0); Mean Corpuscular Volume 94.8 fL (78.0-98.0); Platelet Count 194 10x3/uL (130-400); Red Blood Cell (RBC) Count 4.23 mill/uL (4.70-6.10); White Blood Cell (WBC) Count 7.51 10x3/uL (4.8-10.8)
[2025-02-03 07:20] LABS: ALT (SGPT) 20 U/L (Less than 45); AST (SGOT) 26 U/L (11-34); Albumin 3.3 g/dL (3.1-4.5); Alkaline Phosphatase 76 U/L (40-110); Anion Gap 15 mmol/L (10-20); BUN (Urea Nitrogen) 22 mg/dL (8.4-25.7); Bilirubin, Total 1.0 mg/dL (0.3-1.2); Calc. Creatinine Clearance 0 mL/min (70-130); Calcium 9.2 mg/dL (7.8-10.44); Carbon Dioxide 32 mmol/L (23-31); Chloride 96 mmol/L (98-107); Globulin 3.7 g/dL (2.4-3.5); Glucose 113 mg/dL (83-110); Lipase 30 U/L (8-78); Magnesium 1.8 mg/dL (1.6-2.6); Potassium 3.0 mmol/L (3.5-5.1); Sodium 140 mmol/L (136-145)
== END 2025-02-03 16:35 | disposition home or self-care (01) ==
LOC: ERS 05:32
DX: R07.89 Other chest pain (principal); R42 Dizziness and giddiness; E87.6 Hypokalemia; R29.706 NIHSS score 6; D64.9 Anemia, unspecified; I48.91 Unspecified atrial fibrillation; I10 Essential (primary) hypertension; E11.9 Type 2 diabetes mellitus without complications; E78.00 Pure hypercholesterolemia, unspecified; Z79.01 Long term (current) use of anticoagulants; Z95.810 Presence of automatic (implantable) cardiac defibrillator
CPT/HCPCS: 71045; 80053; 83036; 83690; 83735; 84484; 85025; 93005

== ENCOUNTER 2025-04-24 15:31 | Emergency (ER) | payer MEDICARE ==
[2025-04-24 19:24] LABS: Bacteria/HPF 4+ HPF (None Seen); CAUTI Indications for Culture Dysuria,urgency,freq; WBC/HPF Greater than 50 HPF (0-3)
[2025-04-24 19:35] LABS: Specific Gravity, Urine 1.005 (1.005-1.030)
[2025-04-24 19:41] LABS: Urine Culture Reflex Yes Yes
[2025-04-24] MEDS ORDERED: Cefdinir 300 MG CAP PO SCH (19:45)
[2025-04-24 19:50] LABS: Glucose, Urine (Dipstick) >=1000 mg/dL (Negative); Leukocyte Large (Negative); Protein, Urine (Dipstick) 100 mg/dL (Neg-Trace)
== END 2025-04-24 20:06 | disposition home or self-care (01) ==
LOC: ERS 15:31
DX: N39.0 Urinary tract infection, site not specified (principal); T83.098A Other mechanical complication of other urinary catheter, initial encounter; I48.91 Unspecified atrial fibrillation; I10 Essential (primary) hypertension; E11.9 Type 2 diabetes mellitus without complications
CPT/HCPCS: 51705; 81001; 87077; 87086; 87186; 99283

== ENCOUNTER 2025-05-11 12:30 | Emergency (ER) | payer MEDICARE ==
[2025-05-11] MEDS ORDERED: Iopamidol-370 76% 500 ML MDV (1 ML CHARGE) ONE (13:33)
[2025-05-11 14:11] LABS: #Basophils 0.06 10x3/uL (0.0-0.2); #Eosinophils 0.19 10x3/uL (0.0-0.7); #Monocytes 1.27 10x3/uL (0.11-0.59); #Neutrophils 9.69 10x3/uL (1.40-6.50); %Basophils 0.5 % (0.0-1.0); %Eosinophils 1.5 % (0.0-10.0); %Lymphocytes 8.7 % (21.0-51.0); %Monocytes 10.3 % (0.0-10.0); %Neutrophils 78.4 % (42.0-75.0); Hematocrit 39.3 % (42.0-52.0); Hemoglobin 12.3 g/dL (14.0-18.0); Mean Corpuscular Hemoglobin 28.7 pg (27.0-31.0); Mean Corpuscular Volume 91.8 fL (78.0-98.0); Platelet Count 216 10x3/uL (130-400); Red Blood Cell (RBC) Count 4.28 mill/uL (4.70-6.10); White Blood Cell (WBC) Count 12.37 10x3/uL (4.8-10.8)
[2025-05-11 14:27] LABS: ALT (SGPT) 20 U/L (Less than 45); AST (SGOT) 24 U/L (11-34); Albumin 3.5 g/dL (3.1-4.5); Alkaline Phosphatase 104 U/L (40-110); Anion Gap 12 mmol/L (10-20); BUN (Urea Nitrogen) 16 mg/dL (8.4-25.7); Bilirubin, Total 0.6 mg/dL (0.3-1.2); Calc. Creatinine Clearance 0 mL/min (70-130); Calcium 9.2 mg/dL (7.8-10.44); Carbon Dioxide 26 mmol/L (23-31); Chloride 105 mmol/L (98-107); Globulin 3.5 g/dL (2.4-3.5); Glucose 153 mg/dL (83-110); Potassium 4.3 mmol/L (3.5-5.1); Sodium 139 mmol/L (136-145)
== END 2025-05-11 16:10 | disposition home or self-care (01) ==
LOC: ERS 12:30
DX: M25.552 Pain in left hip (principal); I48.91 Unspecified atrial fibrillation; E78.00 Pure hypercholesterolemia, unspecified; I10 Essential (primary) hypertension; E11.9 Type 2 diabetes mellitus without complications; Z79.899 Other long term (current) drug therapy; Z79.82 Long term (current) use of aspirin; Z79.84 Long term (current) use of oral hypoglycemic drugs; Z79.01 Long term (current) use of anticoagulants; W05.0XXA Fall from non-moving wheelchair, initial encounter
CPT/HCPCS: 70450; 71260; 72125; 74177; 80053; 85025; Q9967